=== PATIENT | female | born 1970 | race Caucasian/White ===

== ENCOUNTER → 2017-11-20 15:01 | Outpatient (CLI) | payer OTHER, MEDICAID, SELFPAY ==
--- NOTE | 2017-11-20 | DI.MRI.S_ITS ---
PROCEDURE: MRFOOT LT WO CON INDICATIONS: LEFT FOOT PAIN TECHNIQUE: Noncontrast sagittal T1 spin echo and T2 fast spin echo with fat saturation, long-axis T1 spin echo and T2 fast spin echo with fat saturation, short-axis T1 spin echo and T2 fast spin echo with fat saturation through the forefoot. COMPARISON: None. FINDINGS: Image quality: Excellent. Bones and joints: No bone marrow contusions or metatarsal stress fractures. The sesamoid bones appear in expected positions, without internal edema. Moderate first metatarsophalangeal joint degeneration. Mild diffuse midfoot degenerative spurring. No intraosseous lesions. Soft tissues: The visualized plantar foot muscles demonstrate normal signal and bulk. Visualized flexor and extensor tendons appear intact, without tenosynovitis. The distal insertions of the peroneus brevis and longus tendons appear intact. The principal Lisfranc ligament appears intact. No soft tissue ganglion cysts or bursal fluid collections. Sagittal images demonstrate no evidence for plantar plate tears. IMPRESSION: Moderate first MTP joint degeneration. Otherwise, grossly unremarkable examination as detailed above.. Dictated by: Sunil Naik M.D. on 11/20/2017 at 17:15 Approved by: Sunil Naik M.D. on 11/20/2017 at 17:22
== END ==
PROVIDERS: PCP Orthopaedic Surgery Foot and Ankle Surgery; Visit Provider Orthopaedic Surgery Foot and Ankle Surgery
DX: M19.072 Primary osteoarthritis, left ankle and foot (principal); M77.42 Metatarsalgia, left foot; M79.672 Pain in left foot
CPT/HCPCS: 73718

== ENCOUNTER 2017-12-06 21:11 | Emergency (ER) | payer OTHER, MEDICAID, SELFPAY ==
[2017-12-06 21:16] VITALS: BP 137/88; PULSE 86; RESP 18; TEMP 36.6; O2SAT 99; BMI 31.6
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
[2017-12-07 01:15] VITALS: BP 121/87; PULSE 83; O2SAT 96
== END 2017-12-07 01:49 | disposition home or self-care (01) ==
PROVIDERS: Emergency Provider Emergency Medicine; PCP Orthopaedic Surgery Foot and Ankle Surgery
DX: S00.93XA Contusion of unspecified part of head, initial encounter (principal); W20.8XXA Other cause of strike by thrown, projected or falling object, initial encounter
CPT/HCPCS: 70450; 99282; 99284

== ENCOUNTER 2018-07-02 14:22 | Emergency (ER) | payer OTHER, MEDICAID, SELFPAY ==
[2018-07-02 14:44] VITALS: BP 138/87; PULSE 78; RESP 20; TEMP 37.3; O2SAT 100
--- NOTE | 2018-07-02 14:49 | DI.US.S_ITS ---
PROCEDURE: US PERIPH VENOUS LOW EXTREM LT INDICATIONS: LEFT LEG PAIN/NUMBNESS TECHNIQUE: Real-time imaging, as well as color and pulse Doppler interrogation, were performed of the lower extremity deep veins from the inguinal ligament to the popliteal fossa. COMPARISON: None. FINDINGS: The deep veins are normally compressible, and free of intraluminal thrombus. Color and pulse Doppler demonstrate normal phasic intraluminal flow. There is normal augmentation response to distal compression maneuver. IMPRESSION: No deep vein thrombosis of the left lower extremity. Dictated by: Regina Schwartz M.D. on 07/02/2018 at 15:34 Approved by: Regina Schwartz M.D. on 07/02/2018 at 15:35
[2018-07-02 15:22] LABS: Add Manual Diff / Slide Review NO; Basophils Absolute Auto 0 /uL (0-100); Basophils Percent Auto 0.5 % (0-2); Eosinophils Absolute Auto 100 /uL (0-450); Eosinophils Percent Auto 1.4 % (2-4); Hematocrit 41.3 % (36-46); Hemoglobin 14.2 g/dL (12.0-16.0); Lymphocytes Absolute Auto 1600 /uL (1100-4500); Mean Corpuscular HGB Conc 34.4 % (30-36); Mean Corpuscular Hemoglobin 32.6 PG (26-34); Monocytes Absolute Auto 500 /uL (0-900); Monocytes Percent Auto 8.8 % (3-14); Neutrophils Absolute Auto 3600 /uL (1500-7000); Neutrophils Percent Auto 61.3 % (50-75); Platelet Count 236 X10^3/uL (150-400); Red Blood Cell Count 4.35 X10^6/uL (4.0-5.2); Red Cell Distribution Width 11.8 % (11.6-14.8); White Blood Cell Count 5.8 X10^3/uL (4.5-11.0)
[2018-07-02 15:23] LABS: Alanine Aminotransferase 29 IU/L (9-52); Albumin 4.4 g/dL (3.5-5.0); Albumin Globulin Ratio 1.3 (1.0-2.8); Alkaline Phosphatase 72 U/L (38-126); Aspartate Aminotransferase 24 IU/L (14-36); Bilirubin Total 0.6 mg/dL (0.2-1.3); Blood Urea Nitrogen 12 mg/dL (7-17); Calcium 9.3 mg/dL (8.4-10.2); Carbon Dioxide 29 mmol/L (22-32); Chloride 103 mmol/L (98-107); Estimated Glomerular Filt Rate > 60.0 mL/min (>60); Globulin 3.5 g/dL (1.7-4.1); Glucose 88 mg/dL (70-100); HEMOLYSIS < 15 (0-50); Potassium 3.9 mmol/L (3.4-5.1); Sodium 140 mmol/L (137-145); Total Protein 7.9 g/dL (6.3-8.2)
[2018-07-02 15:59] LABS: D Dimer < 200 ng/mL (<230)
--- NOTE | 2018-07-02 16:44 | PC.NURSE ---
pt requested note in chart stating she has had Vanco in the past with and did not have a reaction, also that she can take levofloxacin and flagyl IV only and after benadryl
--- NOTE | 2018-07-02 17:20 | ED_ITS ---
HPI - Extremity Problem <Jillian Mcdaniel PA-C - Last Filed: 07/02/18 21:59> General Chief complaint: Extremity Problem,Nontraumatic Stated complaint: left leg pain, thinks she has a blood clot,numb Time Seen by Provider: 07/02/18 17:10 Source: patient Mode of arrival: ambulatory Limitations: no limitations History of Present Illness HPI Narrative: this 47-year-old female comes to ED due to left leg symptoms that started 06/30. She states that she noted a pricking and burning sensation with the light touch of fabric, and noted redness on the kneecap and around the proximal border. She was concerned about possible infection though she has not had any bites or wounds. She washed it with Betadine and peroxide then applied mupirocin and rash was gone the next day. On the , she felt like her left foot was cold, numb, and heavy . She talked to a nurse that she knows and was able to move the foot and ankle normally and could feel her pulses so decided to monitor. She noticed after standing for a bit that the foot felt warm and noticed a warm sensation in her davis, and then began to have some pain in the calf especially with flexing her foot, so decided to come in due to that, concerned about possible blood clot She does have a history of the low back pain with a history of L5 herniated disc and pain across her back, but states this does not feel typical for that. She states that she does have pain down her leg but feels like it travels up the leg rather down the back of it. She does not have history of blood clots She denies any rash, fever, bites or wounds, or known exposures. She notes that she has also had the 2 week history of right-sided pain in the liver area and states she can have pain while breathing in at times. She notes that she has been drinking more alcohol during that time, up to 5 or 6 drinks nightly verses usual 3 or maximum 4 due to stressors. she states that she stopped that a few days ago. She has not had any nausea or vomiting. She has not had any urinary symptoms or bowel changes, again denies fever. She states that she has had intermittent gallbladder pain for 15 or more years and modified her diet and treats this on her own as she would never consider surgery for this. She has also been told that she has fatty liver. She denies any dyspnea or wheeze. She denies any upper respiratory symptoms or illness. Denies any recent travel or exposures. Denies any new medications or herbal preparation. She has not had any other chest pain. States she had 1-2 minutes of abdominal pain last night that resolved Related Data Home Medications Medication Instructions Recorded Confirmed cholecalciferol (vitamin D3) 2,000 iu PO DAILY #0 04/11/11 07/02/18 [Vitamin D3] omega 1-hxp-qjv-fish oil [Fish Oil] 1 cap PO DAILY #0 04/11/11 07/02/18 vitamin E 400 unit PO DAILY #0 04/11/11 07/02/18 Previous Rx's Medication Instructions Recorded mupirocin calcium 2 % TOPICAL TID #1 tube 12/29/11 mupirocin calcium 1 applictn TOP BID #60 gram 07/02/18 Allergies Allergy/AdvReac Type Severity Reaction Status Date / Time amoxicillin [AMOXICILLIN] Allergy Intermediate Unverified 08/16/17 12:16 aspirin [ASPIRIN] Allergy Intermediate Unverified 08/16/17 12:16 clindamycin [CLINDAMYCIN] Allergy Intermediate Unverified 08/16/17 12:16 doxycycline [DOXYCYCLINE] Allergy Intermediate Unverified 08/16/17 12:16 erythromycin base Allergy Intermediate Unverified 08/16/17 12:16 [From ERYTHROCIN] Penicillins [PENICILLINS] Allergy Intermediate Unverified 08/16/17 12:16 Review of Systems <Jillian Mcdaniel PA-C - Last Filed: 07/02/18 21:59> Review of Systems ROS Unobtainable: All systems reviewed & are unremarkable except as noted in HPI and below PFSH <Jillian Mcdaniel PA-C - Last Filed: 07/02/18 21:59> Medical History H/O chronic cholecystitis (Chronic) Healthy adult (Chronic) Herniated nucleus pulposus, L5-S1 (Chronic) No pertinent family history (Chronic) Surgical History No pertinent past surgical history (Chronic) Social History Smoking Status: Never smoker Social History Smoking Status: Never smoker Exam <Jillian Mcdaniel PA-C - Last Filed: 07/02/18 21:59> Narrative Exam Narrative: GENERAL APPEARANCE: Patient sitting comfortably, in no distress. HEENT: PERRL, EOMI, no scleral icterus NECK: Supple LUNGS: Clear to auscultation bilaterally. HEART: Rate and rhythm regular, normal S1 and S2, no S3 or S4. ABDOMEN: Soft, nondistended, bowel sounds present x 4 quadrants, no masses palpable. moderate localized tenderness at the right costal margin without guarding or rebound. No CVAT EXTREMITIES: No edema, no cyanosis. Pedal pulses intact. No point tenderness over the calf DERMATOLOGIC: No jaundice or exanthem NEUROLOGIC: Alert and oriented with normal speech and coordination. +left straight leg raise, negative on the right MUSCULOSKELETAL: no point tenderness over the lumbosacral spine. Strength 5/5 throughout bilateral hip flexors, knee extensors, foot plantar flexion Initial Vital Signs Initial Vital Signs: Vital Signs Temperature 99.2 F 07/02/18 14:44 Pulse Rate 78 07/02/18 14:44 Respiratory Rate 20 07/02/18 14:44 Blood Pressure 138/87 07/02/18 14:44 Pulse Oximetry 100 07/02/18 14:44 <Tiff Piña DO - Last Filed: 07/03/18 12:29> Initial Vital Signs Initial Vital Signs: Vital Signs Temperature 99.2 F 07/02/18 14:44 Pulse Rate 78 07/02/18 14:44 Respiratory Rate 20 07/02/18 14:44 Blood Pressure 138/87 07/02/18 14:44 Pulse Oximetry 100 07/02/18 14:44 Course <Jillian Mcdaniel PA-C - Last Filed: 07/02/18 21:59> Additional Information: patient came in today mainly due to developing symptoms with her left leg over the last few days and concern for possible blood clot. Testing was negative today. She has had other ongoing symptoms for a couple of weeks, no acute change. She has a long history apparently of gallbladder symptoms which wax and wane that she treats on her own. She would not consider surgery or intervention for this. She is afebrile, not having any vomiting or worsening pain. Offered further workup option versus follow up as an outpatient and she elects the ladder and agrees to follow up with her primary care clinic for this as well as her leg symptoms, which could be related to herniated disc though are atypical. Return precautions reviewed and she is agreeable Orders Ordered: ED Orders 07/02/18 14:49 US periph venous low extrem lt Stat 07/02/18 15:00 Complete Blood Count AUTO DIFF Stat Comprehensive Metabolic Panel Stat DD [D Dimer] Stat Vital Signs - 8 hr 07/02/18 14:44 07/02/18 17:30 Temperature 99.2 F 98.6 F Pulse Rate 78 81 Respiratory Rate 20 19 Blood Pressure 138/87 Blood Pressure [Left Arm] 124/70 Pulse Oximetry 100 99 <Tiff Piña DO - Last Filed: 07/03/18 12:29> Orders Ordered: ED Orders 07/02/18 14:49 US periph venous low extrem lt Stat 07/02/18 15:00 Complete Blood Count AUTO DIFF Stat Comprehensive Metabolic Panel Stat DD [D Dimer] Stat Vital Signs - 8 hr 07/02/18 14:44 07/02/18 17:30 Temperature 99.2 F 98.6 F Pulse Rate 78 81 Respiratory Rate 20 19 Blood Pressure 138/87 Blood Pressure [Left Arm] 124/70 Pulse Oximetry 100 99 MDM - Extremity (Nontraumatic) <Jillian Mcdaniel PA-C - Last Filed: 07/02/18 21:59> Lab Data Result diagrams: 07/02/18 15:00 07/02/18 15:00 Lab Results 07/02/18 07/02/18 07/02/18 Range/Units 15:00 15:00 15:00 WBC 5.8 (4.5-11.0) X10^3/uL RBC 4.35 (4.0-5.2) X10^6/uL Hgb 14.2 (12.0-16.0) g/dL Hct 41.3 (36-46) % MCV 95.0 (80-100) fL MCH 32.6 (26-34) PG MCHC 34.4 (30-36) % RDW 11.8 (11.6-14.8) % Plt Count 236 (150-400) X10^3/uL Neut % (Auto) 61.3 (50-75) % Lymph % (Auto) 28.0 (25-40) % Patrick % (Auto) 8.8 (3-14) % Eos % (Auto) 1.4 L (2-4) % Baso % (Auto) 0.5 (0-2) % Neut # (Auto) 3600 (7558-7629) /uL Lymph # (Auto) 1600 (5087-3926) /uL Patrick # (Auto) 500 (0-900) /uL Eos # (Auto) 100 (0-450) /uL Baso # (Auto) 0 (0-100) /uL D-Dimer < 200 (<230) ng/mL Sodium 140 (137-145) mmol/L Potassium 3.9 (3.4-5.1) mmol/L Chloride 103 (98-107) mmol/L Carbon Dioxide 29 (22-32) mmol/L BUN 12 (7-17) mg/dL Creatinine 0.60 (0.52-1.04) mg/dL Estimated GFR > 60.0 (>60) mL/min BUN/Creatinine Ratio 20.0 (6-22) Glucose 88 (70-100) mg/dL Calcium 9.3 (8.4-10.2) mg/dL Total Bilirubin 0.6 (0.2-1.3) mg/dL AST 24 (14-36) IU/L ALT 29 (9-52) IU/L Alkaline Phosphatase 72 (38-126) U/L Total Protein 7.9 (6.3-8.2) g/dL Albumin 4.4 (3.5-5.0) g/dL Globulin 3.5 (1.7-4.1) g/dL Albumin/Globulin Ratio 1.3 (1.0-2.8) <Tiff Piña, DO - Last Filed: 07/03/18 12:29> Lab Data Lab Results 07/02/18 07/02/18 07/02/18 Range/Units 15:00 15:00 15:00 WBC 5.8 (4.5-11.0) X10^3/uL RBC 4.35 (4.0-5.2) X10^6/uL Hgb 14.2 (12.0-16.0) g/dL Hct 41.3 (36-46) % MCV 95.0 (80-100) fL MCH 32.6 (26-34) PG MCHC 34.4 (30-36) % RDW 11.8 (11.6-14.8) % Plt Count 236 (150-400) X10^3/uL Neut % (Auto) 61.3 (50-75) % Lymph % (Auto) 28.0 (25-40) % Patrick % (Auto) 8.8 (3-14) % Eos % (Auto) 1.4 L (2-4) % Baso % (Auto) 0.5 (0-2) % Neut # (Auto) 3600 (8344-0638) /uL Lymph # (Auto) 1600 (2389-6726) /uL Patrick # (Auto) 500 (0-900) /uL Eos # (Auto) 100 (0-450) /uL Baso # (Auto) 0 (0-100) /uL D-Dimer < 200 (<230) ng/mL Sodium 140 (137-145) mmol/L Potassium 3.9 (3.4-5.1) mmol/L Chloride 103 (98-107) mmol/L Carbon Dioxide 29 (22-32) mmol/L BUN 12 (7-17) mg/dL Creatinine 0.60 (0.52-1.04) mg/dL Estimated GFR > 60.0 (>60) mL/min BUN/Creatinine Ratio 20.0 (6-22) Glucose 88 (70-100) mg/dL Calcium 9.3 (8.4-10.2) mg/dL Total Bilirubin 0.6 (0.2-1.3) mg/dL AST 24 (14-36) IU/L ALT 29 (9-52) IU/L Alkaline Phosphatase 72 (38-126) U/L Total Protein 7.9 (6.3-8.2) g/dL Albumin 4.4 (3.5-5.0) g/dL Globulin 3.5 (1.7-4.1) g/dL Albumin/Globulin Ratio 1.3 (1.0-2.8) Discharge Plan Departure Patient Disposition: Home Clinical Impression: Acute pain of left lower extremity, Right upper quadrant abdominal pain Discharge Date/Time: 07/02/18 18:24 Interventions: ED Discharge Assessment Last Done: 07/02/18 18:24 Instructions: DI for Leg Pain Activity Restrictions/Additional Instructions: Please return as we talked about if you have any acutely worsening symptoms, i.e. worsening right side pain, severe respiratory difficulties, new vomiting etc. Otherwise, please call your PCP office 1st thing tomorrow and let them know you were seen in the emergency room so that you can arrange follow-up. The source of your left leg pain is not clear today. You are correct in that it is not typical pain, however on exam this is most consistent with pain that could be generated from your low back. You should follow-up with your PCP on this to determine whether to do further testing or treatment. I did send more mupirocin in since the redness you had initially seems to have resolved with that. Your blood test for clotting today was negative/normal, and your ultrasound did not show any blood clots in the leg including the lower leg on the radiologist's reading Since you have had problems with your gallbladder for so long and this pain has been going on for a couple of weeks, it is okay to monitor and treat as you are usually do, but you should follow up to make sure it is getting better. Pain from the gallbladder can be referred to the back and rib area although of course it is not clear whether this is the cause today. Avoid drinking excess alcohol. Your liver function tests, white and red cells, clotting cells, electrolytes and kidney function tests are normal today. Prescriptions: New mupirocin calcium 2 % cream 1 applictn TOP BID Qty: 60 RF: 0 No Action vitamin E 400 unit Capsule 400 unit PO DAILY Qty: 0 RF: 0 cholecalciferol (vitamin D3) [Vitamin D3] 2,000 UNIT capsule 2,000 iu PO DAILY Qty: 0 RF: 0 omega 7-nfe-hhx-fish oil [Fish Oil] 1,000 mg (120 mg-180 mg) Capsule 1 cap PO DAILY Qty: 0 RF: 0 mupirocin calcium 2 % cream 2 % Topical TID Qty: 1 RF: 0 Referrals: [facility] [Other] <Tiff Piña DO - Last Filed: 07/03/18 12:29> Cosign ED Attending Toniature Attestation: I was immediately available in the department for consultation. Documentation has been reviewed. I agree with assessment and plan.
[2018-07-02 17:30] VITALS: BP 124/70; PULSE 81; RESP 19; TEMP 37; O2SAT 99
== END 2018-07-02 18:24 | disposition home or self-care (01) ==
PROVIDERS: Emergency Provider Internal Medicine; PCP Orthopaedic Surgery Foot and Ankle Surgery
DX: M79.605 Pain in left leg (principal); R10.11 Right upper quadrant pain
CPT/HCPCS: 36415; 80053; 85025; 85379; 93971; 99282; 99284

== ENCOUNTER 2018-09-04 15:24 | Emergency (ER) | payer OTHER, MEDICAID, SELFPAY ==
[2018-09-04 15:51] VITALS: BP 122/79; PULSE 87; RESP 20; TEMP 37.1; O2SAT 99
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
--- NOTE | 2018-09-04 20:16 | ED.UPPEXIN ---
HPI - Extremity Injury (Upper) General Chief Complaint: Extremity Injury, Upper Stated Complaint: pain in chest Time Seen by Provider: 09/04/18 20:16 Source: patient Mode of arrival: ambulatory Limitations: no limitations History of Present Illness HPI narrative: Patient is a 48-year-old female who approximately 1 week ago sustained an injury where she had the handle of a lawn aerater hit her in the epigastrium and then run down along her ribs on the right-hand side. She states that this happened several days ago. She thought that things were improving better now worsening. She has seen a chiropractor told her to come to get an x-ray to make sure she did not have a broken rib or ?punctured lung ? Related Data Home Medications Medication Instructions Recorded Confirmed cholecalciferol (vitamin D3) 2,000 iu PO DAILY #0 04/11/11 07/02/18 [Vitamin D3] omega 8-rph-tki-fish oil [Fish Oil] 1 cap PO DAILY #0 04/11/11 09/04/18 vitamin E 400 unit PO DAILY #0 04/11/11 07/02/18 mupirocin 1 applic TOPICAL BID 09/04/18 09/04/18 Allergies Allergy/AdvReac Type Severity Reaction Status Date / Time amoxicillin [AMOXICILLIN] Allergy Intermediate Unverified 08/16/17 12:16 aspirin [ASPIRIN] Allergy Intermediate Unverified 08/16/17 12:16 clindamycin [CLINDAMYCIN] Allergy Intermediate Unverified 08/16/17 12:16 doxycycline [DOXYCYCLINE] Allergy Intermediate Unverified 08/16/17 12:16 erythromycin base Allergy Intermediate Unverified 08/16/17 12:16 [From ERYTHROCIN] Penicillins [PENICILLINS] Allergy Intermediate Unverified 08/16/17 12:16 Review of Systems Constitutional Denies fever(s) and Denies headache(s) ENT Ears, Nose, Mouth, and Throat: Denies headache(s) Cardiovascular Denies chest pain and Reports dyspnea (With cough) Respiratory Reports pain on inspiration, Reports pain with cough and Reports dyspnea (With cough) Gastrointestinal Gastrointestinal: Reports abdominal pain (Right upper quadrant/right flank) and Denies diarrhea Genitourinary Denies dysuria Musculoskeletal Denies back pain, Denies myalgias and Denies arthralgias Integumentary/Breasts Denies lesions and Denies rash Neurologic Denies headache(s) Hematologic/Lymphatic Denies easy bleeding and Denies easy bruising [facility] Medical History H/O chronic cholecystitis (Chronic) Healthy adult (Chronic) Herniated nucleus pulposus, L5-S1 (Chronic) No pertinent family history (Chronic) Surgical History (Updated 07/02/18 @ 18:18 by Jillian Mcdaniel PA-C) No pertinent past surgical history (Chronic) Social History Smoking Status: Never smoker Social History Smoking Status: Never smoker Exam Initial Vital Signs Initial Vital Signs: Vital Signs Temperature 98.8 F 09/04/18 15:51 Pulse Rate 87 09/04/18 15:51 Respiratory Rate 20 09/04/18 15:51 Blood Pressure 122/79 09/04/18 15:51 Pulse Oximetry 99 09/04/18 15:51 Const General: cooperative, healthy appearing, comfortable, well developed, well groomed and No acute distress Orientation: alert, awake and oriented x3 HENMT Head: normal to inspection and normocephalic Chest Other: Tenderness to palpation right lower ribs Resp Effort & Inspection: normal respiratory effort Auscultation: clear to auscultation bilaterally Cardio Rate: regular rate Rhythm: regular rhythm Pulses: radial pulses present GI Inspection: non-distended Palpation: soft, No firm and tender (Right upper quadrant over the lower ribs) Back/Spine/Pelvis Back: No CVA tenderness Skin Lesions: no lesions Rashes: no rashes Neuro General: alert, awake and oriented x3 Extrem General: normal to inspection and capillary refill normal Course Orders Ordered: Discontinued Medications Sodium Chloride (Normal Saline 0.9%) 1,000 mls @ 1,000 mls/hr IV BOLUS ONE Stop: 09/04/18 21:42 Vital Signs - 8 hr 09/04/18 20:41 Pulse Rate 76 Respiratory Rate 17 Blood Pressure [Left Arm] 121/80 Pulse Oximetry 99 MDM - Extremity Injury (Upper) Imaging Data Rib x-ray: Radiologist's impression: [address] [address] XRay Report Signed Patient: Kaur Farr [facility]#: [id number] : 1970Acct:[id number] Age/Sex: 48 / FDate of Service: 09/04/18 Loc: ED Accession Number: [id number] Procedure: XR ribs RT min 3V w CXR1V Ordering Provider: Raquel Vazquez PROCEDURE: XR RIBS RT MIN 3V W CXR 1V INDICATIONS: right side lower rib pain, struck in chest by warp knitter handle TECHNIQUE: 3 views of the right ribs were acquired, along with a single view chest. COMPARISON: None. FINDINGS: Surgical changes and devices: None. Bones and chest wall: There is a questionable nondisplaced of the right lateral eighth rib. No suspicious bony lesions. Overlying soft tissues appear unremarkable. Lungs and pleura: No pleural effusions or pneumothorax. Lungs appear clear. Mediastinum: Mediastinal contours appear normal. Heart size is normal. IMPRESSION: Questionable nondisplaced right lateral eighth rib fracture, not well-seen on all views. Dictated by: Martha Cavanaugh M.D. on 09/04/2018 at 16:14 Approved by: Martha Cavanaugh M.D. on 09/04/2018 at 16:2 ECG Data Attestation: I personally reviewed and interpreted this ECG as follows: Prior ECG tracings: not available for review Interpretation: Sinus rhythm Ventricular rate 84 Normal axis Normal QRS Normal QTC No ST T wave changes MDM Narrative Medical decision making narrative: Patient has no respiratory distress. Does have tenderness to palpation over was called as a questionable lateral right 8th rib fracture. She has no underlying lung issues noted on the x-ray. She does have epigastric and right upper quadrant pain however her symptoms have been going on for the past week. I do have a low suspicion for intra-abdominal issue however I did offer a CT scan to the patient. She stated that she did not want an IV. I informed her that if we were concerned about a potential liver or other internal bleeding that we did need IV contrast. Patient stated that she was concerned about having an allergy to this medication even though she has never had a reaction to a CT scan in the past. Patient was concerned about ?puncturing along ?I did try to provide reassurance with regard to this. Patient did not want any pain medication because she was afraid she was going to have an allergic reaction to it. Will hold on further workup for now. Patient was given return precautions and follow-up instructions. She expressed understanding and agreement with plan Discharge Plan Departure Patient Disposition: Home Clinical Impression: Fracture, rib Qualifiers: Encounter type: initial encounter Rib fracture type: single rib Fracture type: closed Laterality: right Qualified Code(s): S22.31XA - Fracture of one rib, right side, initial encounter for closed fracture Discharge Date/Time: 09/04/18 20:53 Interventions: ED Discharge Assessment Last Done: 09/04/18 20:52 Instructions: DI for Rib Fracture Activity Restrictions/Additional Instructions: Contact your primary care doctor for a follow-up. Return to the emergency department for any new or worsening symptoms Prescriptions: No Action vitamin E 400 unit Capsule 400 unit PO DAILY Qty: 0 RF: 0 cholecalciferol (vitamin D3) [Vitamin D3] 2,000 UNIT capsule 2,000 iu PO DAILY Qty: 0 RF: 0 omega 1-vwe-ojp-fish oil [Fish Oil] 1,000 mg (120 mg-180 mg) Capsule 1 cap PO DAILY Qty: 0 RF: 0 mupirocin 2 % ointment 1 applic topical BID RF: 0 Referrals: Citlali Earl MD [Primary Care Provider] -
[2018-09-04 20:41] VITALS: BP 121/80; PULSE 76; RESP 17; O2SAT 99
== END 2018-09-04 20:53 | disposition home or self-care (01) ==
PROVIDERS: Emergency Provider Emergency Medicine; PCP Orthopaedic Surgery Foot and Ankle Surgery
DX: S22.31XA Fracture of one rib, right side, initial encounter for closed fracture (principal)
CPT/HCPCS: 71101; 93005; 99282; 99284

== ENCOUNTER 2019-01-28 17:04 | Emergency (ER) | payer OTHER, MEDICAID, SELFPAY ==
[2019-01-28 17:16] VITALS: BP 137/88; PULSE 88; RESP 20; TEMP 37.1; O2SAT 100
--- NOTE | 2019-01-28 20:01 | ED_ITS ---
HPI - Skin/Abscess/Foreign Bdy General Chief complaint: Skin/Abscess/Foreign Body Stated complaint: Bug bite, red ring and stiff neck, numbness Time Seen by Provider: 01/28/19 18:22 Source: patient Mode of arrival: Ambulatory Limitations: no limitations History of Present Illness HPI narrative: Patient is here with multiple complaints. Patient states that yesterday morning she woke up with pain in the right side of her neck. She also has tingling on the right side of her face. She states that she was drooling down the right side of her face at the time. She states that she became concerned about the symptoms. She had a friend come over and they cleaned her room. She states that she found what she thought was a tick in her room when she put in a plastic bag and brought her in. She also states she found a spider in her room. She had her friend look at the right side of her neck and her friend stated that there was a bruise to/red vernell on the right side of her neck. Patient is concerned about Lyme disease. No fevers. No other neurologic symptoms. Related Data Home Medications Medication Instructions Recorded Confirmed cholecalciferol (vitamin D3) 2,000 iu PO DAILY #0 04/11/11 07/02/18 [Vitamin D3] omega 4-rrk-oqh-fish oil [Fish Oil] 1 cap PO DAILY #0 04/11/11 09/04/18 vitamin E 400 unit PO DAILY #0 04/11/11 07/02/18 mupirocin 1 applic TOPICAL BID 09/04/18 09/04/18 Allergies Allergy/AdvReac Type Severity Reaction Status Date / Time amoxicillin [AMOXICILLIN] Allergy Intermediate Unverified 08/16/17 12:16 aspirin [ASPIRIN] Allergy Intermediate Unverified 08/16/17 12:16 clindamycin [CLINDAMYCIN] Allergy Intermediate Unverified 08/16/17 12:16 doxycycline [DOXYCYCLINE] Allergy Intermediate Unverified 08/16/17 12:16 erythromycin base Allergy Intermediate Unverified 08/16/17 12:16 [From ERYTHROCIN] Penicillins [PENICILLINS] Allergy Intermediate Unverified 08/16/17 12:16 Review of Systems Constitutional Constitutional: Denies chills, Denies fever(s) and Denies lethargy Eyes Eyes: Denies change in vision ENT Comments: Fullness in her right ear pain on the right side of her neck, redness on the right side of her neck, tingling on the right side of her face Cardiovascular Cardiovascular: Denies chest pain and Denies dyspnea Respiratory Respiratory: Denies dyspnea Gastrointestinal Gastrointestinal: Denies abdominal pain, Denies nausea and Denies vomiting Genitourinary Genitourinary: Denies dysuria Musculoskeletal Musculoskeletal: Denies myalgias and Denies arthralgias Integumentary/Breasts Comments: Rash on the right side of her neck Neurologic Comments: Tingling right side of the face Hematologic/Lymphatic Hematologic/Lymphatic: Denies easy bleeding and Denies easy bruising Allergic/Immunologic Allergic/Immunologic: Denies urticaria [facility] Medical History H/O chronic cholecystitis (Chronic) Healthy adult (Chronic) Herniated nucleus pulposus, L5-S1 (Chronic) No pertinent family history (Chronic) Surgical History No pertinent past surgical history (Chronic) Social History Smoking Status: Never smoker Social History Smoking Status: Never smoker Exam Initial Vital Signs Initial Vital Signs: Vital Signs Temperature 98.8 F 01/28/19 17:16 Pulse Rate 88 01/28/19 17:16 Respiratory Rate 20 01/28/19 17:16 Blood Pressure 137/88 01/28/19 17:16 Pulse Oximetry 100 01/28/19 17:16 Const General: cooperative, healthy appearing, comfortable, well developed, well groomed and No acute distress Orientation: alert, awake and oriented x3 [facility]: normal to inspection and normocephalic Ears: TM normal on the right Nose: external nose normal Face and sinus: normal facial exam Mouth: oral mucosae normal Throat: posterior oropharynx normal Eyes Pupils: PERRL Neck Neck: normal visual inspection, trachea midline, No anterior neck swelling and No lymphadenopathy Thyroid: thyroid normal Lymphatic: No lymphadenopathy Chest Chest: normal inspection of the chest Resp Effort & Inspection: normal respiratory effort Auscultation: clear to auscultation bilaterally Cardio Rate: regular rate Rhythm: regular rhythm Skin Lesions: no lesions Rashes: no rashes Wounds: no wounds Neuro General: alert, awake and oriented x3 Cognition: normal cognition Speech: speech normal Gait: normal gait Motor: muscle tone normal throughout Sensory Exam: no sensory deficits noted Extrem General: normal to inspection and capillary refill normal Psych Appearance: grossly normal and well kempt Course Orders Ordered: ED Orders 01/28/19 20:15 Basic Metabolic Panel Stat C-Reactive Protein Quant Stat Complete Blood Count AUTO DIFF Stat Erythrocyte Sedimentation Rate Stat Thyroid Stimulating Hormone Stat Vital Signs Vital signs: Vital Signs - 8 hr 01/28/19 20:43 01/28/19 22:13 Pulse Rate 70 75 Respiratory Rate 17 18 Blood Pressure [Right Arm] 130/77 134/79 Pulse Oximetry 100 97 MDM - Skin/Abscess/Foreign Bdy Lab Data Attestation: I reviewed the patient's lab results. Result diagrams: 01/28/19 20:15 01/28/19 20:15 Labs: Lab Results 01/28/19 01/28/19 01/28/19 Range/Units 20:15 20:15 20:15 WBC 7.5 (4.5-11.0) X10^3/uL RBC 4.49 (4.0-5.2) X10^6/uL Hgb 14.6 (12.0-16.0) g/dL Hct 42.6 (36-46) % MCV 95.0 (80-100) fL MCH 32.5 (26-34) PG MCHC 34.2 (30-36) % RDW 12.1 (11.6-14.8) % Plt Count 219 (150-400) X10^3/uL Neut % (Auto) 56.1 (50-75) % Lymph % (Auto) 30.8 (25-40) % [place] % (Auto) 10.8 (3-14) % Eos % (Auto) 2.0 (2-4) % Baso % (Auto) 0.3 (0-2) % Neut # (Auto) 4200 (3505-8062) /uL Lymph # (Auto) 2300 (9137-5991) /uL [place] # (Auto) 800 (0-900) /uL Eos # (Auto) 200 (0-450) /uL Baso # (Auto) 0 (0-100) /uL ESR 7 (0-20) MM/HR Sodium 140 (137-145) mmol/L Potassium 3.8 (3.4-5.1) mmol/L Chloride 102 (98-107) mmol/L Carbon Dioxide 30 (22-32) mmol/L BUN 13 (7-17) mg/dL Creatinine 0.50 L (0.52-1.04) mg/dL Estimated GFR > 60.0 (>60) mL/min BUN/Creatinine Ratio 26.0 H (6-22) Glucose 86 (70-100) mg/dL Calcium 9.4 (8.4-10.2) mg/dL C-Reactive Protein 0.6 (<1.0) mg/dL TSH 1.76 (0.47-4.68) uIU/mL MDM Narrative Medical decision making narrative: Patient is extremely worried about her symptoms. I see no redness or rashes on the right side of her neck. The pain on the right side of her neck is along the path of the sternocleidomastoid. Did inform her that I think that her neck pain was most likely from the way she was sleeping that night it was most likely a spasm of this muscle. Is not currently spasm. She does have tenderness along the right temporal artery. Her workup for temporal arteritis is unremarkable. I did evaluate which she thought was the tick that she found in her room. This was a black speck in a plastic bag. I cannot say for certain that this is a tick. She has no rashes throughout her body. Her physical exam is not consistent with stroke. Not consistent with a TIA. Not consistent with ACS. Her thyroid is unremarkable. Tried to provide reassurance to the patient that I did not think that she had Lyme disease. Informed her that she does need to follow up with her primary doctor. She was given return precautions. She expressed understanding and agreement with plan. Discharge Plan Departure Patient Disposition: Home Clinical Impression: Muscle spasm Discharge Date/Time: 01/28/19 22:14 Instructions: DI for Cervical Muscle Strain Activity Restrictions/Additional Instructions: You have no rashes today that are concerning for Lyme disease. I do believe that your right neck pain is a muscle spasm. You can use heat and/or ice for this along with NSAID's like motrin. Contact your primary care privider for a follow up. Return to the ER for any new symptoms. Prescriptions: No Action vitamin E 400 unit Capsule 400 unit PO DAILY Qty: 0 RF: 0 cholecalciferol (vitamin D3) [Vitamin D3] 2,000 UNIT capsule 2,000 iu PO DAILY Qty: 0 RF: 0 omega 3-clq-xjr-fish oil [Fish Oil] 1,000 mg (120 mg-180 mg) Capsule 1 cap PO DAILY Qty: 0 RF: 0 mupirocin 2 % ointment 1 applic topical BID RF: 0 Referrals: Citlali Earl MD [Primary Care Provider] -
[2019-01-28 20:24] LABS: Add Manual Diff / Slide Review NO; Basophils Absolute Auto 0 /uL (0-100); Basophils Percent Auto 0.3 % (0-2); Eosinophils Absolute Auto 200 /uL (0-450); Hematocrit 42.6 % (36-46); Hemoglobin 14.6 g/dL (12.0-16.0); Lymphocytes Absolute Auto 2300 /uL (1100-4500); Lymphocytes Percent Auto 30.8 % (25-40); Mean Corpuscular HGB Conc 34.2 % (30-36); Mean Corpuscular Hemoglobin 32.5 PG (26-34); Monocytes Absolute Auto 800 /uL (0-900); Monocytes Percent Auto 10.8 % (3-14); Neutrophils Absolute Auto 4200 /uL (1500-7000); Neutrophils Percent Auto 56.1 % (50-75); Platelet Count 219 X10^3/uL (150-400); Red Blood Cell Count 4.49 X10^6/uL (4.0-5.2); Red Cell Distribution Width 12.1 % (11.6-14.8); White Blood Cell Count 7.5 X10^3/uL (4.5-11.0)
[2019-01-28 20:38] LABS: Blood Urea Nitrogen 13 mg/dL (7-17); C-Reactive Protein Quant 0.6 mg/dL (<1.0); Calcium 9.4 mg/dL (8.4-10.2); Carbon Dioxide 30 mmol/L (22-32); Chloride 102 mmol/L (98-107); Estimated Glomerular Filt Rate > 60.0 mL/min (>60); Glucose 86 mg/dL (70-100); HEMOLYSIS < 15 (0-50); Potassium 3.8 mmol/L (3.4-5.1); Sodium 140 mmol/L (137-145)
--- NOTE | 2019-01-28 20:38 | PC.NURSE ---
no wound noted
[2019-01-28 20:41] LABS: Erythrocyte Sedimentation Rate 7 MM/HR (0-20)
[2019-01-28 20:43] VITALS: BP 130/77; PULSE 70; RESP 17; O2SAT 100
[2019-01-28 21:33] LABS: Thyroid Stimulating Hormone 1.76 uIU/mL (0.47-4.68)
[2019-01-28 22:13] VITALS: BP 134/79; PULSE 75; RESP 18; O2SAT 97
== END 2019-01-28 22:14 | disposition home or self-care (01) ==
PROVIDERS: Emergency Provider Emergency Medicine; PCP Orthopaedic Surgery Foot and Ankle Surgery
DX: M62.838 Other muscle spasm (principal)
CPT/HCPCS: 36415; 80048; 84443; 85025; 85651; 86140; 99282; 99283

== ENCOUNTER 2019-02-04 16:09 | Emergency (ER) | payer OTHER, MEDICAID, SELFPAY ==
[2019-02-04 16:18] VITALS: BP 134/86; PULSE 91; RESP 20; TEMP 37.1; O2SAT 100; BMI 30.7
[2019-02-04 16:23] VITALS: PULSE 99; RESP 14; O2SAT 100
[2019-02-04] MEDS: ALBUTEROL 2.5 MG/3 ML NEB (ADULT) INH (16:23)
--- NOTE | 2019-02-04 17:15 | DI.RAD.S_ITS ---
PROCEDURE: XR CHEST 1V INDICATIONS: SHORT OF BREATH AFTER CHEMICAL EXPOSURE TECHNIQUE: One view of the chest was acquired. COMPARISON: None. FINDINGS: Surgical changes and devices: None. Lungs and pleura: Mild diffuse interstitial prominence. Lungs are otherwise clear. No pleural effusions or pneumothorax. Mediastinum: Mediastinal contours appear normal. Heart size is normal. Bones and chest wall: No suspicious bony lesions. Overlying soft tissues appear unremarkable. IMPRESSION: No acute cardiopulmonary disease. Mild diffuse interstitial prominence. Dictated by: Perla Flaherty M.D. on 02/04/2019 at 18:33 Approved by: Perla Flaherty M.D. on 02/04/2019 at 18:34
[2019-02-04 17:57] LABS: Bacteria Urine None Seen; RBC Urine None Seen (0-5/HPF); WBC Urine None Seen (0-5/HPF)
[2019-02-04 17:58] LABS: Appearance Urine UA CLEAR; Bilirubin Urine UA NEGATIVE (NEGATIVE); Color Urine UA YELLOW; Glucose Urine UA NEGATIVE (Negative); Ketones Urine UA NEGATIVE (NEGATIVE); Leukocyte Esterase Urine UA NEGATIVE (NEGATIVE); Nitrite Urine UA NEGATIVE (Negative); Occult Blood Urine UA TRACE-LYSED (Negative); Protein Urine UA NEGATIVE (Negative); Specific Gravity Urine UA <=1.005 (1.000-1.035); Urobilinogen Urine UA 0.2 E.U./dL (0.2)
--- NOTE | 2019-02-04 18:01 | ED_ITS ---
HPI - Allergic Reaction <TONY Courtney - Last Filed: 02/04/19 20:44> General Chief complaint: Allergic Reaction Stated complaint: SOB Time Seen by Provider: 02/04/19 16:57 Source: patient Mode of arrival: Ambulatory Limitations: no limitations History of Present Illness HPI narrative: The patient is a 48-year-old female nonsmoker who presents with a chief complaint of shortness of breath after being exposed to several chemicals a few days ago. She states she was exposed to pain, cleaning solutions and other chemicals. She states that she has not been able to breathe well since. She denies any fevers nausea vomiting or diarrhea. She is concerned about pneumonia, especially given that she has allergies to ?every antibiotic other than. Some in IV form she has not taken anything at home to feel better. Related Data Home Medications Medication Instructions Recorded Confirmed cholecalciferol (vitamin D3) 2,000 iu PO DAILY #0 04/11/11 07/02/18 [Vitamin D3] omega 8-[id number]-fish oil [Fish Oil] 1 cap PO DAILY #0 04/11/11 09/04/18 vitamin E 400 unit PO DAILY #0 04/11/11 07/02/18 mupirocin 1 applic TOPICAL BID 09/04/18 09/04/18 Allergies Allergy/AdvReac Type Severity Reaction Status Date / Time amoxicillin [AMOXICILLIN] Allergy Intermediate Verified 02/04/19 16:18 aspirin [ASPIRIN] Allergy Intermediate Verified 02/04/19 16:18 clindamycin [CLINDAMYCIN] Allergy Intermediate Verified 02/04/19 16:18 doxycycline [DOXYCYCLINE] Allergy Intermediate Verified 02/04/19 16:18 erythromycin base Allergy Intermediate Verified 02/04/19 16:18 [From ERYTHROCIN] Penicillins [PENICILLINS] Allergy Intermediate Verified 02/04/19 16:18 Review of Systems <TONY Courtney - Last Filed: 02/04/19 20:44> Review of Systems Narrative: GENERAL: Denies chills, fatigue, malaise, fever, sweats. HEENT: Denies sinus pain, ear pain, sore throat, difficulty swallowing, dizziness. RESPIRATORY: See HPI CARDIOVASCULAR: Denies chest pain, palpitations, orthopnea, edema, GASTROINTESTINAL: Denies nausea, vomiting, abdominal pain, diarrhea, constipation, melena. : Denies dysuria, frequency, incontinence, hematuria, urinary retention. MUSCULOSKELETAL: denies weakness, joint pain, or bony pain SKIN: Denies rash, skin lesions, or other NEUROLOGIC: Denies weakness, headache, numbness, change in speech, confusion, seizures, incoordination. PSYCHIATRIC: No concerning psychosocial issues. 12 point review of systems is negative except for those stated above PFSH <TONY Courtney - Last Filed: 02/04/19 20:44> Medical History H/O chronic cholecystitis (Chronic) Healthy adult (Chronic) Herniated nucleus pulposus, L5-S1 (Chronic) No pertinent family history (Chronic) Surgical History No pertinent past surgical history (Chronic) Social History Smoking Status: Never smoker Social History Smoking Status: Never smoker Exam <TONY Courtney - Last Filed: 02/04/19 20:44> Narrative Exam Narrative: GENERAL: This is a well-nourished, well-developed patient, appears very anxious HEAD: Atraumatic. Normocephalic. No temporal or scalp tenderness. EYES: Pupils equal round and reactive. Extraocular motions intact. No scleral icterus. No injection or drainage. ENT: Nose without bleeding, purulent drainage or septal hematoma. Throat without erythema, tonsillar hypertrophy or exudate. Uvula midline. Airway patent. NECK: Trachea midline. No JVD or lymphadenopathy. Supple, nontender, no meningeal signs. CARDIOVASCULAR: Regular rate and rhythm RESPIRATORY: Clear to auscultation. Breath sounds equal bilaterally. No wheezes, rales, or rhonchi. No cough. No increased respiratory effort. No accessory muscle use. No stridor. GASTROINTESTINAL: Abdomen soft, non-tender, nondistended. No hepato-splenomegaly, or palpable masses. No guarding. EXTREMITIES: No clubbing, cyanosis, or edema. No joint tenderness, effusion, or edema noted. BACK: Nontender without deformity or crepitance. No flank tenderness. NEURO: AOx3. SKIN: No rash or erythema. Initial Vital Signs Initial Vital Signs: Vital Signs Temperature 98.8 F 02/04/19 16:18 Pulse Rate 91 H 02/04/19 16:18 Respiratory Rate 20 02/04/19 16:18 Blood Pressure 134/86 02/04/19 16:18 Pulse Oximetry 100 02/04/19 16:18 <Tiff Piña DO - Last Filed: 02/07/19 07:16> Initial Vital Signs Initial Vital Signs: Vital Signs Temperature 98.8 F 02/04/19 16:18 Pulse Rate 91 H 02/04/19 16:18 Respiratory Rate 20 02/04/19 16:18 Blood Pressure 134/86 02/04/19 16:18 Pulse Oximetry 100 02/04/19 16:18 Course <TONY Courtney - Last Filed: 02/04/19 20:44> Orders Ordered: Discontinued Medications Albuterol (Ventolin) 2.5 mg INH NOW ONE Stop: 02/04/19 16:22 Last Admin: 02/04/19 16:23 Dose: 2.5 mg Documented by: YESSI Diphenhydramine HCl (Benadryl) 50 mg PO NOW ONE Stop: 02/04/19 17:54 Last Admin: 02/04/19 18:20 Dose: 50 mg Documented by: REECE Potassium Chloride (Potassium Chloride) 20 meq PO NOW ONE Stop: 02/04/19 19:40 Last Admin: 02/04/19 20:43 Dose: Not Given Documented by: TERA Vital Signs Vital signs: Vital Signs - 8 hr 02/04/19 16:18 02/04/19 16:23 Temperature 98.8 F Pulse Rate 91 H 99 H Respiratory Rate 20 14 Blood Pressure 134/86 Pulse Oximetry 100 100 <Tiff Piña DO - Last Filed: 02/07/19 07:16> Orders Ordered: Discontinued Medications Albuterol (Ventolin) 2.5 mg INH NOW ONE Stop: 02/04/19 16:22 Last Admin: 02/04/19 16:23 Dose: 2.5 mg Documented by: YESSI Diphenhydramine HCl (Benadryl) 50 mg PO NOW ONE Stop: 02/04/19 17:54 Last Admin: 02/04/19 18:20 Dose: 50 mg Documented by: REECE Potassium Chloride (Potassium Chloride) 20 meq PO NOW ONE Stop: 02/04/19 19:40 Last Admin: 02/04/19 20:43 Dose: Not Given Documented by: TERA Vital Signs Vital signs: Vital Signs - 8 hr 02/04/19 16:18 02/04/19 16:23 Temperature 98.8 F Pulse Rate 91 H 99 H Respiratory Rate 20 14 Blood Pressure 134/86 Pulse Oximetry 100 100 MDM - Allergic Reaction <TONY Courtney - Last Filed: 02/04/19 20:44> Lab Data Result diagrams: 02/04/19 18:53 02/04/19 18:53 Labs: Lab Results 02/04/19 02/04/19 02/04/19 Range/Units 17:35 17:35 18:53 WBC 7.5 (4.5-11.0) X10^3/uL RBC 4.37 (4.0-5.2) X10^6/uL Hgb 14.2 (12.0-16.0) g/dL Hct 41.2 (36-46) % MCV 94.2 (80-100) fL MCH 32.5 (26-34) PG MCHC 34.5 (30-36) % RDW 12.2 (11.6-14.8) % Plt Count 227 (150-400) X10^3/uL Neut % (Auto) 65.3 (50-75) % Lymph % (Auto) 22.8 L (25-40) % [place] % (Auto) 9.5 (3-14) % Eos % (Auto) 2.1 (2-4) % Baso % (Auto) 0.3 (0-2) % Neut # (Auto) 4900 (0508-1567) /uL Lymph # (Auto) 1700 (6300-9876) /uL [place] # (Auto) 700 (0-900) /uL Eos # (Auto) 200 (0-450) /uL Baso # (Auto) 0 (0-100) /uL Sodium (137-145) mmol/L Potassium (3.4-5.1) mmol/L Chloride (98-107) mmol/L Carbon Dioxide (22-32) mmol/L BUN (7-17) mg/dL Creatinine (0.52-1.04) mg/dL Estimated GFR (>60) mL/min BUN/Creatinine Ratio (6-22) Glucose (70-100) mg/dL Calcium (8.4-10.2) mg/dL Magnesium (1.6-2.3) mg/dL Total Bilirubin (0.2-1.3) mg/dL AST (14-36) IU/L ALT (9-52) IU/L Alkaline Phosphatase (38-126) U/L Total Protein (6.3-8.2) g/dL Albumin (3.5-5.0) g/dL Globulin (1.7-4.1) g/dL Albumin/Globulin Ratio (1.0-2.8) Urine Color Yellow Urine Appearance Clear Urine pH 7.0 (4.5-8.0) Ur Specific [employer] <=1.005 (1.000-1.035) Urine Protein Negative (Negative) Urine Glucose (UA) Negative (Negative) g/dL Urine Ketones Negative (NEGATIVE) Urine Occult Blood Trace-lysed (Negative) Urine Nitrate Negative (Negative) Urine Bilirubin Negative (NEGATIVE) Urine Urobilinogen 0.2 (0.2) E.U./dL Ur Leukocyte Esterase Negative (NEGATIVE) Urine RBC None seen (0-5/HPF) Urine WBC None seen (0-5/HPF) Urine Bacteria None seen (None) Ur Culture Indicated? Cult not indicated Urine Opiates Screen Not Reportable POC Urine Buprenorphine Not Reportable U Morph 300 ng/mL cutoff Negative (Negative) Ur Oxycodone Screen Negative (Negative) Urine Methadone Screen Negative (Negative) Ur Barbiturates Screen Negative (Negative) U Tricyclic Antidepress Negative (Negative) Ur Phencyclidine Scrn Negative (Negative) Ur Amphetamines Screen Negative (Negative) U Methamphetamines Scrn Negative (Negative) Ur MDMA Scrn (Ecstasy) Negative (Negative) U Benzodiazepines Scrn Negative (Negative) Urine Cocaine Screen Negative (Negative) U Marijuana (THC) Screen Negative (Negative) 02/04/19 Range/Units 18:53 WBC (4.5-11.0) X10^3/uL RBC (4.0-5.2) X10^6/uL Hgb (12.0-16.0) g/dL Hct (36-46) % MCV (80-100) fL MCH (26-34) PG MCHC (30-36) % RDW (11.6-14.8) % Plt Count (150-400) X10^3/uL Neut % (Auto) (50-75) % Lymph % (Auto) (25-40) % [place] % (Auto) (3-14) % Eos % (Auto) (2-4) % Baso % (Auto) (0-2) % Neut # (Auto) (7782-8329) /uL Lymph # (Auto) (5099-7589) /uL [place] # (Auto) (0-900) /uL Eos # (Auto) (0-450) /uL Baso # (Auto) (0-100) /uL Sodium 141 (137-145) mmol/L Potassium 3.3 L (3.4-5.1) mmol/L Chloride 104 (98-107) mmol/L Carbon Dioxide 30 (22-32) mmol/L BUN 10 (7-17) mg/dL Creatinine 0.50 L (0.52-1.04) mg/dL Estimated GFR > 60.0 (>60) mL/min BUN/Creatinine Ratio 20.0 (6-22) Glucose 104 H (70-100) mg/dL Calcium 9.6 (8.4-10.2) mg/dL Magnesium 2.1 (1.6-2.3) mg/dL Total Bilirubin 0.7 (0.2-1.3) mg/dL AST 20 (14-36) IU/L ALT 21 (9-52) IU/L Alkaline Phosphatase 93 (38-126) U/L Total Protein 7.5 (6.3-8.2) g/dL Albumin 4.3 (3.5-5.0) g/dL Globulin 3.2 (1.7-4.1) g/dL Albumin/Globulin Ratio 1.3 (1.0-2.8) Urine Color Urine Appearance Urine pH (4.5-8.0) Ur Specific [employer] (1.000-1.035) Urine Protein (Negative) Urine Glucose (UA) (Negative) g/dL Urine Ketones (NEGATIVE) Urine Occult Blood (Negative) Urine Nitrate (Negative) Urine Bilirubin (NEGATIVE) Urine Urobilinogen (0.2) E.U./dL Ur Leukocyte Esterase (NEGATIVE) Urine RBC (0-5/HPF) Urine WBC (0-5/HPF) Urine Bacteria (None) Ur Culture Indicated? Urine Opiates Screen POC Urine Buprenorphine U Morph 300 ng/mL cutoff (Negative) Ur Oxycodone Screen (Negative) Urine Methadone Screen (Negative) Ur Barbiturates Screen (Negative) U Tricyclic Antidepress (Negative) Ur Phencyclidine Scrn (Negative) Ur Amphetamines Screen (Negative) U Methamphetamines Scrn (Negative) Ur MDMA Scrn (Ecstasy) (Negative) U Benzodiazepines Scrn (Negative) Urine Cocaine Screen (Negative) U Marijuana (THC) Screen (Negative) MDM Narrative Medical decision making narrative: The patient is a 48 year female who presents with a chief complaint of shortness of breath after exposure to chemicals several days ago. She was evaluated by respiratory therapist on arrival, and given an albuterol treatment. She states that she responded negatively to the albuterol, states that she had all of her muscle spasm and felt like her eyes were vibrating. Albuterol was ceased. On my exam, she complained to continue muscle spasms in her hands, which later alleviated. She is in no acute distress on my exam, and has a normal respiratory assessment. X-ray was taken to evaluate for any possible pneumonia, which came back with no acute findings. She is hemodynamically stable, oxygenating well. She was given Benadryl as she was concerned about an allergic reaction. She stated that she cannot use her fingers due to muscle spasms, was watched washing her hands in no acute distress using all of her fingers. However she had no hives, swelling of her lips face or tongue or any indications of acute anaphylaxis. The patient had several quest including testing her blood for an albuterol allergy. I discussed that this could not be done in the emergency department referred her out to primary care. I did note that her potassium was slightly on the low end of normal, but she was very concerned about taking potassium here due to her history of allergies. The patient appeared irritated that I cannot elaborate how many potatoes would be the equivalent of 10-20 mEq of potassium. The patient declined potassium in the emergency department. I did encourage her to follow up with primary care provider in the next few days. Discussed coming back to the emergency department for any acute concerns such as swelling of her lips face or tongue and/or acute shortness of breath. The patient was able to speak in full sentences throughout her stay in the emergency department. She was histrionic at times, not answering questions appropriately but rather elaborating on paint types that she was exposed to. I discussed throughout her stated I could not do anything to help with the specific kind of paint that she was exposed to, but rather encouraged her to wear a mask if she was going to be exposed to any chemicals in the future. She states she will not do this as it makes her eyeglasses fog up. I encouraged her to prioritize her respiratory status. Patient was discharged from the emergency department in no acute distress, hemodynamically stable oxygenating well. She was given instructions a nd return precautions as well as follow-up care. <Tiff Piña, - Last Filed: 02/07/19 07:16> Lab Data Labs: Lab Results 02/04/19 02/04/19 02/04/19 Range/Units 17:35 17:35 18:53 WBC 7.5 (4.5-11.0) X10^3/uL RBC 4.37 (4.0-5.2) X10^6/uL Hgb 14.2 (12.0-16.0) g/dL Hct 41.2 (36-46) % MCV 94.2 (80-100) fL MCH 32.5 (26-34) PG MCHC 34.5 (30-36) % RDW 12.2 (11.6-14.8) % Plt Count 227 (150-400) X10^3/uL Neut % (Auto) 65.3 (50-75) % Lymph % (Auto) 22.8 L (25-40) % [place] % (Auto) 9.5 (3-14) % Eos % (Auto) 2.1 (2-4) % Baso % (Auto) 0.3 (0-2) % Neut # (Auto) 4900 (2179-0048) /uL Lymph # (Auto) 1700 (1000-4974) /uL [place] # (Auto) 700 (0-900) /uL Eos # (Auto) 200 (0-450) /uL Baso # (Auto) 0 (0-100) /uL Sodium (137-145) mmol/L Potassium (3.4-5.1) mmol/L Chloride (98-107) mmol/L Carbon Dioxide (22-32) mmol/L BUN (7-17) mg/dL Creatinine (0.52-1.04) mg/dL Estimated GFR (>60) mL/min BUN/Creatinine Ratio (6-22) Glucose (70-100) mg/dL Calcium (8.4-10.2) mg/dL Magnesium (1.6-2.3) mg/dL Total Bilirubin (0.2-1.3) mg/dL AST (14-36) IU/L ALT (9-52) IU/L Alkaline Phosphatase (38-126) U/L Total Protein (6.3-8.2) g/dL Albumin (3.5-5.0) g/dL Globulin (1.7-4.1) g/dL Albumin/Globulin Ratio (1.0-2.8) Urine Color Yellow Urine Appearance Clear Urine pH 7.0 (4.5-8.0) Ur Specific [employer] <=1.005 (1.000-1.035) Urine Protein Negative (Negative) Urine Glucose (UA) Negative (Negative) g/dL Urine Ketones Negative (NEGATIVE) Urine Occult Blood Trace-lysed (Negative) Urine Nitrate Negative (Negative) Urine Bilirubin Negative (NEGATIVE) Urine Urobilinogen 0.2 (0.2) E.U./dL Ur Leukocyte Esterase Negative (NEGATIVE) Urine RBC None seen (0-5/HPF) Urine WBC None seen (0-5/HPF) Urine Bacteria None seen (None) Ur Culture Indicated? Cult not indicated Urine Opiates Screen Not Reportable POC Urine Buprenorphine Not Reportable U Morph 300 ng/mL cutoff Negative (Negative) Ur Oxycodone Screen Negative (Negative) Urine Methadone Screen Negative (Negative) Ur Barbiturates Screen Negative (Negative) U Tricyclic Antidepress Negative (Negative) Ur Phencyclidine Scrn Negative (Negative) Ur Amphetamines Screen Negative (Negative) U Methamphetamines Scrn Negative (Negative) Ur MDMA Scrn (Ecstasy) Negative (Negative) U Benzodiazepines Scrn Negative (Negative) Urine Cocaine Screen Negative (Negative) U Marijuana (THC) Screen Negative (Negative) 02/04/19 Range/Units 18:53 WBC (4.5-11.0) X10^3/uL RBC (4.0-5.2) X10^6/uL Hgb (12.0-16.0) g/dL Hct (36-46) % MCV (80-100) fL MCH (26-34) PG MCHC (30-36) % RDW (11.6-14.8) % Plt Count (150-400) X10^3/uL Neut % (Auto) (50-75) % Lymph % (Auto) (25-40) % [place] % (Auto) (3-14) % Eos % (Auto) (2-4) % Baso % (Auto) (0-2) % Neut # (Auto) (1231-5627) /uL Lymph # (Auto) (5482-5449) /uL [place] # (Auto) (0-900) /uL Eos # (Auto) (0-450) /uL Baso # (Auto) (0-100) /uL Sodium 141 (137-145) mmol/L Potassium 3.3 L (3.4-5.1) mmol/L Chloride 104 (98-107) mmol/L Carbon Dioxide 30 (22-32) mmol/L BUN 10 (7-17) mg/dL Creatinine 0.50 L (0.52-1.04) mg/dL Estimated GFR > 60.0 (>60) mL/min BUN/Creatinine Ratio 20.0 (6-22) Glucose 104 H (70-100) mg/dL Calcium 9.6 (8.4-10.2) mg/dL Magnesium 2.1 (1.6-2.3) mg/dL Total Bilirubin 0.7 (0.2-1.3) mg/dL AST 20 (14-36) IU/L ALT 21 (9-52) IU/L Alkaline Phosphatase 93 (38-126) U/L Total Protein 7.5 (6.3-8.2) g/dL Albumin 4.3 (3.5-5.0) g/dL Globulin 3.2 (1.7-4.1) g/dL Albumin/Globulin Ratio 1.3 (1.0-2.8) Urine Color Urine Appearance Urine pH (4.5-8.0) Ur Specific [employer] (1.000-1.035) Urine Protein (Negative) Urine Glucose (UA) (Negative) g/dL Urine Ketones (NEGATIVE) Urine Occult Blood (Negative) Urine Nitrate (Negative) Urine Bilirubin (NEGATIVE) Urine Urobilinogen (0.2) E.U./dL Ur Leukocyte Esterase (NEGATIVE) Urine RBC (0-5/HPF) Urine WBC (0-5/HPF) Urine Bacteria (None) Ur Culture Indicated? Urine Opiates Screen POC Urine Buprenorphine U Morph 300 ng/mL cutoff (Negative) Ur Oxycodone Screen (Negative) Urine Methadone Screen (Negative) Ur Barbiturates Screen (Negative) U Tricyclic Antidepress (Negative) Ur Phencyclidine Scrn (Negative) Ur Amphetamines Screen (Negative) U Methamphetamines Scrn (Negative) Ur MDMA Scrn (Ecstasy) (Negative) U Benzodiazepines Scrn (Negative) Urine Cocaine Screen (Negative) U Marijuana (THC) Screen (Negative) ECG Data Attestation: I personally reviewed and interpreted this ECG as follows: Prior ECG tracings: available for review Interpretation: Normal sinus rhythm rate 80 p.r. interval 152 QRS [address] changes no T-wave inversions Q-wave noted in lead 3 similar to previous EKG Discharge Plan Departure Patient Disposition: Home Clinical Impression: Breath shortness Discharge Date/Time: 02/04/19 20:42 Instructions: DI for Shortness of Breath, DI for Adverse Drug Reaction -- Allergic, DI for Reactive Airway Disease-Adult, How to Manage Shortness of Breath Activity Restrictions/Additional Instructions: Your labs came back mostly normal today. As discussed her potassium is on the low end of normal. Your x-ray has no signs of a pneumonia. Please follow up with her primary care provider as soon as possible. They can refer you out for allergy testing. You likely came in today because of shortness of breath related to chemical exposure. In the future, please wear mask if you're going to be exposed to chemicals. You had a negative reaction to albuterol, and thus I will not give you a prescription of that today. Regarding being tested for an albuterol allergy, I recommend you follow up with primary care provider. An medical device assembler might be able to assist with this. We did give you Benadryl to help alleviate any potential allergic reaction you might be having. Please monitor for any swelling of the lips tongue or throat. Please come back to the emergency department if you have any of the symptoms or any acute shortness of breath. Prescriptions: No Action vitamin E 400 unit Capsule 400 unit PO DAILY Qty: 0 RF: 0 cholecalciferol (vitamin D3) [Vitamin D3] 2,000 UNIT capsule 2,000 iu PO DAILY Qty: 0 RF: 0 omega 4-iku-bwl-fish oil [Fish Oil] 1,000 mg (120 mg-180 mg) Capsule 1 cap PO DAILY Qty: 0 RF: 0 mupirocin 2 % ointment 1 applic topical BID RF: 0 Referrals: Citlali Earl MD [Primary Care Provider] -
[2019-02-04 18:04] LABS: Ur Creatinine Normal (Normal); Ur Specific Gravity Normal (Normal); Urine pH Normal (Normal)
[2019-02-04 18:05] LABS: UR Morphine/Opiate cutoff 300 Negative (Negative); Urine Amphetamines Negative (Negative); Urine Barbiturates Negative (Negative); Urine Benzodiazepines Negative (Negative); Urine Cocaine Negative (Negative); Urine MDMA Negative (Negative); Urine Methamphetamines Negative (Negative); Urine Phencyclidine Negative (Negative); Urine Tetrahydrocannabinol Negative (Negative)
[2019-02-04 18:06] LABS: Urine Methadone Negative (Negative); Urine Oxycodone Negative (Negative); Urine Tricyclic Antidepressant Negative (Negative)
[2019-02-04 18:08] LABS: Culture Indicated Urine Cult Not Indicated
[2019-02-04] MEDS: diphenhydrAMINE 25 MG TABLET 50 MG PO (18:20)
--- NOTE | 2019-02-04 18:39 | PC.NURSE ---
pt requesting to have her pulse monitored stating that benadryl makes her HR slow. Pt seems anxious about dose of benadryl given. RN aware
[2019-02-04 19:01] LABS: Add Manual Diff / Slide Review NO; Basophils Absolute Auto 0 /uL (0-100); Basophils Percent Auto 0.3 % (0-2); Eosinophils Absolute Auto 200 /uL (0-450); Eosinophils Percent Auto 2.1 % (2-4); Hematocrit 41.2 % (36-46); Hemoglobin 14.2 g/dL (12.0-16.0); Lymphocytes Absolute Auto 1700 /uL (1100-4500); Lymphocytes Percent Auto 22.8 % (25-40); Mean Corpuscular HGB Conc 34.5 % (30-36); Mean Corpuscular Hemoglobin 32.5 PG (26-34); Mean Corpuscular Volume 94.2 fL (80-100); Monocytes Absolute Auto 700 /uL (0-900); Monocytes Percent Auto 9.5 % (3-14); Neutrophils Absolute Auto 4900 /uL (1500-7000); Neutrophils Percent Auto 65.3 % (50-75); Platelet Count 227 X10^3/uL (150-400); Red Blood Cell Count 4.37 X10^6/uL (4.0-5.2); Red Cell Distribution Width 12.2 % (11.6-14.8); White Blood Cell Count 7.5 X10^3/uL (4.5-11.0)
[2019-02-04 19:13] LABS: Alanine Aminotransferase 21 IU/L (9-52); Albumin 4.3 g/dL (3.5-5.0); Albumin Globulin Ratio 1.3 (1.0-2.8); Alkaline Phosphatase 93 U/L (38-126); Aspartate Aminotransferase 20 IU/L (14-36); Bilirubin Total 0.7 mg/dL (0.2-1.3); Blood Urea Nitrogen 10 mg/dL (7-17); Calcium 9.6 mg/dL (8.4-10.2); Carbon Dioxide 30 mmol/L (22-32); Chloride 104 mmol/L (98-107); Estimated Glomerular Filt Rate > 60.0 mL/min (>60); Globulin 3.2 g/dL (1.7-4.1); Glucose 104 mg/dL (70-100); HEMOLYSIS < 15 (0-50); Magnesium 2.1 mg/dL (1.6-2.3); Potassium 3.3 mmol/L (3.4-5.1); Sodium 141 mmol/L (137-145); Total Protein 7.5 g/dL (6.3-8.2)
--- NOTE | 2019-02-04 19:28 | PC.NURSE ---
pt requesting to get a blood test done to see if she had a reaction to the albuterol. Pt was informed that there is no blood test to tell whether or not she had an allergic reaction to the albuterol.
[2019-02-04 20:42] VITALS: BP 135/79; PULSE 83; RESP 16; O2SAT 100
== END 2019-02-04 20:42 | disposition home or self-care (01) ==
PROVIDERS: Emergency Provider Nurse Practitioner Family; PCP Orthopaedic Surgery Foot and Ankle Surgery
DX: R06.02 Shortness of breath (principal)
CPT/HCPCS: 36415; 71045; 80053; 80305; 81001; 83735; 85025; 93005; 94640; 99282; 99285; J7613

== ENCOUNTER 2019-06-26 01:03 | Inpatient (IN) | payer OTHER, MEDICAID, SELFPAY ==
[2019-06-26] VITALS (8 sets, daily range): BP systolic 125–150; BP diastolic 63–84; PULSE 68–98; RESP 16–19; TEMP 36.6–37.6; O2SAT 96–100; BMI 33.1
--- NOTE | 2019-06-26 01:04 | ED.FALL ---
HPI - Fall <Raquel Brice, DO - Last Filed: 07/01/19 07:14> General Chief Complaint: Extremity Injury, Lower Stated Complaint: Rt knee pain/ GLF Time Seen by Provider: 06/26/19 01:03 Source: patient, EMS and old records reviewed Mode of arrival: EMS Limitations: no limitations History of Present Illness HPI Narrative: 48-year-old female comes in with complaint of right knee pain. Patient states she had gone out to her deck this morning and to get some wood for her fire slipped on her deck falling onto her knee. Patient states that ?her kneecap was gone and ?. She has a lot of swelling and pain in the knee she denies any pain elsewhere in her lower extremity. She denies hitting her head, she denies any new neck or back pain. She has some chronic back issues and herniated disc but states not worse than normal. She has had prior orthopedic surgery on her wrist. She denies any numbness or tingling in her lower extremity. Patient denies any medical problems states she does not take any medications daily. She has multiple allergies to antibiotics and states she is also allergic to albuterol and very sensitive to pain medications. She had 2 mg of morphine EN route which was somewhat helpful but made her nauseated and she refuses any antinausea medicine and defers additional pain medication. Related Data Home Medications Medication Instructions Recorded Confirmed cholecalciferol (vitamin D3) 2,000 iu PO DAILY #0 04/11/11 06/26/19 [Vitamin D3] omega 3-zwa-qja-fish oil [Fish Oil] 1 cap PO DAILY #0 04/11/11 06/26/19 vitamin E 400 unit PO DAILY #0 04/11/11 06/26/19 mupirocin 1 applic TOPICAL BID 09/04/18 06/26/19 ascorbic acid (vitamin C) [Vitamin 1,000 mg PO DAILY 06/26/19 06/26/19 C] Previous Rx's Medication Instructions Recorded acetaminophen-codeine 1 tab PO Q6H PRN #20 tab 06/26/19 [Tylenol-Codeine #3] Allergies Allergy/AdvReac Type Severity Reaction Status Date / Time amoxicillin [AMOXICILLIN] Allergy Intermediate Verified 06/26/19 10:39 aspirin [ASPIRIN] Allergy Intermediate Verified 06/26/19 10:39 clindamycin [CLINDAMYCIN] Allergy Intermediate Verified 06/26/19 10:39 doxycycline [DOXYCYCLINE] Allergy Intermediate Verified 06/26/19 10:39 erythromycin base Allergy Intermediate Verified 06/26/19 10:39 [From ERYTHROCIN] Penicillins [PENICILLINS] Allergy Intermediate Verified 06/26/19 10:39 albuterol Allergy Unknown Verified 06/26/19 10:39 hydrocodone AdvReac Intermediate Verified 06/26/19 12:38 ibuprofen AdvReac Intermediate Verified 06/26/19 12:36 prednisone AdvReac Mild Verified 06/26/19 12:36 Review of Systems <Raquel Brice DO - Last Filed: 07/01/19 07:14> Review of Systems ROS Unobtainable: All systems reviewed & are unremarkable except as noted in HPI and below Patient History <Raquel Brice DO - Last Filed: 07/01/19 07:14> Medical History Cataract of left eye (Acute) Cataract of right eye (Acute) Cyst of bone of left hand (Acute) Fracture dislocation of right wrist (Acute) Fracture of left ankle (Acute) Fracture of left upper extremity (Acute) Fracture of right wrist with delayed healing (Acute) H/O chronic cholecystitis (Chronic) Healthy adult (Chronic) Herniated nucleus pulposus, L5-S1 (Chronic) No pertinent family history (Chronic) Scoliosis (Acute) Surgical History History of hysterectomy (Acute) No pertinent past surgical history (Chronic) Social History household members: none Smoking Status: Never smoker alcohol intake: current Smoking Status: Never smoker alcohol intake frequency: 3 or more drinks per day Substance Use Type: does not use Exam <Raquel Brice DO - Last Filed: 07/01/19 07:14> Narrative Exam Narrative: GEN: Patient appears in mother distress. HEAD: No evidence of trauma, no raccoon/Haynes sign. NECK: Nontender, painless range of motion, trachea midline Negative Nexus criteria, there is no mid line tenderness, distracting injury, altered mental status, neuro deficit, recent EtOH. EYES: PERRLA, EOMI ENT: External inspection normal, trachea is midline, TM's are normal no hemotypanum, Nares are clear, no septal hematoma, no dental or oral injury, airway is normal and with normal occlusion, No bony tenderness RESP: Chest is nontender and has symmetric movement, no ecchymosis, breath sounds are normal no crackles, wheezes or rales CVS: Heart sounds are normal, no murmur noted, No JVD. ABG/GI: Nontender, soft, normal bowel sounds, no distention, no organomegaly, pelvic rock is negative NEURO: Oriented AOx3, neuro is grossly intact, sensation and motor is normal all 4 extremities moving, cranial nerves II through XII are intact, GCS is 15 PSYCH: Normal mood and affect SKIN: Intact, warm and dry, no crepitus and without decubitus BACK: No CVA tenderness, no vertebral tenderness, no step-off's, no crepitus EXT: Right knee is significantly swollen in comparison to the left with ecchymosis there is some small abrasions but no laceration, patient has knee held straight she does not wish to flex the knee, patient has no bony tenderness of the lower leg otherwise ankle or foot, hips are nontender, no pedal edema, normal color and temperature, normal range of motion of extremities with normal tendon exam with exception of right knee, 2+ pulses in all four extremities. Patient has normal sensation throughout the right lower extremity. She is able to wiggle her toes, dorsiflex and plantar flex without issue. Initial Vital Signs Initial Vital Signs: Vital Signs Temperature 98.3 F 06/26/19 01:13 Pulse Rate 98 H 06/26/19 01:13 Respiratory Rate 18 06/26/19 01:13 Blood Pressure 150/84 H 06/26/19 01:13 Pulse Oximetry 99 06/26/19 01:13 <Da Smith, DO - Last Filed: 06/26/19 09:25> Initial Vital Signs Initial Vital Signs: Vital Signs Temperature 98.3 F 06/26/19 01:13 Pulse Rate 98 H 06/26/19 01:13 Respiratory Rate 18 06/26/19 01:13 Blood Pressure 150/84 H 06/26/19 01:13 Pulse Oximetry 99 06/26/19 01:13 Course <Raquel Brice DO - Last Filed: 07/01/19 07:14> Orders Ordered: Acetaminophen (Tylenol) 975 mg PO TID [facility] Last Admin: 06/30/19 20:45 Dose: Not Given Documented by: Admin: 06/30/19 14:06 Dose: Not Given Documented by: Admin: 06/30/19 10:37 Dose: Not Given Documented by: Admin: 06/29/19 22:25 Dose: Not Given Documented by: Admin: 06/29/19 13:49 Dose: Not Given Documented by: Admin: 06/29/19 10:12 Dose: Not Given Documented by: Admin: 06/28/19 21:39 Dose: 325 mg Documented by: JOSE RAMON Acetaminophen/Codeine Phosphate (Tylenol #3) 1 tab PO Q4HR PRN PRN Reason: Pain, Moderate (4-6) Last Admin: 06/30/19 14:06 Dose: 1 tab Documented by: Admin: 06/29/19 14:30 Dose: 1 tab Documented by: Admin: 06/29/19 10:12 Dose: 1 tab Documented by: Admin: 06/29/19 05:52 Dose: 1 tab Documented by: Admin: 06/29/19 01:12 Dose: 1 tab Documented by: Admin: 06/28/19 21:42 Dose: 1 tab Documented by: JOSE RAMON Docusate Sodium (Colace) 200 mg PO DAILY [facility] Last Admin: 06/30/19 10:40 Dose: 200 mg Documented by: SURINDER Enoxaparin Sodium (Lovenox) 40 mg SUBCUT DAILY [facility] Last Admin: 06/30/19 10:37 Dose: Not Given Documented by: Admin: 06/29/19 10:12 Dose: Not Given Documented by: MOISES Lactated Ringer's (Lactated Ringers) 1,000 mls @ 125 mls/hr IV CONT [facility] Last Infusion: 06/29/19 06:27 Dose: 0 mls/hr Documented by: Admin: 06/29/19 01:12 Dose: 125 mls/hr Documented by: Infusion: 06/29/19 01:12 Dose: 125 mls/hr Documented by: Admin: 06/28/19 19:48 Dose: 125 mls/hr Documented by: JOSE RAMON Metoclopramide HCl (Reglan) 10 mg IV Q6HR PRN PRN Reason: Nausea And Vomiting Morphine Sulfate (Morphine) 1 mg IV Q4HR PRN PRN Reason: Pain, Moderate (4-6) Last Admin: 06/29/19 17:16 Dose: 0.5 mg Documented by: Admin: 06/29/19 10:47 Dose: 0.75 mg Documented by: Admin: 06/29/19 03:30 Dose: 0.5 mg Documented by: JENNIFER Mupirocin (Bactroban Cream) 1 applic TOP BID [facility] Last Admin: 06/30/19 20:46 Dose: Not Given Documented by: Admin: 06/30/19 10:38 Dose: Not Given Documented by: Admin: 06/29/19 22:25 Dose: Not Given Documented by: Admin: 06/29/19 08:40 Dose: Not Given Documented by: Admin: 06/28/19 21:34 Dose: Not Given Documented by: JOSE RAMON Admin: 06/28/19 18:33 Dose: Not Given Documented by: JOSE RAMON Admin: 06/27/19 21:10 Dose: Not Given Documented by: Admin: 06/27/19 11:58 Dose: Not Given Documented by: Admin: 06/26/19 21:19 Dose: 1 dose Documented by: EDUARD Naloxone HCl (Narcan) 0.2 mg IV Q2MIN PRN PRN Reason: Opiate Reversal Stored In Pharmacy 1 each PO PRN PRN PRN Reason: PROTOCOL Ondansetron HCl (Zofran Odt) 4 mg PO Q4HR PRN PRN Reason: Nausea And Vomiting Sennosides (Senna) 17.2 mg PO BID [facility] Last Admin: 06/30/19 20:46 Dose: Not Given Documented by: TRINO Discontinued Medications Acetaminophen/Codeine Phosphate (Tylenol #3) 1 tab PO PACUNOW PRN PRN Reason: Mild or moderate pain Acetaminophen/Codeine Phosphate (Tylenol #3) 1 tab PO PACUNOW PRN PRN Reason: Mild or moderate pain Bupivacaine HCl/Epinephrine Bitart (Sensorcaine 0.5% W/ Epi (Pf)) 30 ml INJ NOW ONE Stop: 06/28/19 15:27 Last Admin: 06/28/19 15:26 Dose: 30 ml Documented by: AZUCENA Bupivacaine HCl/Epinephrine Bitart (Sensorcaine 0.5% W/ Epi (Pf)) 30 ml INJ NOW ONE Stop: 06/28/19 15:46 Last Admin: 06/28/19 18:34 Dose: Not Given Documented by: JOSE RAMON Fentanyl (Sublimaze) 0 mcg IV Q5M PRN PRN Reason: Pain, Moderate (4-6) Fentanyl (Sublimaze) 0 mcg IV Q5M PRN PRN Reason: Pain, Moderate (4-6) Vancomycin HCl (Vancomycin) 1,000 mg in 200 mls @ 200 mls/hr IV NOW ONE Stop: 06/28/19 15:05 Last Infusion: 06/28/19 15:33 Dose: 0 mls/hr Documented by: Admin: 06/28/19 14:18 Dose: 200 mls/hr Documented by: DANAE Lactated Ringer's (Lactated Ringers) 1,000 mls @ 42 mls/hr IV NOW ONE Stop: 06/29/19 14:05 Last Admin: 06/28/19 15:42 Dose: 42 mls/hr Documented by: Infusion: 06/28/19 15:42 Dose: 42 mls/hr Documented by: Admin: 06/28/19 14:18 Dose: 42 mls/hr Documented by: DANAE Vancomycin HCl (Vancomycin) 1,000 mg in 200 mls @ 200 mls/hr IV Q12H [facility] Stop: 06/29/19 02:59 Last Infusion: 06/29/19 03:00 Dose: 0 mls/hr Documented by: Admin: 06/29/19 01:12 Dose: 200 mls/hr Documented by: JENNIFER Morphine Sulfate (Morphine) 0 mg IV Q5M PRN PRN Reason: Pain, Mild (1-3) Morphine Sulfate (Morphine) 0 mg IV Q5M PRN PRN Reason: Pain, Moderate (4-6) Last Admin: 06/28/19 17:35 Dose: 2 mg Documented by: LISA Mupirocin (Bactroban Oint) 1 applic TOP BID [facility] Last Admin: 06/26/19 21:20 Dose: Not Given Documented by: KKNOTT Ondansetron HCl (Zofran) 4 mg IV NOW PRN PRN Reason: Nausea And Vomiting Ondansetron HCl (Zofran) 4 mg IV NOW PRN PRN Reason: Nausea And Vomiting Vital Signs Vital signs: Vital Signs - 8 hr 06/26/19 02:42 06/26/19 07:57 Pulse Rate 98 H 68 Respiratory Rate 18 19 Blood Pressure [Left Arm] 135/63 136/70 Pulse Oximetry 97 98 <Da Smith, DO - Last Filed: 06/26/19 09:25> Course Course Narrative: Patient received in sign-out from Dr. Giles. Of performed an independent history and physical and have no significant additions. In the interim orthopedics have called and asked that we keep patient NPO and she potentially be an add on surgical patient later today. She has been admitted to the orthopedic team Orders Ordered: Acetaminophen (Tylenol) 975 mg PO TID [facility] Last Admin: 06/30/19 20:45 Dose: Not Given Documented by: Admin: 06/30/19 14:06 Dose: Not Given Documented by: Admin: 06/30/19 10:37 Dose: Not Given Documented by: Admin: 06/29/19 22:25 Dose: Not Given Documented by: Admin: 06/29/19 13:49 Dose: Not Given Documented by: Admin: 06/29/19 10:12 Dose: Not Given Documented by: Admin: 06/28/19 21:39 Dose: 325 mg Documented by: JOSE RAMON Acetaminophen/Codeine Phosphate (Tylenol #3) 1 tab PO Q4HR PRN PRN Reason: Pain, Moderate (4-6) Last Admin: 06/30/19 14:06 Dose: 1 tab Documented by: Admin: 06/29/19 14:30 Dose: 1 tab Documented by: Admin: 06/29/19 10:12 Dose: 1 tab Documented by: Admin: 06/29/19 05:52 Dose: 1 tab Documented by: Admin: 06/29/19 01:12 Dose: 1 tab Documented by: Admin: 06/28/19 21:42 Dose: 1 tab Documented by: JOSE RAMON Docusate Sodium (Colace) 200 mg PO DAILY [facility] Last Admin: 06/30/19 10:40 Dose: 200 mg Documented by: SURINDER Enoxaparin Sodium (Lovenox) 40 mg SUBCUT DAILY [facility] Last Admin: 06/30/19 10:37 Dose: Not Given Documented by: Admin: 06/29/19 10:12 Dose: Not Given Documented by: MOISES Lactated Ringer's (Lactated Ringers) 1,000 mls @ 125 mls/hr IV CONT [facility] Last Infusion: 06/29/19 06:27 Dose: 0 mls/hr Documented by: Admin: 06/29/19 01:12 Dose: 125 mls/hr Documented by: Infusion: 06/29/19 01:12 Dose: 125 mls/hr Documented by: Admin: 06/28/19 19:48 Dose: 125 mls/hr Documented by: JOSE RAMON Metoclopramide HCl (Reglan) 10 mg IV Q6HR PRN PRN Reason: Nausea And Vomiting Morphine Sulfate (Morphine) 1 mg IV Q4HR PRN PRN Reason: Pain, Moderate (4-6) Last Admin: 06/29/19 17:16 Dose: 0.5 mg Documented by: Admin: 06/29/19 10:47 Dose: 0.75 mg Documented by: Admin: 06/29/19 03:30 Dose: 0.5 mg Documented by: JENNIFER Mupirocin (Bactroban Cream) 1 applic TOP BID [facility] Last Admin: 06/30/19 20:46 Dose: Not Given Documented by: Admin: 06/30/19 10:38 Dose: Not Given Documented by: Admin: 06/29/19 22:25 Dose: Not Given Documented by: Admin: 06/29/19 08:40 Dose: Not Given Documented by: Admin: 06/28/19 21:34 Dose: Not Given Documented by: JOSE RAMON Admin: 06/28/19 18:33 Dose: Not Given Documented by: JOSE RAMON Admin: 06/27/19 21:10 Dose: Not Given Documented by: Admin: 06/27/19 11:58 Dose: Not Given Documented by: Admin: 06/26/19 21:19 Dose: 1 dose Documented by: EDUARD Naloxone HCl (Narcan) 0.2 mg IV Q2MIN PRN PRN Reason: Opiate Reversal Stored In Pharmacy 1 each PO PRN PRN PRN Reason: PROTOCOL Ondansetron HCl (Zofran Odt) 4 mg PO Q4HR PRN PRN Reason: Nausea And Vomiting Sennosides (Senna) 17.2 mg PO BID [facility] Last Admin: 06/30/19 20:46 Dose: Not Given Documented by: TRINO Discontinued Medications Acetaminophen/Codeine Phosphate (Tylenol #3) 1 tab PO PACUNOW PRN PRN Reason: Mild or moderate pain Acetaminophen/Codeine Phosphate (Tylenol #3) 1 tab PO PACUNOW PRN PRN Reason: Mild or moderate pain Bupivacaine HCl/Epinephrine Bitart (Sensorcaine 0.5% W/ Epi (Pf)) 30 ml INJ NOW ONE Stop: 06/28/19 15:27 Last Admin: 06/28/19 15:26 Dose: 30 ml Documented by: AZUCENA Bupivacaine HCl/Epinephrine Bitart (Sensorcaine 0.5% W/ Epi (Pf)) 30 ml INJ NOW ONE Stop: 06/28/19 15:46 Last Admin: 06/28/19 18:34 Dose: Not Given Documented by: JOSE RAMON Fentanyl (Sublimaze) 0 mcg IV Q5M PRN PRN Reason: Pain, Moderate (4-6) Fentanyl (Sublimaze) 0 mcg IV Q5M PRN PRN Reason: Pain, Moderate (4-6) Vancomycin HCl (Vancomycin) 1,000 mg in 200 mls @ 200 mls/hr IV NOW ONE Stop: 06/28/19 15:05 Last Infusion: 06/28/19 15:33 Dose: 0 mls/hr Documented by: Admin: 06/28/19 14:18 Dose: 200 mls/hr Documented by: DANAE Lactated Ringer's (Lactated Ringers) 1,000 mls @ 42 mls/hr IV NOW ONE Stop: 06/29/19 14:05 Last Admin: 06/28/19 15:42 Dose: 42 mls/hr Documented by: Infusion: 06/28/19 15:42 Dose: 42 mls/hr Documented by: Admin: 06/28/19 14:18 Dose: 42 mls/hr Documented by: DANAE Vancomycin HCl (Vancomycin) 1,000 mg in 200 mls @ 200 mls/hr IV Q12H [facility] Stop: 06/29/19 02:59 Last Infusion: 06/29/19 03:00 Dose: 0 mls/hr Documented by: Admin: 06/29/19 01:12 Dose: 200 mls/hr Documented by: JENNIFER Morphine Sulfate (Morphine) 0 mg IV Q5M PRN PRN Reason: Pain, Mild (1-3) Morphine Sulfate (Morphine) 0 mg IV Q5M PRN PRN Reason: Pain, Moderate (4-6) Last Admin: 06/28/19 17:35 Dose: 2 mg Documented by: LISA Mupirocin (Bactroban Oint) 1 applic TOP BID [facility] Last Admin: 06/26/19 21:20 Dose: Not Given Documented by: EDUARD Ondansetron HCl (Zofran) 4 mg IV NOW PRN PRN Reason: Nausea And Vomiting Ondansetron HCl (Zofran) 4 mg IV NOW PRN PRN Reason: Nausea And Vomiting Vital Signs Vital signs: Vital Signs - 8 hr 06/26/19 02:42 06/26/19 07:57 Pulse Rate 98 H 68 Respiratory Rate 18 19 Blood Pressure [Left Arm] 135/63 136/70 Pulse Oximetry 97 98 MDM - Fall <Raquel Brice, DO - Last Filed: 07/01/19 07:14> Lab Data Result diagrams: 06/29/19 07:05 06/26/19 12:27 Imaging Data right knee xray: Attestation: I personally reviewed and interpreted this imaging study as follows: My Impression: patellar fracture, comminuted with superior displacement of most superior portion. No fracture of tib/fib or femur noted. [facility] Narrative Medical decision making narrative: X-ray of the knee shows a comminuted fracture of the right patella images were reviewed with Dr. Purdy. He reviewed images and recommends immobilizer and follow up with clinic preferably this week. Jorge has some restrictions regarding extensive allergic reactions for pain control. Patient able to get up to bedside commode at her requests with some assistance. Plan for PT eval in am to assist with final disposition. Patient signed out to Dr. Smith while this is pending. Patient has been using icepack and placed in immobilizer but defers any additional pain medications. Discharge Plan Departure Patient Disposition: Admitted As Inpatient Clinical Impression: Fall from ground level Fracture of patella, right, closed Qualifiers: Encounter type: initial encounter Fracture morphology: comminuted Fracture alignment: displaced Qualified Code(s): S82.041A - Displaced comminuted fracture of right patella, initial encounter for closed fracture Discharge Date/Time: 06/26/19 10:44 Instructions: DI for Patella Fracture Additional Instructions: Follow-up with Orthopedic surgery this week, call first thing in the morning for an appointment. I spoke with Dr. Purdy who has reviewed your images today. Take pain medication as prescribed, this medication can make you sleepy, do not drive, perform hazardous activities, make any major decisions while taking this medication. Splint Care: Keep splint clean and dry. Elevated affected body part to decrease swelling. OK to use ice pack on the affected body part. Use for 15-20 minutes each time, for 5-6x per day. If you develop worsening pain, numbness, tingling, discoloration of the affected body part, loosen the immobilizer, and either see your doctor for an urgent re-assessment, or return to the Emergency Department. Return to the Emergency Department for any new or worsening symptoms. Referrals: Citlali Earl MD [Primary Care Provider] - Jose Purdy MD [Physician] - Admit Date/Time: 06/26/19 09:18 Admit Provider: Jose Purdy
--- NOTE | 2019-06-26 01:09 | DI.RAD.S_ITS ---
PROCEDURE: XR KNEE RT 3V INDICATIONS: right knee pain, swelling, post fall TECHNIQUE: 3 views of the knee were acquired. COMPARISON: [facility], , KNEE 3V RIGHT, 03/03/2011, 19:13. FINDINGS: Bones: Comminuted, markedly distracted patellar fracture. No other fractures or dislocations seen. No suspicious bony lesions. Soft tissues: Extensive anterior soft tissue swelling. No suspicious soft tissue calcifications. IMPRESSION: Comminuted, markedly distracted patellar fracture. Dictated by: Jasper Pompa M.D. on 06/26/2019 at 8:28 Approved by: Jasper Pompa M.D. on 06/26/2019 at 8:29
--- NOTE | 2019-06-26 03:52 | PC.NURSE ---
900 ml ns wasted from field.
--- NOTE | 2019-06-26 04:37 | PC.NURSE ---
Will be allowed to sleep,awaiting physical therapy evaluation later today.Has not slept tonight.Ice to right knee with elevation,will remove in 15 minutes.
--- NOTE | 2019-06-26 09:13 | PT-IP ANOTE ---
This PT went to ER for PT assessment. RN spoke to ortho surgeon that pt is going to have surgery today d/t her extent of the injury. Will attempt to eval after surgery.
--- NOTE | 2019-06-26 10:04 | PC.NURSE ---
pt was informed earlier to not complete her breakfast or drink anymore liquid in preparation for OR this afternoon.
[2019-06-26 12:49] LABS: Add Manual Diff / Slide Review NO; Basophils Absolute Auto 0 /uL (0-100); Basophils Percent Auto 0.3 % (0-2); Eosinophils Absolute Auto 0 /uL (0-450); Eosinophils Percent Auto 0.5 % (2-4); Hemoglobin 13.3 g/dL (12.0-16.0); Lymphocytes Absolute Auto 1700 /uL (1100-4500); Lymphocytes Percent Auto 20.9 % (25-40); Mean Corpuscular HGB Conc 34.9 % (30-36); Mean Corpuscular Hemoglobin 33.1 PG (26-34); Mean Corpuscular Volume 94.9 fL (80-100); Monocytes Absolute Auto 800 /uL (0-900); Neutrophils Absolute Auto 5500 /uL (1500-7000); Neutrophils Percent Auto 68.3 % (50-75); Platelet Count 215 X10^3/uL (150-400); Red Blood Cell Count 4.01 X10^6/uL (4.0-5.2); Red Cell Distribution Width 12.2 % (11.6-14.8); White Blood Cell Count 8.1 X10^3/uL (4.5-11.0)
[2019-06-26 13:01] LABS: Blood Urea Nitrogen 10 mg/dL (7-17); Calcium 9.3 mg/dL (8.4-10.2); Carbon Dioxide 29 mmol/L (22-32); Chloride 105 mmol/L (98-107); Estimated Glomerular Filt Rate > 60.0 mL/min (>60); Glucose 101 mg/dL (70-100); HEMOLYSIS 19 (0-50); Potassium 4.4 mmol/L (3.4-5.1); Sodium 140 mmol/L (137-145)
[2019-06-26] MEDS: MUPIROCIN CREAM 15 GM 1 APPLIC TOP (21:19)
--- NOTE | 2019-06-26 21:42 | PC.NURSE ---
PATIENTS HL HAD SMALL AMOUNT OF BLOOD AROUND SITE,PATIENT REQUESTS IV TO BE REMOVED AND NOT RESTARTED,STATES MAY NOT BE HERE TOMORROW FOR SURGERY. UPDATED ON PATIENTS REQUEST TO HAVE SECOND OPINION ABOUT SURGERY. PATIENT STATES SHE WILL CALL OTHER IN AM.
[2019-06-27 04:00] VITALS: BP 125/77; PULSE 93; RESP 18; TEMP 37.3; O2SAT 97
[2019-06-27 10:07] VITALS: BP 137/85; PULSE 83; RESP 16; TEMP 36.6; O2SAT 97
--- NOTE | 2019-06-27 14:27 | CM.IDA ---
Initial DCP Assessment Note: Pt is a 48 yo female, resident of [place]. Pt presents w/right knee pain and found to have a right patella fracture PCP: Citlali Earl Payer: [employer] Reviewed chart, surgery recommended by Ortho team today and discussion being held w/pt this afternoon as she is worried about possible allergic reaction to titanium devices used for surgical repair. Pt suffers from many allergies per pt report This LAB ASSOCIATE met w/pt and Ortho PA Adama, later joined by Dr Diallo. Dr Diallo and Adama explain they cannot accommodate pt's request for allergy testing ( tests allergy to metals) because this test could take weeks. They strongly encouraged pt to consider surgery today d/t the nature of her fracture and increased risk of permanent and irreparable damage if she waits to get surgery for weeks. Pt was presented w/two options: -Have surgery on the knee today as recommended by the Ortho team or -DC home w/outpt f/u for allergy testing and to seek a facility that provides ceramic parts as pt requesting Initially, pt very resistant to surgery, she is fearful about allergic reaction based on prior titanium plate in her right wrist, she requests a muscle test wherein IH/Orthopedic hardware is placed on her belly and levels of resistance/weakness tested. Pt also states she cannot DC home because she lives alone and cannot get to any outpt appts on her own at this time. This LAB ASSOCIATE had to leave the room while Ortho team continued to urge pt to consider surgery; later updated by JANET Jeffery that pt decided to get surgery This LAB ASSOCIATE following closely for assessment of DC needs and coordination of the safest plan available to pt s/p surgery. If pt requires SNF, auth will need to go through [employer]. Philly Santos, LIANA
--- NOTE | 2019-06-27 14:42 | PC.NURSE ---
Ortho: Pt expressing many concerns about her surgery, issues involve allergies with any part of a prosthesis which might be placed, wondering if she should get a second opinion. Not wanting to get any pain medications but she is hurting more and wanting an order for T3. MARIUM Romero has been in several times to see pt as well as Dr. Diallo. Issues have been explored and options given. Pt decided to have surgery vs doing allergy testing and getting a second opinion. She is npo at this time. T3 were asked for but not ordered due to npo status and pt's refusal to have another IV started at this time. (IV came out last anne) Discussed pt being out of her brace today with PT, he will clarify weight bear status w/DR. Ruiz w/poc.
[2019-06-27 15:20] VITALS: BP 140/74; PULSE 71; RESP 16; TEMP 37.1; O2SAT 100
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
[2019-06-27 19:41] VITALS: BP 128/68; PULSE 87; RESP 16; TEMP 37.4; O2SAT 100
[2019-06-28] VITALS (21 sets, daily range): BP systolic 124–164; BP diastolic 74–111; PULSE 66–100; RESP 11–20; TEMP 36.3–37.6; O2SAT 12–100; BMI 33.1
--- NOTE | 2019-06-28 00:41 | PC.NURSE ---
METHODS ANALYST note: at start of shift patient asked for a refill of her water and other snacks before she goes NPO at midnight. I got her water, yogurt, and crackers. Patient asked me to check on her in fifteen minutes or so to get her more water I'm so dehydrated. This is the only water I've had all day. I said I would try. I came back 15 minutes later, with another glass of water- water glass was half full still. Patient requested more water. I left room and before I was down the villa patient's call light was on. Patient wanted to get up to go to the bathroom. I suggested the [facility] [place]. Patient refused stating she was going to have a BM. I asked if she could wait a few minutes while I found extra staff to help us get her to the BR. She said she could. As I was leaving, asking Zay Rawls for help, patient called. I walked in and saw patient was trying to move to the the side of the bed. I just can't hold it. Patient took 2 person, the wheelchair, the gait belt, and multiple pillows in the bathroom to get to the toilet. Patient used staff to hold onto while trying to get to the toilet despite staff saying let's not do that, let's use the equipment. Patient responded with well jeepers it's just instinct. While on the toilet patient talked to staff about wanting to get a shower before surgery. When I explained how that might not be safe, how with her injury and history of fall, the shower wouldn't be the safest option. Patient pushed the issue saying I wouldn't ask if I didn't think it was safe. I only slipped on ice. I said I would talk to her nurse. To get back in bed, patient had to brush her teeth, standing at sink, resting her arm on staff, despite staff saying let's use the equipment. Patient got back into bed, using staff to hold her- despite staff reminding her to use the equipment. After I got her covered up with all the pillows in place patient pulled off the covers and said something's not right and needed her bed reorganized. Bed alarm on, call light at . Spent 40 minutes in room getting patient ready for the night. Patient has called twice since then to get comfortable in bed. Nurse aware.
--- NOTE | 2019-06-28 06:09 | PC.NURSE ---
Pt up to BSC x4 overnight. Pt is 2 person assist. Uses knee immobilizer, and gait belt on foot for foot. 2x2 gauze to top of right knee, no drainage noted. Pt has order for bedrest, declines use of bedpan and requests to use BSC only. Education provided regarding risk of fall with fractured patella and activity restrictions. Pt NPO overnight for planned surgery today at 1400. Pt has no IV access, provider aware. Pt grimace when up to BSC. Education regarding pain scale, pt stated it just hurts. No pain meds currently ordered and pt stated pain overnight tolerable. CIWA q8hr with score of 0. Pt requests SW consult as she would like an air bed for her disc and needs an ambulance ride home and be stretched into my house. Requested NISHA call her friend Kayleigh Vieyra at [phone] to arrange plans. Will report to next shift to please contact NISHA.
--- NOTE | 2019-06-28 13:59 | CM.DPNOTE ---
Spoke w/JANET Jeffery this morning; is pt still scheduled for surgery? JANET Jeffery explains pt is on the schedule for 1400, no changes at this time. According to RN, pt would like to see a professor of social work to discuss arranging a BLS for transport home/assist into home and getting an air bed (?) This [facility]LL[facility] P[employer]ER explained to RN that pt may not meet criteria to have BLS ride covered by Medicaid, and Medicaid transport does not cover BLS home... but [facility]ER team will plan to assess for DC needs after pt's surgery. RULA
[2019-06-28] MEDS: VANCOMYCIN 1,000 MG/200 ML PIGGYBACK 200 MG IV (14:18)
[2019-06-28] MEDS: LACTATED RINGERS 1,000 ML 42 ML IV ×2 (14:18→15:42)
--- NOTE | 2019-06-28 14:30 | PM.PREOP ---
Pre-operative Note Interval Note History & Physical reviewed/Exam performed by Physician: Yes Changes to H&P: No H&P completed within 30 days and has changed as indicated here:: Plan for Right patella ORIF vs. partial patellectomy
--- NOTE | 2019-06-28 15:14 | SUR.OPER ---
Supine on padded OR bed, head on pillow, arms secured on padded arm boards at <90 degrees abduction, legs uncrossed, safety belt at waist, tape over blanket over lower left leg, right leg draped free.
[2019-06-28] MEDS: BUPIVACAINE 0.5% W/ EPI (PF) 10 ML VIAL 30 ML INJ (15:26)
--- NOTE | 2019-06-28 16:51 | PM.OP.1 ---
Operative Date/Time/Diagnoses Date of procedure: 06/28/19 Time of procedure: 16:51 Pre-op diagnosis: Comminuted right patella fracture with disruption of the extensor mechanism Post-op diagnosis: same Procedure & Clinicians Procedure: ORIF R patella Same procedure as scheduled: Yes Indications: Comminuted right patella fracture with extensor mechanism disruption Surgeon: Jose Purdy Infantry Indirect Fire Crewmember: Adama Marx Anesthesia Type: General Operative Notes Findings: Displaced comminuted patella fracture with extensor mechanism disruption Closure Type: primary Specimen(s): none sent Prosthetic devices, grafts, tissues, transplants, or devices: 4.0 cannulated screws (26 and 36mm) 18 gauge wire Estimated Blood Loss (mL): 100 Blood products transfused: none Procedure in detail: Patient was met in the preop hold area with signs of surgery were marked and the Gerald questions were answered. Patient was then brought back to operating room where she was induced under general anesthesia. She was then transferred on the operating room table. The right lower extremity was then prepped and draped in normal sterile fashion. A surgical time-out was performed verifying side and site of surgery as well as the name of the patient. A 10 cm long incision over the anterior aspect of the right knee in line with the long axis of the extremity was made using a 10. Blade. Sharp dissection was carried down to the extensor retinaculum which was found to be disrupted. Large amount hematoma was then evacuated. Some small bony and cartilaginous fragments were removed from the knee joint itself. The fracture site and joint was thoroughly irrigated with normal saline. The retinaculum at the fracture site was carefully peeled superiorly and inferiorly away from the fracture edge 2 bone reduction forceps were used 1 on the medial 1 lateral side to concurrently reduce the fracture. Fluoroscopic views were then taken to verify reduction of the patella particularly at the articular surface. A threaded tip K-wire was then passed from the inferior pole to superior pole on the lateral side and then on the medial side. Again fluoroscopic views were taken to verify that the wires were parallel as well as away from the articular surface. These were then overdrilled with a 2.7 mm cannulated drill and measured for depth with great care taken to leave the screw short so that a tension band construct through the screws could be utilized. A 26 mm 4.0 partially-threaded cannulated screw was then placed through the lateral drill hole over the guidewire. This was the same procedure was then repeated for the medial screw which was measured to be 36 mm. Fluoroscopic guidance was used to verify that the threads past the fracture site but did not pass through the superior pole of the patella. An 18 gauge wire was then passed through the cannulated screws in a tension band construct and tightened. Interrupted FiberWire sutures were then used to repair the extensor retinaculum. This was then oversewn with a running Ethibond suture. Two 0 Vicryl was then used in subcutaneous layer followed by strata Fix, Dermabond, and Aquacel. Hinged knee brace locked in full extension was then placed. Complications: none Post-operative Condition: stable Disposition: PACU Plan for aftercare: Patient is weight-bearing as tolerated in a hinged knee brace locked in full extension. She should wear the knee brace at all times except for hygiene. She can come out of the knee brace and work with physical therapy on passive range of motion from 0-30 degrees of flexion. She also work on isometric quadriceps hamstring exercises.
[2019-06-28] MEDS: MORPHINE 10 MG/ML INJ IV (17:35)
[2019-06-28] MEDS: LACTATED RINGERS 1,000 ML 125 ML IV (19:48)
[2019-06-28] MEDS: ACETAMINOPHEN 325 MG TABLET 975 MG PO (21:39)
[2019-06-28] MEDS: CODEINE/ACETAMINOPHEN 30/300 TABLET 1 TAB PO (21:42)
[2019-06-28 21:59] LABS: Hematocrit 39.8 % (36-46); Hemoglobin 13.6 g/dL (12.0-16.0)
[2019-06-29] VITALS (7 sets, daily range): BP systolic 122–140; BP diastolic 68–77; PULSE 61–93; RESP 16–20; TEMP 35.9–37.7; O2SAT 100
[2019-06-29] MEDS: LACTATED RINGERS 1,000 ML 125 ML IV (01:12)
[2019-06-29] MEDS: CODEINE/ACETAMINOPHEN 30/300 TABLET 1 TAB PO ×4 (01:12→14:30)
[2019-06-29] MEDS: VANCOMYCIN 1,000 MG/200 ML PIGGYBACK 200 MG IV (01:12)
[2019-06-29] MEDS: MORPHINE 2 MG/ML INJ 1 MG IV ×3 (03:30→17:16)
--- NOTE | 2019-06-29 06:29 | PC.NURSE ---
Pt VSS stable overnight. Pt rates pain at right knee 7-9/10. Pt hesitant to take pain meds as I don't know what they will do to me. Encouraged pt to take PRN pains meds as ordered as she has tolerated T3 and morphine in the past. Pt agreed to 0.5 mg of IV morphine once, pt found relief with this as she appeared to sleep for 1hr. Upon wakening pt rates pain 8/10. Offered more morphine per order, pt declined. Pt requested T3 be given. Upon reassessment pt pain decreased from 8/10 to 7/10. Pt did not want further pain medication. Ice packs provided and frequent repositioning done. Pt unable to find position that works best. Reinforced that controlled pain is more effective than pain that needs to be caught up and taking pain medication (when needed) on doctor ordered time parameters is most effective. CMS intact to RLE. Aquacell dressing with 1inch x 0.25inch shadow drainage to middle. Knee with pink/purple/blue bruising. Mild edema to site. Pt finds knee immobilizer cumbersome and placement of brace challenging as the metal parts come into contact with the top of her knee. Using towels to prop knee in additon to brace worked best overnight. Pt expected to dc to home today. CM working to address pt needs ie would like hospital bed placed in home before DC. Allowed time to ask questions, express frustration with fracture, discuss safe transfers, use of pain med at home.
[2019-06-29 07:22] LABS: Hematocrit 36.7 % (36-46); Hemoglobin 12.9 g/dL (12.0-16.0); Mean Corpuscular HGB Conc 35.2 % (30-36); Mean Corpuscular Hemoglobin 33.5 PG (26-34); Mean Corpuscular Volume 95.2 fL (80-100); Platelet Count 234 X10^3/uL (150-400); Red Blood Cell Count 3.85 X10^6/uL (4.0-5.2); White Blood Cell Count 13.5 X10^3/uL (4.5-11.0)
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
--- NOTE | 2019-06-29 13:57 | PC.NURSE ---
Patient alert and oriented this shift. Right leg in locked knee brace whenever moving, sometimes off in bed for patient comfort. Dressing CDI, CMS largely intact, though patient does state she has a big of altered sensation to right foot. Able to feel touch, but states that it feels somewhat different than normal, findings discussed with ortho PA who saw patient at bedside. Care is ongoing.
--- NOTE | 2019-06-29 15:05 | DI.RAD.S_ITS ---
PROCEDURE: XR HIP W PEL IF DONE RT 2V INDICATIONS: FALL TECHNIQUE: 2 views of the hip were acquired. COMPARISON: None. FINDINGS: Bones: No displaced fractures or dislocations of the right proximal femur/hip are appreciated. No suspicious osseous lesions are evident. There may be early degenerative changes of the right hip. Soft tissues: No suspicious soft tissue calcifications or masses. IMPRESSION: No displaced hip fractures. If there is high clinical concern for an acute fracture, please consider MRI for further evaluation. Dictated by: Aleksander Acosta M.D. on 06/29/2019 at 15:22 Approved by: Aleksander Acosta M.D. on 06/29/2019 at 15:23
--- NOTE | 2019-06-29 16:49 | PM.PN.1 ---
Subjective Subjective Date Patient Seen: 06/29/19 Interval history: 48 year old female who is POD# 1 s/p ORIF of right patella with Dr. Purdy. Pain is moderate to severe. Poor control due to patient having allergy to many medications and being unwilling to medications that are new to her due to significant allergies in the past. Also complaining of right sided groin pain which she started to notice today. Immediately post op she was placed in a knee hinge brace which was unable to tolerate, then transitioned to a knee immobilizer which she is not tolerating. Denies any chest pain or shortness of breath, nausea, vomiting. Exam Vital Signs (past 8 hours): - 06/29/19 10:00 06/29/19 10:41 06/29/19 14:11 Temperature 99.8 F H 99.6 F Pulse Rate 78 61 Respiratory Rate 16 16 Blood Pressure 137/76 140/75 Pulse Oximetry 100 100 100 06/29/19 16:41 Temperature 97.9 F Pulse Rate 89 Respiratory Rate 18 Blood Pressure 122/76 Pulse Oximetry 100 Oxygen Delivery Method Room Air Oxygen Flow Rate 0 Narrative Exam Narrative: 48 year old female resting in bed. Alert and oriented in moderate discomfort. Patient not wearing knee immobilizer. Aquacel dressing in place, minor bubbling along the side which concerns patient so this removed to reveal an intact incision without drainage. New Aquacel applied. Patient able to flex and extend the ankle. Calves soft and compressible. Unable to perform hip exam due to patient discomfort. Objective Labs Result Diagrams: 06/29/19 07:05 06/26/19 12:27 Labs: Laboratory Results - last 24 hr 06/28/19 06/29/19 21:10 07:05 WBC 13.5 H RBC 3.85 L Hgb 13.6 12.9 Hct 39.8 36.7 MCV 95.2 MCH 33.5 MCHC 35.2 RDW 12.0 Plt Count 234 Assessment & Plan Assessment & Plan narrative: Patient progressing as expected post operatively. No changes to present pain management as she is unwilling to try new medications due to history of allergy. She was placed back into knee hinge brace and this was adjusted by PT as well. Hip xray due to complaints of groin pain was negative for obvious fracture. Will continue to monitor this and consider further imaging if this worsens. SCDs and Lovenox for DVT prophylaxis as patient has allergy to ASA. Per Dr. Purdy: Patient is weight-bearing as tolerated in a hinged knee brace locked in full extension. She should wear the knee brace at all times except for hygiene. She can come out of the knee brace and work with physical therapy on passive range of motion from 0-30 degrees of flexion. She also work on isometric quadriceps hamstring exercises. Will likely discharge to SNF due to poor mobility postoperatively.
--- NOTE | 2019-06-29 16:52 | PT.IPTN ---
Current Diagnoses Displaced comminuted fracture of right patella, initial encounter for closed fracture (06/26/19) Surgery Performed Operation Date: 06/28/19 13:15 Actual Procedures p ORIF Patella Fracture(Right) - Jose Purdy MD Physical Therapy Treatment Note M2 PT-IP Current Condition Start: 06/29/19 14:07 Freq: NEEDED Status: Active Protocol: Document 06/29/19 12:09 AB (Rec: 06/29/19 14:44 AB [id number]) Physical Therapy Current Condition Current Condition Evaluation Date 06/29/19 Treatment Diagnosis R displaced comminuted patellar fx s/p ORIF; difficulty in walking Onset Date 06/26/2019 Precautions Brace R knee hinged immobilizer locked in 0 deg flexion/ext. Other Precautions per Dr. Purdy's plan for aftercare note: Patient is weight-bearing as tolerated in a hinged knee brace locked in full extension. She should wear the knee brace at all times except for hygiene. She can come out of the knee brace and work with physical therapy on passive range of motion from 0-30 degrees of flexion. She also work on isometric quadriceps hamstring exercises. Weight Bearing Status Weight Bearing Status Weight Bear as Tolerated Allowed Weight Bearing Amount (enter % WBAT RLE with hinged braced or #) (%) locked in 0 deg extension M3 PT-IP Subjective Start: 06/29/19 14:07 Freq: NEEDED Status: Active Protocol: Document 06/29/19 15:40 LILIANA (Rec: 06/29/19 16:52 LJ [email or web address]) Subjective Physical Therapy Visit Type Type Treatment Note Visit Start Time 15:40 Visit Stop Time 16:06 Total Visit Minutes 26 Notes Therapy began at 1540 and was interrupted twice for an xray and a friend visiting Physical Therapy Visit Comments Patient Comments Pt refusing to get out of bed and frequently wincing and crying out in pain with c/o hip pain and back pain. She was able to carry on a conversation with the materials technician and friend as well as the CUSTODIAN during treatment when distracted. Therapy Pain Assessment Pain When Pain Assessed At Rest Pain Present Pain Present Pain Reported M4 PT-IP Mobility and Gait Start: 06/29/19 14:07 Freq: NEEDED Status: Active Protocol: Document 06/29/19 15:40 LJ (Rec: 06/29/19 16:52 LJ [email or web address]) PT-Bed Mobility Assessment Rolling Type of Rolling Bilateral Supine to Sit Supine to Sit Minimal Assistance,Bedrails PT-Transfer Assessment Comments Mobility Comments Pt refused attempt to sit on edge of bed. States she needs morphine before she can do anything like that. She is able to roll using bedrails and UEs and able to lift LLE to reposition slightly but does not follow directions. She raised and lowered head of bed several times during treatment while CUSTODIAN was attempting to don brace. Required direct instruction to stop moving and allow the brace to be placed on her leg. Gait Assessment Comments Gait Comments refused M5 PT-IP Objective Assessments Start: 06/29/19 14:07 Freq: NEEDED Status: Active Protocol: Document 06/29/19 12:09 AB (Rec: 06/29/19 14:44 AB [id number]) Orientation Orientation/Cognition Level of Alertness Alert Orientation Name,Place,Situation Safety Awareness Decreased Safety Awareness Gross Range of Motion Lower Extremity ROM Assessment Right Impaired Impairments R knee on immobilizer and ROM not tested Strength Lower Extremity Strength Assessment Right Impaired Hip 2-/5 Knee 2-/5 Coordination Assessment Gross Coordination Gross Coordination WNL Muscle Tone Muscle Tone WNL Yes M6 PT-IP Treatment Start: 06/29/19 14:07 Freq: NEEDED Status: Active Protocol: Document 06/29/19 15:40 LILIANA (Rec: 06/29/19 16:52 [email or web address]) Physical Therapy Treatment Education Education Provided Precautions,Weight Bearing Status,Safety Other Treatments Other Treatment Performed PROM flexion of RLE with brace locked at 30 degrees x 8 M7 PT-IP Assessment and Plan Start: 06/29/19 14:07 Freq: NEEDED Status: Active Protocol: Document 06/29/19 15:40 LILIANA (Rec: 06/29/19 16:52 [email or web address]) PT Summary Assessment and Plan Potential Rehabilitation Potential Fair Status of Condition at Evaluation Evolving Summary Impairments Pain,ROM,Strength,Balance, Coordination,Sensation,Tone, Cognition,Bed Mobility, Transfers,Gait,Activity Tolerance Assessment Summary pt requiring SBA to max A with mobility in bed. Pt asking for morphine many times. Grimmacing and crying out in pain then joking around a few seconds later. She was unwilling to do anything other than PROM and reposition in the bed. She was left with nursing and her friend in the room. Goals Bed Mobility Goal Minimal Assistance Transfer Goal Minimal Assistance,Front Wheeled Walker Gait Goal Minimal Assistance,Front Wheel Walker Gait Distance 50 Other Goals up/down 3 steps 1 rail min A and cues Days to Meet Goals 5 Frequency of Treatment Frequency Of Treatment Twice a Day Treatment Plan Physical Therapy Treatment Plan Bed Mobility Training,Transfer Training,Gait Training, Therapeutic Exercise,Balance Retraining,Post Op Education, Discharge Planning,Hot or Cold Pack,Neuromuscular Re-ed, Coordination Retraining,Manual Therapy Other Recommendations and Next Treatment bed mobility, transfers, Focus ambulation Recommendations To Nursing Amount of Assist Needed 2 Person Assist Discharge Recommendations Transportation Needs at Discharge Wheelchair/Cabulance
--- NOTE | 2019-06-29 23:42 | PC.NURSE ---
VSS throughout shift. Pt. very hesitant to bear weight, very nervous about mobilizing. Was able to stand, pivot, transfer, with use of 1-2 person assist, FWW, gait belt around right ankle, and particular positioning of pillows. Becomes anxious but is more or less able to be redirected. Encouraged to use IS. Declined several ordered meds. No post-op BM; relayed to NOC nurse for orders in am.
--- NOTE | 2019-06-30 02:48 | PC.NURSE ---
NOC shift. pt AO and receptive to care. pt displaying high anxiety. Brace to right knee with Aquacel, scattered bruising, and non-pitting edema. Reporting 6/10 pain being managed with ice packs and repositioning. SCE to LLE. IS being utilized when reminded. pt refused evening lovenox. pt concerned about possible constipation and asking for provider to add bowel regimen to her medication list. Also asking about hip xray impression.
[2019-06-30 05:00] VITALS: BP 140/80; PULSE 71; RESP 19; TEMP 37.4; O2SAT 99
[2019-06-30 09:20] VITALS: BP 131/68; PULSE 69; RESP 16; TEMP 36.7; O2SAT 98
--- NOTE | 2019-06-30 10:08 | PM.PN.1 ---
Subjective Subjective Date Patient Seen: 06/30/19 Time Patient Seen: 10:09 Interval history: Julia is somewhat more mobile today but she requires a 1-2 person assist in order to get out of the bed to a chair. She notes that she has chronic severe immobility problems associated with the chronic herniated disc in her low back. She also has a history of a right wrist fracture with chronic right wrist stiffness which impairs her mobility. She has a history of a left ankle fracture with a delayed union which was felt to be partially related to a low vitamin D. her right knee continues to be painful to the extent that she is unable to do a straight leg raise and is unable to assist with lifting her right leg. She also notes some right groin pain and an x-ray was taken yesterday. She has not had a bowel movement yet. Exam Vital Signs (past 8 hours): - 06/30/19 05:00 Temperature 99.3 F Pulse Rate 71 Respiratory Rate 19 Blood Pressure 140/80 Pulse Oximetry 99 Oxygen Delivery Method Room Air Oxygen Flow Rate 0 Narrative Exam Narrative: She is alert she is oriented times she is able to discuss and assist some in her mobilization. She has pain with range of motion in the right hip, there is no pain with range of motion in the left hip. She has reasonable range of motion in her right wrist. Her right knee range of motion brace is in place and her dressings intact. There is anticipated swelling along the knee in a small amount of ecchymosis. Objective Labs Result Diagrams: 06/29/19 07:05 06/26/19 12:27 Assessment & Plan Assessment & Plan narrative: Impression is improving status post right patella ORIF but very poor mobility. I think that she will require rehab as she has multiple pre-existing medical problems and extremely poor mobility and now with her new right knee fracture and she is unlikely to be able to be discharged to home independent situation. I have recommended that we get an MRI scan of her right hip to rule out a subtle fracture and I will check on her vitamin-D level. She will continue with physical therapy I anticipate she may be acceptable for discharge to rehab tomorrow depending upon her clinical course.
--- NOTE | 2019-06-30 10:16 | DI.MRI.S_ITS ---
PROCEDURE: MR HIP RT WO CON INDICATIONS: right hip pain after fall TECHNIQUE: Noncontrast coronal T1 spin echo and STIR through the bony pelvis. Coronal and axial T2 fast spin echo with fat saturation, sagittal T1 spin echo, and oblique axial T2 fast spin echo with fat saturation through the hip. COMPARISON: [facility], CR, XR HIP W PEL IF DONE RT 2V, 06/29/2019, 15:45. FINDINGS: Image quality: Diagnostic. Bones and joints: No acute fracture, dislocation, or suspicious osseous lesion is identified involving the osseous structures of the right hip. No evidence of avascular necrosis is identified. There are moderate degenerative changes of the right hip with heterogeneity of the hyaline articular cartilage and marginal osteophytes produce small right hip effusion is identified. The remainder of the imaged osseous structures of the include portions of the pelvis demonstrate no fractures or suspicious osseous lesions. Mild marrow edema is noted involving ischial tuberosity. Labrum: Evaluation of the labrum is suboptimal without intra-articular contrast. However, there is increased signal evident along the posterosuperior margin of the labrum that probably represents a chronic labral degeneration. No detached or displaced labral tears are appreciated. No large para labral cysts are identified. Tendons and ligaments: The ligamentum teres appears grossly intact where visualized. There is moderate grade partial-thickness tearing identified involving the distal aspect of the gluteus medius and gluteus minimus tendons with corresponding tendinopathy. Edema adjacent to the anterolateral margin of the proximal femoral shaft is identified that extends into the vastus intermedius muscle. There is slight increased signal identified involving the proximal right hamstrings tendons. The distal iliopsoas tendons are intact. Soft tissues: Visualized muscles demonstrate normal bulk and internal signal. Quadratus femoris muscle demonstrates no internal edema to suggest ischiofemoral impingement. The proximal sciatic neurovascular bundle appears normal adjacent to the hamstring tendons. No free pelvic fluid. Bladder wall thickness is normal. Genitourinary structures and bowel loops appear normal where visualized. IMPRESSION: 1. No acute fracture of the right hip. 2. Moderate degenerative changes of the right hip. 3. Mild marrow edema involving the ischial tuberosity probably is reactive from proximal right hamstrings tendinopathy. Please correlate clinically to exclude a bone contusion. There is no fracture. 4. Moderate grade partial-thickness tearing and tendinopathy involving the distal right gluteus medius and gluteus minimus tendons. 5. Edema involving the proximal aspect of the vastus intermedius muscle is suggestive of a muscle strain, likely acute. Dictated by: Aleksander Acosta M.D. on 06/30/2019 at 13:02 Approved by: Aleksander Acosta M.D. on 06/30/2019 at 13:07
[2019-06-30] MEDS: DOCUSATE 100 MG CAPSULE 200 MG PO (10:40)
--- NOTE | 2019-06-30 10:49 | PC.NURSE ---
Day shift: Pt refused lovenox injection. She said her fish oil pills will help keep her blood thin. Sent to pharmacy. Call light in reach.
--- NOTE | 2019-06-30 11:35 | PT.IPTN ---
Current Diagnoses Displaced comminuted fracture of right patella, initial encounter for closed fracture (06/26/19) Surgery Performed Operation Date: 06/28/19 13:15 Actual Procedures p ORIF Patella Fracture(Right) - Jose Purdy MD Physical Therapy Treatment Note M2 PT-IP Current Condition Start: 06/29/19 14:07 Freq: NEEDED Status: Active Protocol: Document 06/29/19 12:09 AB (Rec: 06/29/19 14:44 AB [id number]) Physical Therapy Current Condition Current Condition Evaluation Date 06/29/19 Treatment Diagnosis R displaced comminuted patellar fx s/p ORIF; difficulty in walking Onset Date 06/26/2019 Precautions Brace R knee hinged immobilizer locked in 0 deg flexion/ext. Other Precautions per Dr. Purdy's plan for aftercare note: Patient is weight-bearing as tolerated in a hinged knee brace locked in full extension. She should wear the knee brace at all times except for hygiene. She can come out of the knee brace and work with physical therapy on passive range of motion from 0-30 degrees of flexion. She also work on isometric quadriceps hamstring exercises. Weight Bearing Status Weight Bearing Status Weight Bear as Tolerated Allowed Weight Bearing Amount (enter % WBAT RLE with hinged braced or #) (%) locked in 0 deg extension M3 PT-IP Subjective Start: 06/29/19 14:07 Freq: NEEDED Status: Active Protocol: Document 06/30/19 11:35 CLB (Rec: 06/30/19 13:24 CLB [id number]) Subjective Physical Therapy Visit Type Type Treatment Note Visit Start Time 11:35 Visit Stop Time 11:45 Total Visit Minutes 10 Number of FINISHER HAND Visits 2 Physical Therapy Visit Comments Patient Comments Pt refusing to get OOB but agreeable to do ther ex in bed . Therapy Pain Assessment Pain When Pain Assessed At Rest Pain Present Pain Present Pain Reported M4 PT-IP Mobility and Gait Start: 06/29/19 14:07 Freq: NEEDED Status: Active Protocol: Document 06/30/19 11:35 CLB (Rec: 06/30/19 13:24 CLB [id number]) PT-Transfer Assessment Comments Mobility Comments Pt required assist with lifting leg and repositioning brace. Pt performed isometric exercises. Gait Assessment Comments Gait Comments refused M5 PT-IP Objective Assessments Start: 06/29/19 14:07 Freq: NEEDED Status: Active Protocol: Document 06/29/19 12:09 AB (Rec: 06/29/19 14:44 AB [id number]) Orientation Orientation/Cognition Level of Alertness Alert Orientation Name,Place,Situation Safety Awareness Decreased Safety Awareness Gross Range of Motion Lower Extremity ROM Assessment Right Impaired Impairments R knee on immobilizer and ROM not tested Strength Lower Extremity Strength Assessment Right Impaired Hip 2-/5 Knee 2-/5 Coordination Assessment Gross Coordination Gross Coordination WNL Muscle Tone Muscle Tone WNL Yes M6 PT-IP Treatment Start: 06/29/19 14:07 Freq: NEEDED Status: Active Protocol: Document 06/29/19 15:40 LJ (Rec: 06/29/19 16:52 LJ [email or web address]) Physical Therapy Treatment Education Education Provided Precautions,Weight Bearing Status,Safety Other Treatments Other Treatment Performed PROM flexion of RLE with brace locked at 30 degrees x 8 M7 PT-IP Assessment and Plan Start: 06/29/19 14:07 Freq: NEEDED Status: Active Protocol: Document 06/30/19 11:35 CLB (Rec: 06/30/19 13:24 CLB [id number]) PT Summary Assessment and Plan Potential Rehabilitation Potential Fair Status of Condition at Evaluation Evolving Summary Impairments Pain,ROM,Strength,Balance, Coordination,Sensation,Tone, Cognition,Bed Mobility, Transfers,Gait,Activity Tolerance Assessment Summary Pt required assist with readjusting brace as brace had slipped down leg and pt stated it was uncomfortable. Pt agreeable to only perform bed ther ex but stated she would attempt to get up with FINISHER HAND this afternoon. Goals Bed Mobility Goal Minimal Assistance Transfer Goal Minimal Assistance,Front Wheeled Walker Gait Goal Minimal Assistance,Front Wheel Walker Gait Distance 50 Other Goals up/down 3 steps 1 rail min A and cues Days to Meet Goals 5 Frequency of Treatment Frequency Of Treatment Twice a Day Treatment Plan Physical Therapy Treatment Plan Bed Mobility Training,Transfer Training,Gait Training, Therapeutic Exercise,Balance Retraining,Post Op Education, Discharge Planning,Hot or Cold Pack,Neuromuscular Re-ed, Coordination Retraining,Manual Therapy Recommendations To Nursing Amount of Assist Needed 2 Person Assist Discharge Recommendations PT Discharge Recommendations SNF Rehab Transportation Needs at Discharge Wheelchair/Cabulance
--- NOTE | 2019-06-30 13:11 | PC.NURSE ---
Day shift: Pt off unit for MRI at 1310.
[2019-06-30] MEDS: CODEINE/ACETAMINOPHEN 30/300 TABLET 1 TAB PO (14:06)
--- NOTE | 2019-06-30 15:10 | CM.DPNOTE ---
DCP/continued: Received verbal referral from provider/Dr. Diallo re: d/c planning. She reports that patient most likely will be medically stable for discharge by tomorrow 2-24-20. Provider and therapy both recommend SNF for therapy when stable. Met with patient explained CM/SW role. Patient in agreement that she will need to go to SNF. Patient reports that she lives alone and has no family or friends that can assist her at home. Patient's first SNF choice is [facility] second is [facility]. REFINERY PIPELINE OPERATOR called both facilities leaving messages re: admit. Unclear if both take [facility] (will not know till tomorrow in AM). Faxed demographic sheet to [facility] and clinicals to [facility]. Patient prefers to stay either in [place] or [place]. P: Pending. Faxed to [facility] for review and left vm faxed demographic sheet to [facility]. Patient most likely will be medically stable for d/c within the next 24-48hrs. Following closely. LIANA Perry
--- NOTE | 2019-06-30 15:40 | PT.IPTN ---
Current Diagnoses Displaced comminuted fracture of right patella, initial encounter for closed fracture (06/26/19) Surgery Performed Operation Date: 06/28/19 13:15 Actual Procedures p ORIF Patella Fracture(Right) - Jose Purdy MD Physical Therapy Treatment Note M2 PT-IP Current Condition Start: 06/29/19 14:07 Freq: NEEDED Status: Active Protocol: Document 06/29/19 12:09 AB (Rec: 06/29/19 14:44 AB [id number]) Physical Therapy Current Condition Current Condition Evaluation Date 06/29/19 Treatment Diagnosis R displaced comminuted patellar fx s/p ORIF; difficulty in walking Onset Date 06/26/2019 Precautions Brace R knee hinged immobilizer locked in 0 deg flexion/ext. Other Precautions per Dr. Purdy's plan for aftercare note: Patient is weight-bearing as tolerated in a hinged knee brace locked in full extension. She should wear the knee brace at all times except for hygiene. She can come out of the knee brace and work with physical therapy on passive range of motion from 0-30 degrees of flexion. She also work on isometric quadriceps hamstring exercises. Weight Bearing Status Weight Bearing Status Weight Bear as Tolerated Allowed Weight Bearing Amount (enter % WBAT RLE with hinged braced or #) (%) locked in 0 deg extension M3 PT-IP Subjective Start: 06/29/19 14:07 Freq: NEEDED Status: Active Protocol: Document 06/30/19 15:40 CLB (Rec: 06/30/19 17:07 CLB [id number]) Subjective Physical Therapy Visit Type Type Treatment Note Visit Start Time 15:40 Visit Stop Time 16:25 Total Visit Minutes 45 Number of NEPHROLOGIST Visits 3 Physical Therapy Visit Comments Patient Comments Pt on BSC with BAKE ROOM WORKER and agreeable to ambulate with PT then do bed ther ex. Therapy Pain Assessment Pain When Pain Assessed During Mobility Pain Present Pain Present Pain Reported M4 PT-IP Mobility and Gait Start: 06/29/19 14:07 Freq: NEEDED Status: Active Protocol: Document 06/30/19 15:40 CLB (Rec: 06/30/19 17:07 CLB [id number]) PT-Bed Mobility Assessment Sit to Supine Sit to Supine Minimal Assistance,1 Person Assistance,Head of Bed Elevated,Bedrails Scooting Scooting Up and Down in Bed Minimal Assistance PT-Transfer Assessment Sit to and From Stand Sit to and from Stand Contact Guard Assistance,1 Person Assistance,Use of Upper Extremities Equipment Transfer Assistive Device Gait Belt,Front Wheeled Walker Orthotic/Prosthetic Devices or Brace: Yes Transfers Transfer Destination Bed Transfer Technique Stand Step Pivot Transfer Ability Level of Assist Contact Guard Assistance,1 Person Assistance,Use of Upper Extremities Comments Mobility Comments [place] [facility] [place] of [place] onto floor, pt then walked 2 ft with FWW/CGA and cues for wt shifting and advancing RLE. Pt able to advance RLE minimally to take small step to step. Pt then pivoted and was able to side step several steps to get to HOB. With side steps pt was able to advance leg w/o issue. Pt required Min A of RLE onto bed then Min A of RLE while pt scooted over and up in bed. NEPHROLOGIST performed PROM on RLE. Left pt in bed with alarm on, brace locked in ext, call light and all other needs within reach. Gait Assessment Gait Gait Assistance Required: Contact Guard Assist,1 Person Assist Distance (Feet) 2 Able to Maintain Weight Bearing Status Yes During Gait Assistive Devices Assistive Device Gait Belt,Front Wheeled Walker Orthotic/Prosthetic Devices or Brace: Yes Gait Deviations General Gait Pattern Antalgic,Decreased Stride Length,Decreased Feet Clearance,Step-to Gait Factors Limiting Gait Function Factors Limiting Gait Function Decreased Activity Tolerance, Decreased Strength,Limited Range of Motion,Pain,Poor Balance,Poor Safety Awareness Comments Gait Comments see mobility comments M5 PT-IP Objective Assessments Start: 06/29/19 14:07 Freq: NEEDED Status: Active Protocol: Document 06/29/19 12:09 AB (Rec: 06/29/19 14:44 AB [id number]) Orientation Orientation/Cognition Level of Alertness Alert Orientation Name,Place,Situation Safety Awareness Decreased Safety Awareness Gross Range of Motion Lower Extremity ROM Assessment Right Impaired Impairments R knee on immobilizer and ROM not tested Strength Lower Extremity Strength Assessment Right Impaired Hip 2-/5 Knee 2-/5 Coordination Assessment Gross Coordination Gross Coordination WNL Muscle Tone Muscle Tone WNL Yes M6 PT-IP Treatment Start: 06/29/19 14:07 Freq: NEEDED Status: Active Protocol: Document 06/30/19 15:40 CLB (Rec: 06/30/19 17:07 CLB [id number]) Physical Therapy Treatment Other Treatments Other Treatment Performed PROM flexion of RLE with brace locked at 30 degrees 2 sets of 10 M7 PT-IP Assessment and Plan Start: 06/29/19 14:07 Freq: NEEDED Status: Active Protocol: Document 06/30/19 15:40 CLB (Rec: 06/30/19 17:07 CLB [id number]) PT Summary Assessment and Plan Potential Rehabilitation Potential Fair Status of Condition at Evaluation Evolving Summary Impairments Pain,ROM,Strength,Balance, Coordination,Sensation,Tone, Cognition,Bed Mobility, Transfers,Gait,Activity Tolerance Assessment Summary Pt improving with mobility was able to ambulate ~2ft with cues for wt shifting to advance RLE. Pt continues to require Min A sit-sup and sit< >stand to assist with RLE. Pt with good tolerance of PROM. Goals Bed Mobility Goal Minimal Assistance Transfer Goal Minimal Assistance,Front Wheeled Walker Gait Goal Minimal Assistance,Front Wheel Walker Gait Distance 50 Other Goals up/down 3 steps 1 rail min A and cues Days to Meet Goals 5 Frequency of Treatment Frequency Of Treatment Twice a Day Treatment Plan Physical Therapy Treatment Plan Bed Mobility Training,Transfer Training,Gait Training, Therapeutic Exercise,Balance Retraining,Post Op Education, Discharge Planning,Hot or Cold Pack,Neuromuscular Re-ed, Coordination Retraining,Manual Therapy Recommendations To Nursing Amount of Assist Needed 1 Person Assist Discharge Recommendations PT Discharge Recommendations SNF Rehab Transportation Needs at Discharge Wheelchair/Cabulance
[2019-06-30 16:11] VITALS: BP 128/63; PULSE 89; RESP 18; TEMP 37.2; O2SAT 98
--- NOTE | 2019-06-30 17:05 | PC.NURSE ---
Addendum entered by Randi Mir R.N. 06/30/19 21:15: Pt assisted to BR w/2 assist. HL intact. Aquacell dsg intact. Right leg remains in brace. Left leg w/SCD in place. Call light w/in reach, bed alarm on for pt safety. Continue w/plan plan of care. Original Note: Pt assisted w/PT to stand and take a few steps in room. Pt did well. Lungs clear, SpO2 98% RA Right lower leg in brace set @ 15degrees. Aquacell dsg CDI Pulses ++ Call light w/in reach, bed alarm on for pt safety.
[2019-06-30 20:42] VITALS: BP 117/68; PULSE 92; RESP 16; TEMP 36.5; O2SAT 98
[2019-07-01 00:07] VITALS: BP 126/78; PULSE 92; RESP 17; TEMP 37.3; O2SAT 94
--- NOTE | 2019-07-01 04:58 | PC.NURSE ---
CIWA scale seems more attuned to her pain and anxiety about moving her leg for ADLs. Score is reflection of pain and tactile disturbances from her ortho brace to affected leg.
[2019-07-01 05:00] VITALS: BP 128/84; PULSE 87; RESP 16; TEMP 36.8; O2SAT 98
--- NOTE | 2019-07-01 08:01 | PM.DS.1 ---
History of Present Illness History of Present Illness Date Patient Seen: 07/01/19 Time Patient Seen: 08:01 Chief complaint: Rt knee pain/ GLF Discharge Providers Provider Date of admission: 06/26/19 09:18 Primary care physician: Citlali Earl MD Consults: 06/26/19 11:32 Consult to PLANT SCIENCES PROFESSOR - Hand Rug Braider Stat Comment: hospital bed etc on DC. Patient has difficulties PLANT SCIENCES PROFESSOR Consult: [facility] Need 06/28/19 16:47 Consult to Discharge Planning Routine Comment: Consult to Physical Therapy Evaluate & Treat Comment: Physician Instructions: Evaluate and Treat Consult to Respiratory Therapy Evaluate & Treat Comment: Physician Instructions: Evaluate and treat Discharge provider: Roxanna Bridges PA-C Exam Vital Signs (past 8 hours): - 07/01/19 00:07 07/01/19 05:00 Temperature 99.2 F 98.3 F Pulse Rate 92 H 87 Respiratory Rate 17 16 Blood Pressure 126/78 128/84 Pulse Oximetry 94 98 Oxygen Delivery Method Room Air Oxygen Flow Rate 0 Objective Labs Result Diagrams: 06/29/19 07:05 06/26/19 12:27 Discharge Plan Discharge Plan Patient Disposition: SNF Transfer to: [facility] Discharge orders & Medications Prescriptions: New sennosides [senna] 8.6 mg Tablet 17.2 mg PO BID Qty: 20 RF: 0 docusate sodium [DOK] 100 mg Capsule 200 mg PO DAILY Qty: 20 RF: 0 enoxaparin [Lovenox] 40 mg/0.4 mL Syringe 40 mg subcut DAILY 6 Days Qty: 2.4 RF: 0 acetaminophen-codeine [Tylenol-Codeine #3] 300-30 mg tablet 1 tab PO Q4-6H PRN (Reason: pain) Qty: 30 RF: 0 Continued vitamin E 400 unit Capsule 400 unit PO DAILY Qty: 0 RF: 0 cholecalciferol (vitamin D3) [Vitamin D3] 2,000 UNIT capsule 2,000 iu PO DAILY Qty: 0 RF: 0 omega 2-pji-jqa-fish oil [Fish Oil] 1,000 mg (120 mg-180 mg) Capsule 1 cap PO DAILY Qty: 0 RF: 0 mupirocin 2 % ointment 1 applic topical BID RF: 0 ascorbic acid (vitamin C) [Vitamin C] 250 mg Tablet,Chewable 1,000 mg PO DAILY RF: 0 Follow up/Referrals: Citlali Earl MD [Primary Care Provider] - Jose Purdy MD [Physician] - Visit Report/Discharge Packet Instructions: DI for Patella Fracture Discharge Data Primary Care Provider: Citlali Earl
--- NOTE | 2019-07-01 08:34 | PC.NURSE ---
Day shift: Pt refused SCD to left leg. Pt has also been refusing Lovenox injections. Pt made aware of their benefits and still does not want them. Pt has been doing foot waves when awake and this has been encouraged by this development writer often. Call light in reach.
--- NOTE | 2019-07-01 08:52 | PC.NURSE ---
Patient did not want vitals to be taken this morning, said she just wanted to sleep. Vitals were last took at 0500 and looked normal.
[2019-07-01] MEDS: DOCUSATE 100 MG CAPSULE 200 MG PO (10:08)
[2019-07-01 10:12] VITALS: BP 119/84; PULSE 84; RESP 16; TEMP 36.8; O2SAT 97
--- NOTE | 2019-07-01 10:46 | PT-IP ANOTE ---
Attempted to see pt, pt stated she was having an emergency situation at her house and she was on the phone to the boiler house mechanic and couldn't work with therapy right now. Will check back with pt later for tx.
[2019-07-01] MEDS: CODEINE/ACETAMINOPHEN 30/300 TABLET 1 TAB PO ×2 (11:51→22:10)
[2019-07-01 12:08] VITALS: BP 107/73; PULSE 89; RESP 16; TEMP 36.7; O2SAT 97
--- NOTE | 2019-07-01 13:50 | PT.IPTN ---
Current Diagnoses Displaced comminuted fracture of right patella, initial encounter for closed fracture (06/26/19) Surgery Performed Operation Date: 06/28/19 13:15 Actual Procedures p ORIF Patella Fracture(Right) - Jose Purdy MD Physical Therapy Treatment Note M2 PT-IP Current Condition Start: 06/29/19 14:07 Freq: NEEDED Status: Active Protocol: Document 06/29/19 12:09 AB (Rec: 06/29/19 14:44 AB [id number]) Physical Therapy Current Condition Current Condition Evaluation Date 06/29/19 Treatment Diagnosis R displaced comminuted patellar fx s/p ORIF; difficulty in walking Onset Date 06/26/2019 Precautions Brace R knee hinged immobilizer locked in 0 deg flexion/ext. Other Precautions per Dr. Purdy's plan for aftercare note: Patient is weight-bearing as tolerated in a hinged knee brace locked in full extension. She should wear the knee brace at all times except for hygiene. She can come out of the knee brace and work with physical therapy on passive range of motion from 0-30 degrees of flexion. She also work on isometric quadriceps hamstring exercises. Weight Bearing Status Weight Bearing Status Weight Bear as Tolerated Allowed Weight Bearing Amount (enter % WBAT RLE with hinged braced or #) (%) locked in 0 deg extension M3 PT-IP Subjective Start: 06/29/19 14:07 Freq: NEEDED Status: Active Protocol: Document 07/01/19 13:50 CLB (Rec: 07/01/19 15:10 CLB [id number]) Subjective Physical Therapy Visit Type Type Treatment Note Visit Start Time 13:51 Visit Stop Time 14:40 Total Visit Minutes 49 Number of MIXING TECHNICIAN Visits 4 Physical Therapy Visit Comments Patient Comments Pt agreeable to ambulate with therapy. Therapy Pain Assessment Pain When Pain Assessed During Mobility Pain Present Pain Present Pain Reported M4 PT-IP Mobility and Gait Start: 06/29/19 14:07 Freq: NEEDED Status: Active Protocol: Document 07/01/19 13:50 CLB (Rec: 07/01/19 15:10 CLB [id number]) PT-Bed Mobility Assessment Supine to Sit Supine to Sit Minimal Assistance,1 Person Assistance,Head of Bed Elevated Sit to Supine Sit to Supine Minimal Assistance,1 Person Assistance,Head of Bed Elevated,Bedrails Scooting Scooting to Edge of Bed Minimal Assistance Scooting Up and Down in Bed Minimal Assistance PT-Transfer Assessment Sit to and From Stand Sit to and from Stand Minimal Assistance,1 Person Assistance,Use of Upper Extremities Equipment Transfer Assistive Device Gait Belt,Front Wheeled Walker Orthotic/Prosthetic Devices or Brace: Yes Transfers Transfer Destination Bed Transfer Technique Stand Step Pivot Transfer Ability Level of Assist Minimal Assistance,1 Person Assistance,Use of Upper Extremities Comments Mobility Comments Pt requires Min A of RLE as pt scoots to EOB. Pt then requires Min A of RLE to keep RLE raised until pt is standing, then once standing pt can tolerate leg being lowered to floor. Pt was able to ambulate ~12ft w/FWW/SBA and was able to advance RLE to take steps. Pt requires increased time for ambulation with standing rest breaks. Pt then required Min A of RLE into bed. Pt is able to scoot to HOB while RLE is supported. Pt tolerated PROM well. Pt left in bed with all needs within reach and bed alarm on. Pt asked to wait on SCD's for now. Informed STRAIGHTENER of pt progress. Gait Assessment Gait Gait Assistance Required: Standby Assistance,1 Person Assist Distance (Feet) 12 Able to Maintain Weight Bearing Status Yes During Gait Assistive Devices Assistive Device Gait Belt,Front Wheeled Walker Orthotic/Prosthetic Devices or Brace: Yes Gait Deviations General Gait Pattern Antalgic,Decreased Stride Length,Decreased Feet Clearance,Step-to Gait Factors Limiting Gait Function Factors Limiting Gait Function Decreased Activity Tolerance, Decreased Strength,Limited Range of Motion,Pain,Poor Balance,Poor Safety Awareness Comments Gait Comments see mobility comments M5 PT-IP Objective Assessments Start: 06/29/19 14:07 Freq: NEEDED Status: Active Protocol: Document 06/29/19 12:09 AB (Rec: 06/29/19 14:44 AB [id number]) Orientation Orientation/Cognition Level of Alertness Alert Orientation Name,Place,Situation Safety Awareness Decreased Safety Awareness Gross Range of Motion Lower Extremity ROM Assessment Right Impaired Impairments R knee on immobilizer and ROM not tested Strength Lower Extremity Strength Assessment Right Impaired Hip 2-/5 Knee 2-/5 Coordination Assessment Gross Coordination Gross Coordination WNL Muscle Tone Muscle Tone WNL Yes M6 PT-IP Treatment Start: 06/29/19 14:07 Freq: NEEDED Status: Active Protocol: Document 07/01/19 13:50 CLB (Rec: 07/01/19 15:10 CLB [id number]) Physical Therapy Treatment Other Treatments Other Treatment Performed PROM flexion of RLE with brace locked at 30 degrees 4 sets of 10 M7 PT-IP Assessment and Plan Start: 06/29/19 14:07 Freq: NEEDED Status: Active Protocol: Document 07/01/19 13:50 CLB (Rec: 07/01/19 15:10 CLB [id number]) PT Summary Assessment and Plan Summary Impairments Pain,ROM,Strength,Balance, Coordination,Sensation,Tone, Cognition,Bed Mobility, Transfers,Gait,Activity Tolerance Assessment Summary Pt progressing with gait was able to tolerate ambulation of ~12ft w/FWW/SBA, pt was able to advance RLE independently and tolerated increased wt bearing. Pt is able to get in and out of bed with Min A of RLE only and is able to position herself in bed with UE's but requires assist of RLE during repositioning. Pt tolerated PROM well with decreased pain during movement . Pt will benefit from SNF rehab for improving strength and functional mobility. Goals Bed Mobility Goal Minimal Assistance Transfer Goal Minimal Assistance,Front Wheeled Walker Gait Goal Minimal Assistance,Front Wheel Walker Gait Distance 50 Other Goals up/down 3 steps 1 rail min A and cues Days to Meet Goals 5 Frequency of Treatment Frequency Of Treatment Twice a Day Treatment Plan Physical Therapy Treatment Plan Bed Mobility Training,Transfer Training,Gait Training, Therapeutic Exercise,Balance Retraining,Post Op Education, Discharge Planning,Hot or Cold Pack,Neuromuscular Re-ed, Coordination Retraining,Manual Therapy Recommendations To Nursing Amount of Assist Needed 1 Person Assist Discharge Recommendations PT Discharge Recommendations SNF Rehab Transportation Needs at Discharge Wheelchair/Cabulance
--- NOTE | 2019-07-01 14:23 | CM.DPC ---
DCP/continued: Received orders for patient to d/c to SNF today. Placed call to Dixie at [facility] and [facility] (swing bed) [employer] MANAGER requested that they review for admit and obtain authorization from [facility]. Met with patient and first SNF choice is [facility] ashlie Silva. Spoke with Dixie and she is attempting authorization. As of 2:30pm have not heard back. Patient reports that she has nobody at home and cannot safely get to/from bathroom. Therefore, she believes only option is short SNF stay. P: Pending. Patient with d/c order today. Awaiting acceptance/authorization from either [facility] or [facility]. LIANA Perry
--- NOTE | 2019-07-01 15:18 | P.PN_ITS ---
Subjective Subjective Date Patient Seen: 07/01/19 Time Patient Seen: 07:18 Interval history: POD #3 s/p patella ORIF with Dr. Purdy. Julia requires a 1-2 person assist in order to get out of the bed to a chair. She notes that she has chronic severe immobility problems associated with the chronic herniated disc in her low back. She also has a history of a right wrist fracture with chronic right wrist stiffness which impairs her mobility. She has a history of a left ankle fracture with a delayed union which was felt to be partially related to a low vitamin D. Her right knee continues to be painful to the extent that she is unable to do a straight leg raise and is unable to assist with lifting her right leg. She complains of the brace being tight and uncomfortable. Plan to discharge to SNF. Exam Vital Signs (past 8 hours): - 07/01/19 10:12 07/01/19 12:08 Temperature 98.2 F 98.0 F Pulse Rate 84 89 Respiratory Rate 16 16 Blood Pressure 119/84 107/73 Pulse Oximetry 97 97 Oxygen Delivery Method Room Air Oxygen Flow Rate 0 Narrative Exam Narrative: Patient lying in bed in NAD. She is oriented x3. Brace is well- fitting. Dressing is CDI. Calves are soft, compressible, nontender bilaterally. She is able to actively dorsiflex plantar flex. Dorsalis pedis pulses are symmetrical. Objective Labs Result Diagrams: 06/29/19 07:05 06/26/19 12:27 Assessment & Plan Post-op Postoperative Procedures: Procedures Operation Date: 06/28/19 13:15 Actual Procedures Side Surgeon p ORIF Patella Fracture Right Jose Purdy MD Patient will continue mobilize with physical therapy today. She will require rehab as she has multiple pre-existing medical problems and extremely poor mobility and now with her new right knee fracture and she is unlikely to be able to be discharged to home independent situation. Awaiting vitamin D results. SCDs and Lovenox for DVT prophylaxis as patient has allergy to ASA. Patient refusing Lovenox. Per Dr. Purdy: Patient is weight-bearing as tolerated in a hinged knee brace locked in full extension. She should wear the knee brace at all times except for hygiene. She can come out of the knee brace and work with physical therapy on passive range of motion from 0-30 degrees of flexion. She also work on isometric quadriceps hamstring exercises. Will likely discharge to SNF due to poor mobility postoperatively. Awaiting SNF authorization. Recommending airbed for her multiple medical problems. She has had frequent disc herniations.
[2019-07-01 16:30] VITALS: BP 116/66; PULSE 86; RESP 17; TEMP 36.4; O2SAT 96
--- NOTE | 2019-07-01 18:33 | PC.NURSE ---
Addendum entered by Randi Mir R.N. 07/01/19 23:33: Pt had a shower tjhis evening, tolerated well Stable post op course. Call light w/in reach, bed alarm on for pt safety. Continue as per plan of care. Original Note: Pt watching TV, denies discomfort at this time. Brace in place on right leg. Lungs clear, SpO2 98% RA Stable post op course. Call ligth w/in reach. Pt calls appropriate for needs.
[2019-07-01 21:15] VITALS: BP 112/78; PULSE 85; RESP 16; TEMP 36.8; O2SAT 100
[2019-07-02 00:25] VITALS: BP 116/67; PULSE 94; RESP 18; TEMP 36.7; O2SAT 95
--- NOTE | 2019-07-02 02:29 | PC.NURSE ---
Shift note: Patient AxOx3, can make her needs known. Patient with high anxiety about her dogs at home, the possibility of getting a blood clot, her extensive health problems/injuries and other various issues. Patient requires multiple minor adjustments to her position in bed and requires great assistance to get out of bed. Assessment of patient was notable only for Aquacell, immobilizing brace, and bruising to right knee, elevated HR, and reporting high levels of pain to her lower back, crotch, and knee. This RN was called into patient's room because patient was c/o that her right foot was cold and numb. Quickly assessed patient's pulses and found both posterior tibialis and dorsalis pedis pulses strong and regular, foot was warm to the touch, brisk cap refill to great toe, and patient could feel the sole of her foot. Patient had removed her brace as she felt it contributed to the feeling that her leg was numb, educated patient the importance of the brace and that she could manipulate the straps for comfort. Patient wanted this RN to be aware of her wishes should she have a stroke as they were written down in her chart. She also wanted this RN to be aware of her discharge plan and that she had not be able to speak with care management about her urgent need to discharge to [facility] to be able to see her dogs. Explained that the information would be passed on to day shift. Patient able to adequately express her needs and cares to staff and makes use of her call light. Patient is a high fall risk due to recent fall and maximum assistance needed to be out of bed. Bed alarm on and functioning, call light in reach.
[2019-07-02 05:00] VITALS: BP 122/74; PULSE 78; RESP 18; TEMP 36.9; O2SAT 99
[2019-07-02] MEDS: CODEINE/ACETAMINOPHEN 30/300 TABLET 1 TAB PO ×2 (09:27→16:31)
[2019-07-02 10:54] VITALS: BP 130/76; PULSE 82; RESP 18; TEMP 36.8; O2SAT 99
--- NOTE | 2019-07-02 11:31 | PT.IPTN ---
Current Diagnoses Displaced comminuted fracture of right patella, initial encounter for closed fracture (06/26/19) Surgery Performed Operation Date: 06/28/19 13:15 Actual Procedures p ORIF Patella Fracture(Right) - Jose Purdy MD Physical Therapy Treatment Note M2 PT-IP Current Condition Start: 06/29/19 14:07 Freq: NEEDED Status: Active Protocol: Document 06/29/19 12:09 AB (Rec: 06/29/19 14:44 AB [id number]) Physical Therapy Current Condition Current Condition Evaluation Date 06/29/19 Treatment Diagnosis R displaced comminuted patellar fx s/p ORIF; difficulty in walking Onset Date 06/26/2019 Precautions Brace R knee hinged immobilizer locked in 0 deg flexion/ext. Other Precautions per Dr. Purdy's plan for aftercare note: Patient is weight-bearing as tolerated in a hinged knee brace locked in full extension. She should wear the knee brace at all times except for hygiene. She can come out of the knee brace and work with physical therapy on passive range of motion from 0-30 degrees of flexion. She also work on isometric quadriceps hamstring exercises. Weight Bearing Status Weight Bearing Status Weight Bear as Tolerated Allowed Weight Bearing Amount (enter % WBAT RLE with hinged braced or #) (%) locked in 0 deg extension M3 PT-IP Subjective Start: 06/29/19 14:07 Freq: NEEDED Status: Active Protocol: Document 07/02/19 11:31 CLB (Rec: 07/02/19 14:16 CLB [id number]) Subjective Physical Therapy Visit Type Type Treatment Note Visit Start Time 11:31 Visit Stop Time 12:21 Total Visit Minutes 50 Number of HEALTH UNIT SUPERVISOR Visits 5 Physical Therapy Visit Comments Patient Comments Pt agreeable to ambulate with therapy. Therapy Pain Assessment Pain When Pain Assessed During Mobility Pain Present Pain Present Pain Reported M4 PT-IP Mobility and Gait Start: 06/29/19 14:07 Freq: NEEDED Status: Active Protocol: Document 07/02/19 11:31 CLB (Rec: 07/02/19 14:16 CLB [id number]) PT-Bed Mobility Assessment Supine to Sit Supine to Sit Minimal Assistance,1 Person Assistance,Head of Bed Elevated Sit to Supine Sit to Supine Minimal Assistance,1 Person Assistance,Head of Bed Elevated,Bedrails Scooting Scooting to Edge of Bed Minimal Assistance PT-Transfer Assessment Sit to and From Stand Sit to and from Stand Minimal Assistance,1 Person Assistance,Use of Upper Extremities Equipment Transfer Assistive Device Gait Belt,Front Wheeled Walker Orthotic/Prosthetic Devices or Brace: Yes Transfers Transfer Destination Bed,Toilet Transfer Technique Stand Step Pivot Transfer Ability Level of Assist Minimal Assistance,1 Person Assistance,Use of Upper Extremities Comments Mobility Comments Pt requires Min A with bed mobility and transfers to assist RLE in and out of bed and sit<>stand. Once pt is standing pt is SBA for gait and standing balance. Pt ambulated to window seat and back to bed then to BR. After using toilet pt ambulate to sink to wash hands and brush her teeth then ambulated to left side of bed. Pt requires increased time to complete gait distances. Pt was left in bed with alarm on and all needs within reach. Gait Assessment Gait Gait Assistance Required: Standby Assistance,1 Person Assist Distance (Feet) 50 Able to Maintain Weight Bearing Status Yes During Gait Assistive Devices Assistive Device Gait Belt,Front Wheeled Walker Orthotic/Prosthetic Devices or Brace: Yes Gait Deviations General Gait Pattern Antalgic,Decreased Stride Length,Decreased Feet Clearance,Step-to Gait Factors Limiting Gait Function Factors Limiting Gait Function Decreased Activity Tolerance, Decreased Strength,Limited Range of Motion,Pain,Poor Balance,Poor Safety Awareness Comments Gait Comments see mobility comments M5 PT-IP Objective Assessments Start: 06/29/19 14:07 Freq: NEEDED Status: Active Protocol: Document 06/29/19 12:09 AB (Rec: 06/29/19 14:44 AB [id number]) Orientation Orientation/Cognition Level of Alertness Alert Orientation Name,Place,Situation Safety Awareness Decreased Safety Awareness Gross Range of Motion Lower Extremity ROM Assessment Right Impaired Impairments R knee on immobilizer and ROM not tested Strength Lower Extremity Strength Assessment Right Impaired Hip 2-/5 Knee 2-/5 Coordination Assessment Gross Coordination Gross Coordination WNL Muscle Tone Muscle Tone WNL Yes M6 PT-IP Treatment Start: 06/29/19 14:07 Freq: NEEDED Status: Active Protocol: Document 07/02/19 11:31 CLB (Rec: 07/02/19 14:16 CLB [id number]) Physical Therapy Treatment Other Treatments Other Treatment Performed PROM flexion of RLE with brace locked at 30 degrees 2 sets of 10 M7 PT-IP Assessment and Plan Start: 06/29/19 14:07 Freq: NEEDED Status: Active Protocol: Document 07/02/19 11:31 CLB (Rec: 07/02/19 14:16 CLB [id number]) PT Summary Assessment and Plan Potential Rehabilitation Potential Fair Status of Condition at Evaluation Evolving Summary Impairments Pain,ROM,Strength,Balance, Coordination,Sensation,Tone, Cognition,Bed Mobility, Transfers,Gait,Activity Tolerance Assessment Summary Pt continues to require Min A with bed mobility and transfers to assist RLE in and out of bed and sit<>stand. Once pt is standing pt is SBA for gait and standing balance. Goals Bed Mobility Goal Minimal Assistance Transfer Goal Minimal Assistance,Front Wheeled Walker Gait Goal Minimal Assistance,Front Wheel Walker Gait Distance 50 Other Goals up/down 3 steps 1 rail min A and cues Days to Meet Goals 5 Frequency of Treatment Frequency Of Treatment Twice a Day Treatment Plan Physical Therapy Treatment Plan Bed Mobility Training,Transfer Training,Gait Training, Therapeutic Exercise,Balance Retraining,Post Op Education, Discharge Planning,Hot or Cold Pack,Neuromuscular Re-ed, Coordination Retraining,Manual Therapy Recommendations To Nursing Amount of Assist Needed 1 Person Assist Discharge Recommendations PT Discharge Recommendations SNF Rehab Transportation Needs at Discharge Wheelchair/Cabulance
--- NOTE | 2019-07-02 12:39 | CM.DPC ---
Addendum entered by Elaine Diallo R.N. 07/03/19 15:23: Bharatih/Rn Received a call from Dixie with [facility] who updated CM about patient status- Dixie stated that she can not accept patient due to [facility] not paying enough to cover the cost of their Rehab costs. BHARATHI/Rn updated and let Dixie know that patient was D/C home with HH. Dixie stated understanding. Elaine Diallo RN Addendum entered by Elaine Diallo R.N. 07/03/19 13:49: CM/RN spoke with [facility] and verified that patient's HH file has been started and they plan on reaching out to patient today to schedule the start of her services. Angela Dent CM manager user experience updated and she will contact patient to discuss concerns with patient. Face to Face that was faxed to [facility] given to BRENTON Nur to scan into patients chart along with Fax confirmation. Elaine Diallo RN Addendum entered by Elaine Diallo R.N. 07/03/19 12:00: CM/Rn received a Voice mail from patient today, Patient was very upset and stated that she was told she would not be able to get her hospital bed for 7 to 10 days. CM/Rn Called patients [facility] insurance and informed patient at that time that her insurance would take time to approve and delivered a bed. Patient was interested in cost of renting a hospital bed out of pocket. CM/ RN gave information to patient from [facility] with cost of renting a hospital bed and told patient it could take at least a few days to receive a bed. CM/RN called [facility] to set up HH through them and gave patient information about [facility] as well as faxed face to face signed by provider. CM/ RN will call today and check on [facility] status. Patient given information about private pay Caregivers from [facility] Resources guide for patient to call and get private pay caregivers set up. CM manager user experience Angela Dent updated and she will contact patient to discuss patients concerns. CM/RN received message from Yuriy from [facility] and give a call reference #[id number]...This call was about needing a Prior Auth for patients Air mattress. Patient was given a RX for an Air mattress at D/C. Patients surgeon or PCP should be following up with patient about needed air mattress. Patient was an inpatient for Rt Knee patella fracture. [facility] rose Yan also talked about HH and about how patient wanting a chiropractic care for the next five days for 5 to 7 hours a day and HH services with PT and OT. CM/Rn called [facility] back to check on HH authorization and to make sure it has been placed. Addendum entered by Elaine Diallo R.N. 07/02/19 14:43: BHARATHI/RN met with patient at the bedside and discussed d/c home with home health since patient was not getting accepted by [facility] and was unwilling to go to any other facility. BHARATHI/Rn talked with patients provider and PT and OT and all agreed patient can go home today with HH. Patient requested a air bed RX for her home since she has struggled with getting up. Patients surgeon wrote RX and patient given information about [facility] to get mattress through. Patient will be going home by BLS- patient requested BLS since she is unable to climb her stairs and has a steep driveway. BLS necessity form filled out and signed by provider. Patient notified she might have a bill if insurance disagrees with BLS necessity. Patient stated she will cover the extra cost if needed. patient updated about transport time for 4:15PM. Staff notified. elaine Diallo RN Original Note: DCP continued: EMR reviewed: Patient is a 48 yr old female who was admitted for surgery to her Rt knee. Patient would like to go to [facility] since it is close to her home. Patient aware of the [facility] challenges getting inusrance Authorization. Patient stated she would be willing to pay out of pocket to go to [facility] if she needs to. BHARATHI/RN called [facility] and left a message for Dixie to call back. Bharathi/RN will call again at 1pm if I have not heard back from them by then. Secondary plan is to D/C home with Home Health. if [facility] will not accept patient. Elaine Diallo RN
--- NOTE | 2019-07-02 14:36 | P.DS_ITS ---
History of Present Illness History of Present Illness Date Patient Seen: 07/02/19 Time Patient Seen: 14:37 Chief complaint: Rt knee pain/ GLF Narrative: Comminuted right patella fracture with extensor mechanism disruption Discharge Providers Provider Date of admission: 06/26/19 09:18 Discharge Date: 07/02/19 Consults: 06/26/19 11:32 Consult to SALES AND SERVICE ASSOCIATE - Embossing Machine Tender Stat Comment: hospital bed etc on DC. Patient has difficulties SALES AND SERVICE ASSOCIATE Consult: [facility] Res Need 06/28/19 16:47 Consult to Discharge Planning Routine Comment: Consult to Physical Therapy Evaluate & Treat Comment: Physician Instructions: Evaluate and Treat Consult to Respiratory Therapy Evaluate & Treat Comment: Physician Instructions: Evaluate and treat Discharge provider: Roxanna Bridges PA-C Summary Hospital Course Discharge Diagnosis: s/p ORIF patella fracture Hospital Course: Kaur was admitted for an ORIF right patella fracture with Dr. Purdy. Patient was very slow to mobilize after surgery. She required significant assistance with mobilizing. On POD #4 patient progressed enough to where she could be DCd home with home health services. She has multiple comorbidities and required BLS for transport home. She was provided a prescription for a hospital air bed that patient has required since surgery. At time of discharge she worked with PT and was cleared for home. She was eating and voiding without difficulty or assistance. She has refused lovenox throughout her stay. She was advised this medication is important to decrease risk of blood clots. She was provided a prescription for home in case she changes her mind. Knee brace well fitting at time of DC. Dressing changed prior to DC. Exam Vital Signs (past 8 hours): - 07/02/19 10:54 Temperature 98.3 F Pulse Rate 82 Respiratory Rate 18 Blood Pressure 130/76 Pulse Oximetry 99 Oxygen Delivery Method Room Air Oxygen Flow Rate 0 Narrative Exam Narrative: Patient lying in bed in NAD. She is alert and oriented X3. Dressing on right leg is CDI. Knee brace in place. Calves are soft, compressible, and nontender bilaterally. SILT throughout BLEs. DP symmetrical. Shes able to actively dorsiflex and plantarflex. Her pain is well controlled today. She has concerns for swelling but this is normal postoperative swelling. Objective Labs Result Diagrams: 06/29/19 07:05 06/26/19 12:27 Labs: Laboratory Results - last 24 hr 06/29/19 07:05 25-OH Vitamin D Total 18 L 25-Hydroxy Vitamin D2 < 4 25-Hydroxy Vitamin D3 18 Discharge Plan Discharge Plan Patient Disposition: Home Health Service Discharge orders & Medications Prescriptions: New docusate sodium [DOK] 100 mg Capsule 200 mg PO DAILY Qty: 20 RF: 0 enoxaparin [Lovenox] 40 mg/0.4 mL Syringe 40 mg subcut DAILY 6 Days Qty: 2.4 RF: 0 acetaminophen-codeine [Tylenol-Codeine #3] 300-30 mg tablet 1 tab PO Q4-6H PRN (Reason: pain) Qty: 30 RF: 0 (DME) Hospital Bed Qty: 1 RF: 0 Continued vitamin E 400 unit Capsule 400 unit PO DAILY Qty: 0 RF: 0 cholecalciferol (vitamin D3) [Vitamin D3] 2,000 UNIT capsule 2,000 iu PO DAILY Qty: 0 RF: 0 omega 2-ptv-uwg-fish oil [Fish Oil] 1,000 mg (120 mg-180 mg) Capsule 1 cap PO DAILY Qty: 0 RF: 0 mupirocin 2 % ointment 1 applic topical BID RF: 0 ascorbic acid (vitamin C) [Vitamin C] 250 mg Tablet,Chewable 1,000 mg PO DAILY RF: 0 Follow up/Referrals: Citlali Earl MD [Primary Care Provider] - Jose Purdy MD [Physician] - Visit Report/Discharge Packet Instructions: DI for Patella Fracture, How to Prevent Falls, DI for Prescription Opioid Use Discharge Data Primary Care Provider: Citlali Earl Discharges patient from system. Discharge Date/Time: 07/02/19 16:55
--- NOTE | 2019-07-02 15:10 | CM.DPNOTE ---
DCP: Called BLS and set up transport for patient. She will be picked up at approximately 1615. Completed form and face sheet, and placed with chart. Updated white board, and nurse, Fina. Selene Campbell RN/Behavioral Health Professional
--- NOTE | 2019-07-02 15:17 | PT-IP ANOTE ---
Pt to d/c home at 4:30 via BLS.
--- NOTE | 2019-07-02 16:14 | PC.NURSE ---
Patient discharged A/Ox4, stable, accompanied by two sons. IV was removed, patient's belongings were gathered and removed by son and patient left via wheelchair to private vehicle. Discharge instructions were discussed with family and patient. Family stated they were going directly from hospital to an appointment with primary care doctor.
--- NOTE | 2019-07-02 17:00 | PC.NURSE ---
Pt given home instructions & RX. Pt very slow in moving forward to go home. Very anxious at this time. BLS here at 1610 to transfer and pt not ready til 1650. [employer] dsg to right knee changed. Pt transferred home via BLS in stable condition.
--- NOTE | 2019-07-03 14:50 | CM.DPNOTE ---
Pt. called office today. Pt. upset about prescription, bed availability and [facility] not calling her yet. Spoke to Elaine GONZALES about HH and she called [facility]. They will call patient this afternoon to set up visits. Pt. informed Patient's friend didn't bring the hard copy of the Tylenol #3 prescription to [facility], so they could not fill it. I explained that he will need to do that to get the prescription filled. She had concerns about authorization from [facility] for her pain medication to be filled. I called [facility] and they said they wouldn't know if there is an issue until he ran the hardcopy script but even though all 30 days may n ot be covered he has never had a problem getting 7 days a week filled for a recent hospital discharge. I called Ms. Farr back and told her what [place] said, reminded her that [facility] would call this afternoon and provided the phone number to Dr. Purdy's office so that she can talk to them about their authorizing for the air mattress with [facility].Patient expressed her thanks and denied further needs.
== END 2019-07-02 16:55 | disposition home health service (06) | DRG 320 ==
LOC: ED 08:28 → AC 09:53
PROVIDERS: Admitting Provider Orthopaedic Surgery Adult Reconstructive Orthopaedic Surgery; Emergency Provider Emergency Medicine; PCP Orthopaedic Surgery Foot and Ankle Surgery; Referring Provider Emergency Medicine; Visit Provider Orthopaedic Surgery Adult Reconstructive Orthopaedic Surgery
PROC: 0QSD04Z Reposition Right Patella with Internal Fixation Device, Open Approach (ICD-10-PCS; CPT 27524; principal; 2019-06-28 14:00)
DX: S82.041A Displaced comminuted fracture of right patella, initial encounter for closed fracture (principal); W01.0XXA Fall on same level from slipping, tripping and stumbling without subsequent striking against object, initial encounter; Y92.008 Other place in unspecified non-institutional (private) residence as the place of occurrence of the external cause
CPT/HCPCS: 36415; 73502; 73562; 73721; 80048; 82306; 85014; 85018; 85025; 85027; 86850; 86900; 86901; 97110; 97116; 97162; 97530; 99284; J1100; J2270; J2405; J2704; J3010

== ENCOUNTER 2021-03-02 12:17 | Emergency (ER) | payer OTHER, MEDICAID, SELFPAY ==
[2019-06-26 11:51] VITALS: BMI 33.1
[2021-03-02 13:25] VITALS: BP 135/76; PULSE 86; RESP 18; TEMP 36.9; O2SAT 96
--- NOTE | 2021-03-02 13:29 | DI.RAD.S_ITS ---
PROCEDURE: XR ELBOW RT MIN 3V INDICATIONS: struck right elbow several months ago, worsening pain TECHNIQUE: 3 views of the elbow were acquired. COMPARISON: None. FINDINGS: Bones: No fractures or dislocations. No suspicious bony lesions. Soft tissues: No elbow joint effusion. No suspicious soft tissue calcifications. IMPRESSION: No acute osseous abnormality. Dictated by: Tesfaye Manuel M.D. on 03/02/2021 at 13:57 Approved by: Tesfaye Manuel M.D. on 03/02/2021 at 13:58
--- NOTE | 2021-03-02 14:31 | ED_ITS ---
HPI - Extremity Injury (Upper) General Chief Complaint: Extremity Injury, Upper Stated Complaint: right arm fracture Time Seen by Provider: 03/02/21 14:12 Source: patient Mode of arrival: Ambulatory History of Present Illness HPI narrative: 50-year-old female nonsmoker with history of previous orthopedic injuries presents with a chief complaint of ongoing right elbow pain since December. She was leaning heavily on her elbow and bumped it against a hard surface and has had significant pain overlying her lateral elbow since. She has had pain with range of motion and improvement with rest. She occasionally has some numbness and tingling of her fingers. She has been seen and evaluated a few times regarding this injury and has had negative x-rays. She is pursuing a referral to an orthopedic office incur cleaned. She is here today for an MRI of her elbow. Related Data Home Medications Medication Instructions Recorded Confirmed cholecalciferol (vitamin D3) 50 2,000 iu PO DAILY #0 04/11/11 06/26/19 mcg (2,000 unit) capsule (Vitamin D3) omega 0-uce-bqi-fish oil 1,000 mg 1 cap PO DAILY #0 04/11/11 06/26/19 (120 mg-180 mg) capsule (Fish Oil) vitamin E 400 unit capsule 400 unit PO DAILY #0 04/11/11 06/26/19 mupirocin 2 % topical ointment 1 applic TOPICAL BID 09/04/18 06/26/19 ascorbic acid (vitamin C) 250 mg 1,000 mg PO DAILY 06/26/19 06/26/19 chewable tablet (Vitamin C) Previous Rx's Medication Instructions Recorded acetaminophen 300 mg-codeine 30 mg 1 tab PO Q4-6H PRN #30 tab 07/01/19 tablet (Tylenol-Codeine #3) docusate sodium 100 mg capsule 200 mg PO DAILY #20 cap 07/01/19 (DOK) Hospital Bed #1 ea 07/02/19 Allergies Allergy/AdvReac Type Severity Reaction Status Date / Time amoxicillin [AMOXICILLIN] Allergy Intermediate Verified 06/26/19 10:39 aspirin [ASPIRIN] Allergy Intermediate Verified 06/26/19 10:39 clindamycin [CLINDAMYCIN] Allergy Intermediate Verified 06/26/19 10:39 doxycycline [DOXYCYCLINE] Allergy Intermediate Verified 06/26/19 10:39 erythromycin base Allergy Intermediate Verified 06/26/19 10:39 [From ERYTHROCIN] Penicillins [PENICILLINS] Allergy Intermediate Verified 06/26/19 10:39 albuterol Allergy Unknown Verified 06/26/19 10:39 hydrocodone AdvReac Intermediate Verified 06/26/19 12:38 ibuprofen AdvReac Intermediate Verified 06/26/19 12:36 prednisone AdvReac Mild Verified 06/26/19 12:36 Review of Systems Review of Systems Narrative: GENERAL: Denies chills, fatigue, malaise, fever, sweats. HEENT: Denies sinus pain, ear pain, sore throat, difficulty swallowing, dizziness. RESPIRATORY: Denies dyspnea, cough, wheezing, hemoptysis, sputum. CARDIOVASCULAR: Denies chest pain, palpitations, orthopnea, edema, GASTROINTESTINAL: Denies nausea, vomiting, abdominal pain, diarrhea, constipation, melena. : Denies dysuria, frequency, incontinence, hematuria, urinary retention. MUSCULOSKELETAL: See HPI SKIN: Denies rash, skin lesions, or other NEUROLOGIC: See HPI PSYCHIATRIC: No concerning psychosocial issues. 12 point review of systems is negative except for those stated above Patient History Medical History Cataract of left eye Cataract of right eye Cyst of bone of left hand Fracture dislocation of right wrist Fracture of left ankle Fracture of left upper extremity Fracture of right wrist with delayed healing H/O chronic cholecystitis Healthy adult Herniated nucleus pulposus, L5-S1 No pertinent family history Scoliosis Surgical History History of hysterectomy No pertinent past surgical history Social History household members: none Smoking Status: Never smoker alcohol intake: current Smoking Status: Never smoker alcohol intake frequency: 3 or more drinks per day Substance Use Type: does not use Exam Narrative Exam Narrative: GEN: AOx3 and in mild distress EYES: Pupils are equal, round, and reactive to light and accommodation. Extraoccular muscles are intact bilaterally. There is no subconjunctival hemorrhage or exudate. CHEST: Lungs are clear to auscultation bilaterally and free of wheezes, rales, or rhonchi. Heart rate is regular rhythm, there are no murmurs, clicks, rubs, or gallops. There is no chest wall tenderness. ABD: Abdomen is soft and nontender. There is no guarding or rebound. Bowel sounds are normal in all 4 quadrants. There is no mass or organomegaly. EXT: Full but painful range of motion right elbow with tenderness over the extensor what at the lateral elbow. Very minimal edema, no erythema or warmth. No fluctuance or induration. SKIN: Warm, pink, and dry. No erythema or rash Initial Vital Signs Initial Vital Signs: Vital Signs Temperature 98.5 F 03/02/21 13:25 Pulse Rate 86 03/02/21 13:25 Respiratory Rate 18 03/02/21 13:25 Blood Pressure 135/76 03/02/21 13:25 Pulse Oximetry 96 03/02/21 13:25 Course Orders Ordered: ED Orders 03/02/21 13:29 XR elbow RT min 3V Stat Vital Signs Vital signs: Vital Signs - 8 hr 03/02/21 13:25 Temperature 98.5 F Pulse Rate 86 Respiratory Rate 18 Blood Pressure 135/76 Pulse Oximetry 96 MDM - Extremity Injury (Upper) Imaging Data Extremity x-ray #1: Radiologist's Impression: ChikaKaur??50??F??1970 ? Allergy/Adv: amoxicillin, aspirin, clindamycin, doxycycline, erythromycin base, Penicillins, albuterol, hydrocodone, ibuprofen, prednisone (More??) Close Elbow X-Ray (Signed) Tesfaye Manuel - 03/02/21 Hip MRI (Signed) Aleksander Acosta - 06/30/19 Hip X-Ray (Signed) Aleksander Acosta - 06/29/19 Knee X-Ray (Signed) Jasper Pompa - 06/26/19 Chest X-Ray (Signed) Beth Flaherty - 02/04/19 Ribs X-Ray (Signed) Martha Cavanaugh - 09/04/18 Vascular Ultrasound (Signed) Regina Schwartz - 07/02/[address] (Signed) Pretty Jerry - 12/07/17 Foot MRI (Signed) Sunil Naik - 11/20/17 Launch?[address] [address] XRay Report Signed Patient: ChikaKaur Feng MR#: [id number] : 1970 Acct:[id number] Age/Sex: 50 / F Date of Service: 03/02/21 Loc: ED Accession Number: [id number] ?? Procedure: XR elbow RT min 3V Ordering Provider: Tiff Piña D.O. PROCEDURE:? XR ELBOW RT MIN 3V ? INDICATIONS:? struck right elbow several months ago, worsening pain ? TECHNIQUE:? 3 views of the elbow were acquired.? ? COMPARISON:? None. ? FINDINGS:? ? Bones:? No fractures or dislocations.? No suspicious bony lesions.? ? Soft tissues:? No elbow joint effusion.? No suspicious soft tissue calcifications.? ? ? IMPRESSION:? No acute osseous abnormality. ? ? Dictated by: Tesfaye Manuel M.D. on 03/02/2021 at 13:57 ? ? Approved by: Tesfaye Manuel M.D. on 03/02/2021 at 13:58 ? MDM Narrative Medical decision making narrative: Patient has had ongoing pain in her right elbow for quite some time. She has had multiple negative x-rays. She has had trouble establishing with an orthopedist and is here requesting an MRI. I did have a discussion with her about our inability to obtain an MRI given this complaint and the chronicity of her symptoms. Multiple diagnoses considered including occult fracture, contusion, much less likely osteomyelitis and other. Patient has been given return precautions and questions answered to her apparent satisfaction Discharge Plan Departure Patient Disposition: Home Clinical Impression: Chronic pain of right elbow Instructions: DI for Elbow Pain Activity Restrictions/Additional Instructions: *You have been diagnosed with [chronic elbow pain from injury. No evidence of fracture based on today's x-ray *What to do: *Please continue to take your regular medications as directed. [ ] New medication prescriptions sent to your pharmacy: [ ] [ ] New medication written as a paper prescription [x ] No new medications given * please follow-up with Dr. Mancilla of [facility]. Please call their office at the number listed below and let them know you were seen in the emergency department and we want you to be seen in follow-up. I have electronically transmitted a copy of today's record to this office on your behalf *If you do not have a primary care provider please contact the [facility] Resource line at [phone]. They will ask some questions about your medical history and help get you set up with a doctor in the community. *Return to Emergency Department if you should have any new, worsening or concerning symptoms, such as [fever greater than 101 F, shaking chills, worsening pain, persistent vomiting or other bothersome symptoms] Prescriptions: No Action vitamin E 400 unit Capsule 400 unit PO DAILY Qty: 0 RF: 0 cholecalciferol (vitamin D3) [Vitamin D3] 2,000 UNIT capsule 2,000 iu PO DAILY Qty: 0 RF: 0 omega 9-wkv-ddc-fish oil [Fish Oil] 1,000 mg (120 mg-180 mg) Capsule 1 cap PO DAILY Qty: 0 RF: 0 mupirocin 2 % ointment 1 applic topical BID RF: 0 ascorbic acid (vitamin C) [Vitamin C] 250 mg Tablet,Chewable 1,000 mg PO DAILY RF: 0 docusate sodium [DOK] 100 mg Capsule 200 mg PO DAILY Qty: 20 RF: 0 acetaminophen-codeine [Tylenol-Codeine #3] 300-30 mg tablet 1 tab PO Q4-6H PRN (Reason: pain) Qty: 30 RF: 0 (DME) Hospital Bed Qty: 1 RF: 0 Referrals: Citlali Earl MD [Primary Care Provider] - Joe Mancilla MD [Physician] -
== END 2021-03-02 16:05 | disposition home or self-care (01) ==
PROVIDERS: Emergency Provider Emergency Medicine; PCP Orthopaedic Surgery Foot and Ankle Surgery
DX: G89.29 Other chronic pain (principal); M25.521 Pain in right elbow
CPT/HCPCS: 73080; 99281; 99283

== ENCOUNTER 2022-02-10 13:51 | Emergency (ER) | payer OTHER, MEDICAID, SELFPAY ==
[2019-06-26 11:51] VITALS: BMI 33.1
[2022-02-10 14:09] VITALS: BP 162/85; PULSE 75; RESP 16; TEMP 36; O2SAT 100; BMI 32.1
--- NOTE | 2022-02-10 14:14 | DI.RAD.S_ITS ---
PROCEDURE: XR CHEST 1V INDICATIONS: foreign body/possible food bolus RICE! TECHNIQUE: One view of the chest was acquired. COMPARISON: [facility], CR, XR CHEST 1V, 02/04/2019, 17:50. FINDINGS: Surgical changes and devices: None. Lungs and pleura: Lungs are clear. No pleural effusions or pneumothorax. Mediastinum: Mediastinal contours appear normal. Heart size is normal. Bones and chest wall: No suspicious bony lesions. Overlying soft tissues appear unremarkable. IMPRESSION: No acute cardiopulmonary findings. Dictated by: Regina Schwartz M.D. on 02/10/2022 at 15:11 Approved by: Regina Schwartz M.D. on 02/10/2022 at 15:11
--- NOTE | 2022-02-10 14:47 | PC.NURSE ---
Pt reports eating rice last night prepared with a sauce I'm probably allergic to. Reports immediate pain in esophagus radiating across chest immediately after eating rice and reports the rice is stuck. Had neighbor hit her back and then attempted to vomit up the rice, was able to breathe throughout. Drank 2 bottles of water last night and coffee today. Pt reports sleeping on her right side and now I can't breathe through the right side of my esophagus, air isn't moving. Breathing even and unlabored, handling secretions, no swelling noted.
[2022-02-10 14:57] VITALS: PULSE 83; RESP 18; O2SAT 99
--- NOTE | 2022-02-10 15:46 | ED.CHESTPAIN ---
HPI - Chest Pain <Ede Akins PA-C - Last Filed: 02/10/22 15:53> General Chief Complaint: Chest Pain Stated Complaint: States food stuck in esophagus Time Seen by Provider: 02/10/22 14:41 History of Present Illness HPI narrative: This is a 51-year-old female presents to the emergency department due to this sensation of foreign body in the esophagus after eating rice last night. States she feels a pain and pressure in her back and chest when she swallows and feels like the crisis secondary throat. Denies any difficulty breathing or swallowing. No other complaints. Related Data Home Medications Medication Instructions Recorded Confirmed cholecalciferol (vitamin D3) 50 2,000 iu PO DAILY ##0 04/11/11 06/26/19 mcg (2,000 unit) capsule (Vitamin D3) omega 3-eru-bzp-fish oil 1,000 mg 1 cap PO DAILY ##0 04/11/11 06/26/19 (120 mg-180 mg) capsule (Fish Oil) vitamin E 268 mg (400 unit) capsule 400 unit PO DAILY ##0 04/11/11 06/26/19 mupirocin 2 % topical ointment 1 applic topical BID 09/04/18 06/26/19 ascorbic acid (vitamin C) 250 mg 1,000 mg PO DAILY 06/26/19 06/26/19 chewable tablet (Vitamin C) Previous Rx's Medication Instructions Recorded acetaminophen 300 mg-codeine 30 mg 1 tab PO Q4-6H PRN pain #30 tabs 07/01/19 tablet (Tylenol-Codeine #3) docusate sodium 100 mg capsule 200 mg PO DAILY #20 caps 07/01/19 (DOK) Hospital Bed #1 ea 07/02/19 Allergies Allergy/AdvReac Type Severity Reaction Status Date / Time amoxicillin [AMOXICILLIN] Allergy Intermediate Verified 06/26/19 10:39 aspirin [ASPIRIN] Allergy Intermediate Verified 06/26/19 10:39 clindamycin [CLINDAMYCIN] Allergy Intermediate Verified 06/26/19 10:39 doxycycline [DOXYCYCLINE] Allergy Intermediate Verified 06/26/19 10:39 erythromycin base Allergy Intermediate Verified 06/26/19 10:39 [From ERYTHROCIN] Penicillins [PENICILLINS] Allergy Intermediate Verified 06/26/19 10:39 albuterol Allergy Unknown Verified 02/10/22 14:46 azithromycin Allergy Verified 02/10/22 14:09 Sulfa (Sulfonamide Allergy Verified 02/10/22 14:09 Antibiotics) hydrocodone AdvReac Intermediate Verified 06/26/19 12:38 ibuprofen AdvReac Intermediate Verified 06/26/19 12:36 prednisone AdvReac Mild Verified 06/26/19 12:36 Review of Systems <Ede Akins PA-C - Last Filed: 02/10/22 15:53> Review of Systems Narrative: GENERAL: Denies chills, fatigue, malaise, fever, sweats. HEENT: Denies sinus pain, ear pain, sore throat, difficulty swallowing, dizziness. RESPIRATORY: Denies dyspnea, cough, wheezing, hemoptysis, sputum. CARDIOVASCULAR: Denies chest pain, palpitations, orthopnea, edema, GASTROINTESTINAL: Reports foreign body sensation, Denies nausea, vomiting, abdominal pain, diarrhea, constipation, melena. : Denies dysuria, frequency, incontinence, hematuria, urinary retention. MUSCULOSKELETAL: denies weakness, joint pain, or bony pain SKIN: Denies rash, skin lesions, or other NEUROLOGIC: Denies weakness, headache, numbness, change in speech, confusion, seizures, incoordination. PSYCHIATRIC: No concerning psychosocial issues. 12 point review of systems is negative except for those stated above Patient History <Ede Akins PA-C - Last Filed: 02/10/22 15:53> Medical History (Updated 02/10/22 @ 15:53 by Ede Akins PA-C) Cataract of left eye Cataract of right eye Cyst of bone of left hand Fracture dislocation of right wrist Fracture of left ankle Fracture of left upper extremity Fracture of right wrist with delayed healing H/O chronic cholecystitis Healthy adult Herniated nucleus pulposus, L5-S1 No pertinent family history Scoliosis Surgical History History of hysterectomy No pertinent past surgical history Social History household members: none Smoking Status: Never smoker alcohol intake: current Smoking Status: Never smoker alcohol intake frequency: 3 or more drinks per day Substance Use Type: does not use Exam <Ede Akins PA-C - Last Filed: 02/10/22 15:53> Narrative Exam Narrative: GENERAL: Well-developed patient, in mild distress. HEAD: Atraumatic. Normocephalic. EYES: Pupils equal round and reactive. Extraocular motions intact. No scleral icterus. No injection or drainage. ENT: Nose without bleeding, purulent drainage. Throat without erythema, tonsillar hypertrophy or exudate. Airway patent. NECK: Trachea midline. Non tender CARDIOVASCULAR: Regular rate and rhythm without murmurs, gallops, or rubs. RESPIRATORY: Clear to auscultation. Breath sounds equal bilaterally. No wheezes, rales, or rhonchi. GASTROINTESTINAL: Abdomen soft, non-tender, nondistended. EXTREMITIES: No edema or joint tenderness. BACK: Nontender without deformity or crepitance. No flank tenderness. NEURO: AOx3. SKIN: No rash or erythema of visible areas Initial Vital Signs Initial Vital Signs: Vital Signs Temperature 96.8 F L 02/10/22 14:09 Pulse Rate 75 02/10/22 14:09 Respiratory Rate 16 02/10/22 14:09 Blood Pressure 162/85 H 02/10/22 14:09 Pulse Oximetry 100 02/10/22 14:09 Oxygen Delivery Method 02/10/22 14:09 <Roman Lincoln MD - Last Filed: 02/23/22 22:25> Initial Vital Signs Initial Vital Signs: Vital Signs Temperature 96.8 F L 02/10/22 14:09 Pulse Rate 75 02/10/22 14:09 Respiratory Rate 16 02/10/22 14:09 Blood Pressure 162/85 H 02/10/22 14:09 Pulse Oximetry 100 02/10/22 14:09 Oxygen Delivery Method 02/10/22 14:09 Course <Ede Akins PA-C - Last Filed: 02/10/22 15:53> Orders Ordered: ED Orders 02/10/22 14:14 XR chest 1V Stat Vital Signs Vital signs: Vital Signs - 8 hr 02/10/22 14:09 02/10/22 14:57 Temperature 96.8 F L Pulse Rate 75 83 Respiratory Rate 16 18 Blood Pressure 162/85 H Pulse Oximetry 100 99 Oxygen Delivery Method Room Air Room Air <Roman Lincoln MD - Last Filed: 02/23/22 22:25> Orders Ordered: ED Orders 02/10/22 14:14 XR chest 1V Stat Vital Signs Vital signs: Vital Signs - 8 hr 02/10/22 14:09 02/10/22 14:57 Temperature 96.8 F L Pulse Rate 75 83 Respiratory Rate 16 18 Blood Pressure 162/85 H Pulse Oximetry 100 99 Oxygen Delivery Method Room Air Room Air MDM - Chest Pain <Ede Akins PA-C - Last Filed: 02/10/22 15:53> Imaging Data Chest x-ray: Radiologist's Impression: [address] [id number] ReportSigned Patient: Kaur Farr [facility]#: [id number]: 1970Acct:[id number]/Sex: 51 / FDate of Service: 02/10/22Loc: EDAccession Number: [id number] Procedure: XR chest 1V Ordering Provider: Roman Lincoln MD PROCEDURE: XR CHEST 1V INDICATIONS: foreign body/possible food bolus RICE! TECHNIQUE: One view of the chest was acquired. COMPARISON: [facility], , XR CHEST 1V, 02/04/2019, 17:50. FINDINGS: Surgical changes and devices: None. Lungs and pleura: Lungs are clear. No pleural effusions or pneumothorax. Mediastinum: Mediastinal contours appear normal. Heart size is normal. Bones and chest wall: No suspicious bony lesions. Overlying soft tissues appear unremarkable. IMPRESSION: No acute cardiopulmonary findings. Dictated by: Regina Schwartz M.D. on 02/10/2022 at 15:11 Approved by: Regina Schwartz M.D. on 02/10/2022 at 15:11 [facility] Narrative Medical decision making narrative: This is a 51-year-old female presents emergency department due to a foreign body sensation after eating rice yesterday. Chest x-ray showed no acute abnormalities. Patient is still able to swallow and breathe and felt comfortable discharging her with instructions to follow up with GI for possible EGD of the sensation continues. No visible foreign bodies on exam. Discharge Plan Departure Patient Disposition: Home Clinical Impression: Foreign body sensation in throat Instructions: DI for Foreign Body, Swallowed-Adult Activity Restrictions/Additional Instructions: Thank you for coming to the [facility] Emergency Department today. As we discussed the chest x-ray shows no visible foreign bodies. Please continue doing the exercises your research to help with the sensation. Please continue a soft liquid diet. Follow-up with GI is information is attached for possible endoscopy if symptoms continue. I hope you feel better soon. Prescriptions: No Action vitamin E 400 unit Capsule 400 unit PO DAILY Qty: 0 Rx Instructions: No longer takes cholecalciferol (vitamin D3) [Vitamin D3] 2,000 UNIT capsule 2,000 iu PO DAILY Qty: 0 omega 0-jgb-eth-fish oil [Fish Oil] 1,000 mg (120 mg-180 mg) Capsule 1 cap PO DAILY Qty: 0 Label Comments: patient states has not taken for months but wants to start taking again. 07/02/18 mupirocin 2 % ointment 1 applic topical BID ascorbic acid (vitamin C) [Vitamin C] 250 mg Tablet,Chewable 1,000 mg PO DAILY docusate sodium [DOK] 100 mg Capsule 200 mg PO DAILY Qty: 20 0RF acetaminophen-codeine [Tylenol-Codeine #3] 300-30 mg tablet 1 tab PO Q4-6H PRN (Reason: pain) Qty: 30 0RF (DME) Hospital Bed Qty: 1 0RF Rx Instructions: 1 hospital air bed Duration 3 months. DX S82.001A DX M51.26 Referrals: Roman Gallardo MD [Primary Care Provider] - Arsenio Sanabria MD [Physician] - (Referring for possible EGD to examine foreign body sensation ) Visit Report Forms: Patient Portal/API <Roman Lincoln MD - Last Filed: 02/23/22 22:25> Cosign ED Attending Cosignature Attestation: I was immediately available in the department for consultation. ?This documentation has been reviewed and I agree with assessment and plan. Supervised by Roman Lincoln MD
[2022-02-10 16:00] VITALS: BP 155/73; PULSE 76; RESP 16; O2SAT 100
== END 2022-02-10 16:02 | disposition home or self-care (01) ==
PROVIDERS: Emergency Provider Physician Assistant Medical; PCP Internal Medicine
DX: R09.89 Other specified symptoms and signs involving the circulatory and respiratory systems (principal)
CPT/HCPCS: 71045; 99283

== ENCOUNTER 2022-06-09 13:59 | Emergency (ER) | payer OTHER, MEDICAID, SELFPAY ==
[2019-06-26 11:51] VITALS: BMI 33.1
[2022-06-09] VITALS (9 sets, daily range): BP systolic 110–142; BP diastolic 72–89; PULSE 72–92; RESP 14–26; TEMP 36.7; O2SAT 94–98; BMI 34.1
--- NOTE | 2022-06-09 14:06 | DI.RAD.S_ITS ---
PROCEDURE: XR CHEST 1V INDICATIONS: Shortness of breath TECHNIQUE: One view of the chest was acquired. COMPARISON: [facility], CR, XR CHEST 1V, 02/10/2022, 14:44. FINDINGS: Surgical changes and devices: None. Lungs and pleura: Lungs are clear. No pleural effusions or pneumothorax. Mediastinum: Mediastinal contours appear normal. Heart size is normal. Bones and chest wall: No suspicious bony lesions. Overlying soft tissues appear unremarkable. IMPRESSION: No acute process. Dictated by: Susan Greene M.D. on 06/09/2022 at 14:45 Approved by: Susan Greene M.D. on 06/09/2022 at 14:45
[2022-06-09 14:31] LABS: Add Manual Diff / Slide Review NO; Basophils Absolute Auto 0 /uL (0-100); Basophils Percent Auto 0.4 % (0-2); Eosinophils Absolute Auto 100 /uL (0-450); Eosinophils Percent Auto 1.5 % (2-4); Hematocrit 44.2 % (36-46); Hemoglobin 15.2 g/dL (12.0-16.0); Lymphocytes Absolute Auto 1600 /uL (1100-4500); Lymphocytes Percent Auto 24.4 % (25-40); Mean Corpuscular HGB Conc 34.5 % (30-36); Mean Corpuscular Volume 95.7 fL (80-100); Monocytes Absolute Auto 700 /uL (0-900); Monocytes Percent Auto 10.9 % (3-14); Neutrophils Absolute Auto 4100 /uL (1500-7000); Neutrophils Percent Auto 62.8 % (50-75); Platelet Count 242 X10^3/uL (150-400); Red Blood Cell Count 4.61 X10^6/uL (4.0-5.2); Red Cell Distribution Width 12.4 % (11.6-14.8); White Blood Cell Count 6.5 X10^3/uL (4.5-11.0)
[2022-06-09 14:45] LABS: Lactate (Lactic Acid) 1.7 mmol/L (0.7-2.1); Prothrombin Time 11.7 SECONDS (10.1-12.7)
[2022-06-09 14:46] LABS: Alanine Aminotransferase 34 IU/L (<35); Albumin 4.4 g/dL (3.5-5.0); Albumin Globulin Ratio 1.2 (1.0-2.8); Alkaline Phosphatase 83 U/L (38-126); Aspartate Aminotransferase 41 IU/L (14-36); BUN Creatinine Ratio 11.5 (6-22); Blood Urea Nitrogen 6 mg/dL (7-17); Calcium 9.2 mg/dL (8.4-10.2); Carbon Dioxide 30 mmol/L (22-32); Chloride 102 mmol/L (98-107); Estimated Glomerular Filt Rate > 60 mL/min (>60); Globulin 3.7 g/dL (1.7-4.1); Glucose 84 mg/dL (70-100); HEMOLYSIS 116 (0-50); Sodium 140 mmol/L (137-145); Total Protein 8.1 g/dL (6.3-8.2)
[2022-06-09 14:47] LABS: Potassium 4.7 mmol/L (3.4-5.1)
[2022-06-09 14:58] LABS: NT-proBNP (BNP-Adult 18+) 48 pg/mL (<125); Troponin I < 0.012 ng/mL (0.01-0.034)
--- NOTE | 2022-06-09 15:28 | ED.SOB ---
HPI - SOB/Dyspnea <Philly Reis, [facility] - Last Filed: 06/09/22 17:40> General Chief Complaint: Shortness of Breath/Dyspnea Stated Complaint: thinks she has a blod clot in RT leg/heart vibe Time Seen by Provider: 06/09/22 15:20 Source: patient Mode of arrival: Ambulatory Limitations: no limitations History of Present Illness HPI Narrative: This is a 51-year-old female who presents to the emergency department complaining of waking up with shortness of breath daily denies exertional shortness of breath. Patient states 3 days ago she called EMS for chest pain, she denies history of blood clots, she is not anticoagulated, denies history of asthma or COPD, states that she is allergic to everything and has chronic right knee pain since her right knee surgery 2 years ago. States that 2 days ago she felt a pop in the back of her knee and then woke up with edema to her lower leg on the anterior aspect, she states that it resolved over the next 2 days, did not have ecchymosis, a wound, she states that the temperature her leg has been warm over the last 2 days but she is had virus 6 months of her feet being cold at nighttime. Related Data Home Medications Medication Instructions Recorded Confirmed cholecalciferol (vitamin D3) 50 2,000 iu PO DAILY ##0 04/11/11 06/26/19 mcg (2,000 unit) capsule (Vitamin D3) omega 0-goj-zfm-fish oil 1,000 mg 1 cap PO DAILY ##0 04/11/11 06/26/19 (120 mg-180 mg) capsule (Fish Oil) vitamin E 268 mg (400 unit) capsule 400 unit PO DAILY ##0 04/11/11 06/26/19 mupirocin 2 % topical ointment 1 applic topical BID 09/04/18 06/26/19 ascorbic acid (vitamin C) 250 mg 1,000 mg PO DAILY 06/26/19 06/26/19 chewable tablet (Vitamin C) Previous Rx's Medication Instructions Recorded acetaminophen 300 mg-codeine 30 mg 1 tab PO Q4-6H PRN pain #30 tabs 07/01/19 tablet (Tylenol-Codeine #3) docusate sodium 100 mg capsule 200 mg PO DAILY #20 caps 07/01/19 (DOK) Hospital Bed #1 ea 07/02/19 Allergies Allergy/AdvReac Type Severity Reaction Status Date / Time amoxicillin [AMOXICILLIN] Allergy Intermediate Anaphylaxis Verified 06/09/22 14:19 aspirin [ASPIRIN] Allergy Intermediate Swelling Verified 06/09/22 14:19 of Lip/Tongue/Throat clindamycin [CLINDAMYCIN] Allergy Intermediate Anaphylaxis Verified 06/09/22 14:19 doxycycline [DOXYCYCLINE] Allergy Intermediate Blister Verified 06/09/22 14:19 erythromycin base Allergy Intermediate Palpitation Verified 06/09/22 14:19 [From ERYTHROCIN] s Penicillins [PENICILLINS] Allergy Intermediate Anaphylaxis Verified 06/09/22 14:19 albuterol Allergy Unknown Verified 06/09/22 14:19 azithromycin Allergy Verified 02/10/22 14:09 levofloxacin [From Levaquin] Allergy Verified 06/09/22 14:19 Sulfa (Sulfonamide Allergy Difficulty Verified 06/09/22 14:19 Antibiotics) Breathing hydrocodone AdvReac Intermediate Verified 06/26/19 12:38 ibuprofen AdvReac Intermediate Swelling Verified 06/09/22 14:19 of Lip/Tongue/Throat prednisone AdvReac Mild Verified 06/26/19 12:36 Patient History <OZZIE Dunham - Last Filed: 06/09/22 17:40> Medical History (Updated 06/09/22 @ 17:40 by OZZIE Dunham) Cataract of left eye Cataract of right eye Cyst of bone of left hand Fracture dislocation of right wrist Fracture of left ankle Fracture of left upper extremity Fracture of right wrist with delayed healing H/O chronic cholecystitis Healthy adult Herniated nucleus pulposus, L5-S1 No pertinent family history Scoliosis Surgical History History of hysterectomy No pertinent past surgical history Social History household members: none Smoking Status: Never smoker alcohol intake: current Smoking Status: Never smoker alcohol intake frequency: 3 or more drinks per day Substance Use Type: does not use Exam <OZZIE Dunham - Last Filed: 06/09/22 17:40> Narrative Exam Narrative: Reviewed vitals signs and nursing notes. General: cooperative, comfortable, in no acute distress, well groomed, without acute distress or obvious abnormality HEENT: symmetrical facial expressions, moist mucous membranes Cardiovascular: regular rate and rhythm, no peripheral edema, warm extremities Respiratory: normal effort, breath sounds clear throughout win, speaking frequently and for long periods of time in complete sentences, without wheezing, stridor, or abnormal breath sounds. No retractions or tachypnea. GI: abdomen soft, nontender to palpation, nondistended, without masses, rebound tenderness or exquisite tenderness with exam. MSK: moves all extremities, neurovascularly intact, no weakness, normal tone, no edema to bilateral lower extremities, full range of motion of lower extremities, ambulatory without deficit, no evidence of signs of DVT, no erythema or exquisite tenderness, no tenderness over lumbar spine, no acute trauma or recent injury Skin: brisk capillary refill, without pallor or erythema Neuro: normal speech and cognition, A&O x3, ambulatory, clear speech Psych: mental status is grossly normal, congruent mood, normal affect, pleasant and cooperative Initial Vital Signs Initial Vital Signs: Vital Signs Pulse Rate 92 H 06/09/22 14:04 Blood Pressure 142/89 H 06/09/22 14:04 Pulse Oximetry 97 06/09/22 14:04 <Raquel Brice DO - Last Filed: 06/17/22 07:38> Initial Vital Signs Initial Vital Signs: Vital Signs Pulse Rate 92 H 06/09/22 14:04 Blood Pressure 142/89 H 06/09/22 14:04 Pulse Oximetry 97 06/09/22 14:04 Scores <OZZIE Dunham - Last Filed: 06/09/22 17:40> PERC Score Age greater than or equal to 50 years: Yes Heart rate greater than or equal to 100 bpm: No Room Air O2 Sat less than 95%: No Unilateral leg swelling: No Recent trauma or surgery: No Hemoptysis: No Prior PE or DVT: No Hormone Use: No Total PERC Score: 1 Wells' Criteria for PE Clinical signs and symptoms of DVT: No PE is #1 Dx or equally likely: No Heart rate > 100: No Immobilization at least 3 days or surg in previous 4 weeks: No History of PE or DVT: No Hemoptysis: No Malignancy w/Treatment within 6 months or palliative: No Wells' PE Score total: 0 Wells' Criteria for DVT Active Cancer (Treatment within 6 months): No Bedridden recently >3 days or major surgery within 4 weeks: No Calf Swelling >3cm compared to other leg: No Collateral (nonvericose) superficial veins present: No Entire leg swollen: No Localized tenderness along the deep vein system: No Pitting edema, confined to symtomatic leg: No Paralysis, paresis, or recent plaster immobilization of ext: No Previously documented DVT: No Alternative dx to DVT as likely or more likely: No Gonzalo' criteria for DVT: 0 <Raquel Brice DO - Last Filed: 06/17/22 07:38> PERC Score Total PERC Score: 1 Wells' Criteria for PE Wells' PE Score total: 0 Wells' Criteria for DVT Wells' criteria for DVT: 0 Course <OZZIE Dunham - Last Filed: 06/09/22 17:40> Orders Ordered: Discontinued Medications Acetaminophen (Acetaminophen 325 Mg Tablet) 975 mg PO NOW ONE Stop: 06/09/22 16:59 Last Admin: 06/09/22 17:14 Dose: Not Given Documented By: AT Vital Signs Vital signs: Vital Signs - 8 hr 06/09/22 14:11 06/09/22 14:04 06/09/22 14:04 Temperature 98.1 F Pulse Rate 90 92 H Respiratory Rate 18 Blood Pressure 142/89 H 142/89 H Pulse Oximetry 98 97 Oxygen Delivery Method Room Air 06/09/22 14:30 06/09/22 14:30 06/09/22 15:00 Temperature Pulse Rate 80 Respiratory Rate 23 Blood Pressure 116/72 115/73 Pulse Oximetry 95 Oxygen Delivery Method 06/09/22 15:00 06/09/22 15:30 06/09/22 15:30 Temperature Pulse Rate 78 80 Respiratory Rate 14 26 H Blood Pressure 110/75 Pulse Oximetry 97 97 Oxygen Delivery Method 06/09/22 16:36 06/09/22 17:00 Temperature Pulse Rate 72 84 Respiratory Rate 23 26 H Blood Pressure Pulse Oximetry 94 Oxygen Delivery Method Room Air <Raquel Brice DO - Last Filed: 06/17/22 07:38> Orders Ordered: Discontinued Medications Acetaminophen (Acetaminophen 325 Mg Tablet) 975 mg PO NOW ONE Stop: 06/09/22 16:59 Last Admin: 06/09/22 17:14 Dose: Not Given Documented By: AT Vital Signs Vital signs: Vital Signs - 8 hr 06/09/22 14:11 06/09/22 14:04 06/09/22 14:04 Temperature 98.1 F Pulse Rate 90 92 H Respiratory Rate 18 Blood Pressure 142/89 H 142/89 H Pulse Oximetry 98 97 Oxygen Delivery Method Room Air 06/09/22 14:30 06/09/22 14:30 06/09/22 15:00 Temperature Pulse Rate 80 Respiratory Rate 23 Blood Pressure 116/72 115/73 Pulse Oximetry 95 Oxygen Delivery Method 06/09/22 15:00 06/09/22 15:30 06/09/22 15:30 Temperature Pulse Rate 78 80 Respiratory Rate 14 26 H Blood Pressure 110/75 Pulse Oximetry 97 97 Oxygen Delivery Method 06/09/22 16:36 06/09/22 17:00 Temperature Pulse Rate 72 84 Respiratory Rate 23 26 H Blood Pressure Pulse Oximetry 94 Oxygen Delivery Method Room Air MDM - SOB/Dyspnea <PERLA DunhamP - Last Filed: 06/09/22 17:40> Lab Data 06/09/22 14:18 06/09/22 14:18 Labs: Lab Results 06/09/22 06/09/22 06/09/22 Range/Units 14:18 14:18 14:18 WBC 6.5 (4.5-11.0) X10^3/uL RBC 4.61 (4.0-5.2) X10^6/uL Hgb 15.2 (12.0-16.0) g/dL Hct 44.2 (36-46) % MCV 95.7 (80-100) fL MCH 33.0 (26-34) PG MCHC 34.5 (30-36) % RDW 12.4 (11.6-14.8) % Plt Count 242 (150-400) X10^3/uL Neut % (Auto) 62.8 (50-75) % Lymph % (Auto) 24.4 L (25-40) % [place] % (Auto) 10.9 (3-14) % Eos % (Auto) 1.5 L (2-4) % Baso % (Auto) 0.4 (0-2) % Neut # (Auto) 4100 (8783-2308) /uL Lymph # (Auto) 1600 (3038-0375) /uL [place] # (Auto) 700 (0-900) /uL Eos # (Auto) 100 (0-450) /uL Baso # (Auto) 0 (0-100) /uL PT 11.7 (10.1-12.7) SECONDS INR 1.0 (0.9-1.3) D-Dimer (<500) ng/ml Sodium 140 (137-145) mmol/L Potassium 4.7 (3.4-5.1) mmol/L Chloride 102 (98-107) mmol/L Carbon Dioxide 30 (22-32) mmol/L BUN 6 L (7-17) mg/dL Creatinine 0.52 (0.52-1.04) mg/dL Estimated GFR > 60 (>60) mL/min BUN/Creatinine Ratio 11.5 (6-22) Glucose 84 (70-100) mg/dL Lactate (0.7-2.1) mmol/L Calcium 9.2 (8.4-10.2) mg/dL Total Bilirubin 1.0 (0.2-1.3) mg/dL AST 41 H (14-36) IU/L ALT 34 (<35) IU/L Alkaline Phosphatase 83 (38-126) U/L Troponin I < 0.012 (0.01-0.034) ng/mL NT-Pro-B Natriuret Pep 48 (<125) pg/mL Total Protein 8.1 (6.3-8.2) g/dL Albumin 4.4 (3.5-5.0) g/dL Globulin 3.7 (1.7-4.1) g/dL Albumin/Globulin Ratio 1.2 (1.0-2.8) TSH (0.47-4.68) uIU/mL Urine RBC (0-5/HPF) Urine WBC (0-5/HPF) Ur Squamous Epith Cells (0-5/HPF) Urine Bacteria (None) Ur Culture Indicated? SARS-CoV-2 (PCR) (Negative) Influenza A (RT-PCR) (NEGATIVE) Influenza B (RT-PCR) (NEGATIVE) RSV (PCR) (Negative) 06/09/22 06/09/22 06/09/22 Range/Units 14:18 15:28 16:03 WBC (4.5-11.0) X10^3/uL RBC (4.0-5.2) X10^6/uL Hgb (12.0-16.0) g/dL Hct (36-46) % MCV (80-100) fL MCH (26-34) PG MCHC (30-36) % RDW (11.6-14.8) % Plt Count (150-400) X10^3/uL Neut % (Auto) (50-75) % Lymph % (Auto) (25-40) % [place] % (Auto) (3-14) % Eos % (Auto) (2-4) % Baso % (Auto) (0-2) % Neut # (Auto) (7169-1868) /uL Lymph # (Auto) (7771-3161) /uL [place] # (Auto) (0-900) /uL Eos # (Auto) (0-450) /uL Baso # (Auto) (0-100) /uL PT (10.1-12.7) SECONDS INR (0.9-1.3) D-Dimer 266 (<500) ng/ml Sodium (137-145) mmol/L Potassium (3.4-5.1) mmol/L Chloride (98-107) mmol/L Carbon Dioxide (22-32) mmol/L BUN (7-17) mg/dL Creatinine (0.52-1.04) mg/dL Estimated GFR (>60) mL/min BUN/Creatinine Ratio (6-22) Glucose (70-100) mg/dL Lactate 1.7 (0.7-2.1) mmol/L Calcium (8.4-10.2) mg/dL Total Bilirubin (0.2-1.3) mg/dL AST (14-36) IU/L ALT (<35) IU/L Alkaline Phosphatase (38-126) U/L Troponin I (0.01-0.034) ng/mL NT-Pro-B Natriuret Pep (<125) pg/mL Total Protein (6.3-8.2) g/dL Albumin (3.5-5.0) g/dL Globulin (1.7-4.1) g/dL Albumin/Globulin Ratio (1.0-2.8) TSH 1.04 (0.47-4.68) uIU/mL Urine RBC (0-5/HPF) Urine WBC (0-5/HPF) Ur Squamous Epith Cells (0-5/HPF) Urine Bacteria (None) Ur Culture Indicated? SARS-CoV-2 (PCR) (Negative) Influenza A (RT-PCR) (NEGATIVE) Influenza B (RT-PCR) (NEGATIVE) RSV (PCR) (Negative) 06/09/22 06/09/22 Range/Units 16:05 16:27 WBC (4.5-11.0) X10^3/uL RBC (4.0-5.2) X10^6/uL Hgb (12.0-16.0) g/dL Hct (36-46) % MCV (80-100) fL MCH (26-34) PG MCHC (30-36) % RDW (11.6-14.8) % Plt Count (150-400) X10^3/uL Neut % (Auto) (50-75) % Lymph % (Auto) (25-40) % [place] % (Auto) (3-14) % Eos % (Auto) (2-4) % Baso % (Auto) (0-2) % Neut # (Auto) (3612-8001) /uL Lymph # (Auto) (0300-7811) /uL [place] # (Auto) (0-900) /uL Eos # (Auto) (0-450) /uL Baso # (Auto) (0-100) /uL PT (10.1-12.7) SECONDS INR (0.9-1.3) D-Dimer (<500) ng/ml Sodium (137-145) mmol/L Potassium (3.4-5.1) mmol/L Chloride (98-107) mmol/L Carbon Dioxide (22-32) mmol/L BUN (7-17) mg/dL Creatinine (0.52-1.04) mg/dL Estimated GFR (>60) mL/min BUN/Creatinine Ratio (6-22) Glucose (70-100) mg/dL Lactate (0.7-2.1) mmol/L Calcium (8.4-10.2) mg/dL Total Bilirubin (0.2-1.3) mg/dL AST (14-36) IU/L ALT (<35) IU/L Alkaline Phosphatase (38-126) U/L Troponin I (0.01-0.034) ng/mL NT-Pro-B Natriuret Pep (<125) pg/mL Total Protein (6.3-8.2) g/dL Albumin (3.5-5.0) g/dL Globulin (1.7-4.1) g/dL Albumin/Globulin Ratio (1.0-2.8) TSH (0.47-4.68) uIU/mL Urine RBC None seen (0-5/HPF) Urine WBC 0-1/hpf (0-5/HPF) Ur Squamous Epith Cells 0-1 /hpf (0-5/HPF) Urine Bacteria None seen (None) Ur Culture Indicated? Cult not indicated SARS-CoV-2 (PCR) Negative (Negative) Influenza A (RT-PCR) Flu a negative (NEGATIVE) Influenza B (RT-PCR) Flu b negative (NEGATIVE) RSV (PCR) Negative (Negative) Urine Dip Bedside Urine Glucose Negative Bedside Urine Bilirubin - Negative Bedside Urine Ketone - Negative Urine Specific [place] 1.010 Bedside Urine Occult Blood - Negative Bedside Urine pH 8.0 Bedside Urine Protein - Negative Bedside Urine Urobilinogen - Negative Bedside Urine Nitrite - Negative Bedside Urine Leukocytes - Negative Esterase Imaging Data Chest x-ray: Radiologist's Impression: PROCEDURE:? XR CHEST 1V ? INDICATIONS:? Shortness of breath ? TECHNIQUE:? One view of the chest was acquired.? ? COMPARISON:? [facility], , XR CHEST 1V, 02/10/2022, 14:44. ? FINDINGS:? ? Surgical changes and devices:? None.? ? Lungs and pleura:? Lungs are clear.? No pleural effusions or pneumothorax.? ? Mediastinum:? Mediastinal contours appear normal.? Heart size is normal.? ? Bones and chest wall:? No suspicious bony lesions.? Overlying soft tissues appear unremarkable.? ? IMPRESSION:? No acute process. ? ? Dictated by: Susan Greene M.D. on 06/09/2022 at 14:45 ? ? Approved by: Susan Greene M.D. on 06/09/2022 at 14:45 ? US - DVT: Radiologist's Impression: PROCEDURE:? US PERIPH VENOUS LOW EXTREM RT ? INDICATIONS:? KNEE PAIN ? TECHNIQUE:? Real-time imaging, as well as color and pulse Doppler interrogation, were performed of the lower extremity deep veins from the inguinal ligament to the popliteal fossa.? ? COMPARISON:? None. ? FINDINGS:? The common femoral, femoral and popliteal veins are normally compressible, and free of intraluminal thrombus.? Color and pulse Doppler demonstrate normal phasic intraluminal flow.? There is normal augmentation response to distal compression maneuver. ? ? IMPRESSION:? No evidence of DVT in visualized right lower extremity veins. ? ? Dictated by: Arturo Mae M.D. on 06/09/2022 at 16:33 ? ? Approved by: Arturo Mae M.D. on 06/09/2022 at 16:34 ? Lumbar spine XR: Radiologist's Impression: PROCEDURE:? XR LUMBAR SPINE 2-3V ? INDICATIONS:? back pain without trauma ? TECHNIQUE:? 3 views of the lumbar spine were acquired.? ? COMPARISON:? None. ? FINDINGS:? ? Bones:? 5 [id number]-[id number] vertebrae are present.? There is mild rightward curvature of lumbar spine with apex at L3 level.? Degenerative endplate changes and bilateral facet arthrosis at L3-4 through L5-S1 levels are seen..? No vertebral body compression fractures.? No suspicious bony lesions.? ? Soft tissues:? Overlying bowel gas pattern is normal.? No suspicious soft tissue calcifications.? ? ? IMPRESSION:? 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 No acute compression fracture or spondylolisthesis. ? ? Dictated by: Arturo Mae M.D. on 06/09/2022 at 16:37 ? ? Approved by: Arturo Mae M.D. on 06/09/2022 at 16:38 ? ECG Data Interpretation: EKG independently reviewed by myself at [1600] reveals normal sinus rhythm at [74] bpm with regular axis and intervals. No STEMI, ST segment changes, arrhythmia, or acute ischemic changes. Mild right bundle-branch with flipped T-waves in V1, V2, no prior EKGs on history. MDM Narrative Medical decision making narrative: Chief Complaint: Multiple complaints, shortness of breath, leg pain on the right, history of back pain with herniated disc at L5 Differential diagnoses include but are not limited to: Upper respiratory viral infection including COVID, influenza, and others,, pneumonia-bacterial or viral, croup, pertussis, asthma/reactive airway exacerbation, allergic reaction, ACS, COPD exacerbation, pneumothorax, asthma, allergic etiologies, infectious etiology like pneumonia, CHF, pericardial effusion, acute PE, pharyngitis, bronchitis, GERD postnasal drip. Respiratory PCR: This patient presents with dyspnea, most likely secondary to viral syndrome or anxiety. Presentation not consistent with acute cardiac etiologies to include ACS (non ischemic ekg, unremarkable trop), CHF, pericardial effusion / tamponade. Presentation not consistent with acute respiratory etiologies to include acute PE (Wells low risk, PERC 1 due to age, pneumothorax, asthma, COPD exacerbation, allergic etiologies, or infectious etiologies such as PNA. Presentation also not consistent with non-cardiopulmonary causes to include toxidromes, metabolic etiologies such as acidemia or electrolyte derangements, sepsis, neurologic causes (i.e. demyelinating diseases). I have reviewed the patient's vital signs and nursing notes as well as prior records if available. Lab test results independently reviewed, pertinent findings: No pertinent findings on exam, patient's workup is overall negative for concerning findings, patient's D-dimer is 266, PE, DVT are unlikely as well as her lower extremity ultrasound DVT is negative for DVT. CMP and CBC are within normal ranges, no elevation to her troponin or CK, respiratory panel remains pending however we will call her if it is positive for influenza or COVID. Respiratory came by and evaluated her peak flow and she does not limited inspiratory effort. She does not have wheezing, decreased breath sounds or increased work of breathing. Patient states that she is allergic to all medications can not have anything although she is not allergic to Tylenol was given 975 for her low back pain with right-sided radiculopathy. Lumbar x-ray does not show acute osseous abnormality but it does show it to disc disease in the mid to lower lumbar spine, no acute compression fracture or spondylolisthesis. Independently reviewed imaging including: Chest x-ray without acute process, vascular ultrasound of right lower extremity for DVT is negative for DVT or other abnormality, lumbar spine x-ray Clinical decision rules or scores evaluated: Wells DVT and PE of 0, perc of 1, Course of care and re-evaluations: Respiratory therapy came and did a peak flow, patient result of 375, only 90 off from prior, no nebulizer indicated, patient with clear breath sounds bilaterally, and good aeration. No ST changes on her EKG other than flipped T-waves in V1 and V2 with mild right bundle-branch block, no prior EKGs to compare to, troponin is negative for elevation Patient was given Tylenol, states that this helped mildly for her pain. Shared decision making: I discussed patient's results with her, printed her results so that she could take them with to her primary care provider, she denies being able to take any medications and states that she is done physical therapy for years and none of it has helped and she does not know what else to do. Patient's symptoms improved over duration of stay with above-stated therapies. Social considerations that may affect disposition: Patient is anxious about her symptoms which she states have gone on for a long time. Questions are addressed and there is agreement with the plan and for follow-up. Patient is appropriate for outpatient management. MIPS: This encounter doesn't have any diagnosis' associated with MIPS criteria. <Raquel Brice, DO - Last Filed: 06/17/22 07:38> Lab Data Labs: Lab Results 06/09/22 06/09/22 06/09/22 Range/Units 14:18 14:18 14:18 WBC 6.5 (4.5-11.0) X10^3/uL RBC 4.61 (4.0-5.2) X10^6/uL Hgb 15.2 (12.0-16.0) g/dL Hct 44.2 (36-46) % MCV 95.7 (80-100) fL MCH 33.0 (26-34) PG MCHC 34.5 (30-36) % RDW 12.4 (11.6-14.8) % Plt Count 242 (150-400) X10^3/uL Neut % (Auto) 62.8 (50-75) % Lymph % (Auto) 24.4 L (25-40) % [place] % (Auto) 10.9 (3-14) % Eos % (Auto) 1.5 L (2-4) % Baso % (Auto) 0.4 (0-2) % Neut # (Auto) 4100 (5309-5169) /uL Lymph # (Auto) 1600 (5661-1254) /uL [place] # (Auto) 700 (0-900) /uL Eos # (Auto) 100 (0-450) /uL Baso # (Auto) 0 (0-100) /uL PT 11.7 (10.1-12.7) SECONDS INR 1.0 (0.9-1.3) D-Dimer (<500) ng/ml Sodium 140 (137-145) mmol/L Potassium 4.7 (3.4-5.1) mmol/L Chloride 102 (98-107) mmol/L Carbon Dioxide 30 (22-32) mmol/L BUN 6 L (7-17) mg/dL Creatinine 0.52 (0.52-1.04) mg/dL Estimated GFR > 60 (>60) mL/min BUN/Creatinine Ratio 11.5 (6-22) Glucose 84 (70-100) mg/dL Lactate (0.7-2.1) mmol/L Calcium 9.2 (8.4-10.2) mg/dL Total Bilirubin 1.0 (0.2-1.3) mg/dL AST 41 H (14-36) IU/L ALT 34 (<35) IU/L Alkaline Phosphatase 83 (38-126) U/L Troponin I < 0.012 (0.01-0.034) ng/mL NT-Pro-B Natriuret Pep 48 (<125) pg/mL Total Protein 8.1 (6.3-8.2) g/dL Albumin 4.4 (3.5-5.0) g/dL Globulin 3.7 (1.7-4.1) g/dL Albumin/Globulin Ratio 1.2 (1.0-2.8) TSH (0.47-4.68) uIU/mL Urine RBC (0-5/HPF) Urine WBC (0-5/HPF) Ur Squamous Epith Cells (0-5/HPF) Urine Bacteria (None) Ur Culture Indicated? SARS-CoV-2 (PCR) (Negative) Influenza A (RT-PCR) (NEGATIVE) Influenza B (RT-PCR) (NEGATIVE) RSV (PCR) (Negative) 06/09/22 06/09/22 06/09/22 Range/Units 14:18 15:28 16:03 WBC (4.5-11.0) X10^3/uL RBC (4.0-5.2) X10^6/uL Hgb (12.0-16.0) g/dL Hct (36-46) % MCV (80-100) fL MCH (26-34) PG MCHC (30-36) % RDW (11.6-14.8) % Plt Count (150-400) X10^3/uL Neut % (Auto) (50-75) % Lymph % (Auto) (25-40) % [place] % (Auto) (3-14) % Eos % (Auto) (2-4) % Baso % (Auto) (0-2) % Neut # (Auto) (8519-1711) /uL Lymph # (Auto) (6829-4704) /uL [place] # (Auto) (0-900) /uL Eos # (Auto) (0-450) /uL Baso # (Auto) (0-100) /uL PT (10.1-12.7) SECONDS INR (0.9-1.3) D-Dimer 266 (<500) ng/ml Sodium (137-145) mmol/L Potassium (3.4-5.1) mmol/L Chloride (98-107) mmol/L Carbon Dioxide (22-32) mmol/L BUN (7-17) mg/dL Creatinine (0.52-1.04) mg/dL Estimated GFR (>60) mL/min BUN/Creatinine Ratio (6-22) Glucose (70-100) mg/dL Lactate 1.7 (0.7-2.1) mmol/L Calcium (8.4-10.2) mg/dL Total Bilirubin (0.2-1.3) mg/dL AST (14-36) IU/L ALT (<35) IU/L Alkaline Phosphatase (38-126) U/L Troponin I (0.01-0.034) ng/mL NT-Pro-B Natriuret Pep (<125) pg/mL Total Protein (6.3-8.2) g/dL Albumin (3.5-5.0) g/dL Globulin (1.7-4.1) g/dL Albumin/Globulin Ratio (1.0-2.8) TSH 1.04 (0.47-4.68) uIU/mL Urine RBC (0-5/HPF) Urine WBC (0-5/HPF) Ur Squamous Epith Cells (0-5/HPF) Urine Bacteria (None) Ur Culture Indicated? SARS-CoV-2 (PCR) (Negative) Influenza A (RT-PCR) (NEGATIVE) Influenza B (RT-PCR) (NEGATIVE) RSV (PCR) (Negative) 06/09/22 06/09/22 Range/Units 16:05 16:27 WBC (4.5-11.0) X10^3/uL RBC (4.0-5.2) X10^6/uL Hgb (12.0-16.0) g/dL Hct (36-46) % MCV (80-100) fL MCH (26-34) PG MCHC (30-36) % RDW (11.6-14.8) % Plt Count (150-400) X10^3/uL Neut % (Auto) (50-75) % Lymph % (Auto) (25-40) % [place] % (Auto) (3-14) % Eos % (Auto) (2-4) % Baso % (Auto) (0-2) % Neut # (Auto) (2832-7384) /uL Lymph # (Auto) (2276-9405) /uL [place] # (Auto) (0-900) /uL Eos # (Auto) (0-450) /uL Baso # (Auto) (0-100) /uL PT (10.1-12.7) SECONDS INR (0.9-1.3) D-Dimer (<500) ng/ml Sodium (137-145) mmol/L Potassium (3.4-5.1) mmol/L Chloride (98-107) mmol/L Carbon Dioxide (22-32) mmol/L BUN (7-17) mg/dL Creatinine (0.52-1.04) mg/dL Estimated GFR (>60) mL/min BUN/Creatinine Ratio (6-22) Glucose (70-100) mg/dL Lactate (0.7-2.1) mmol/L Calcium (8.4-10.2) mg/dL Total Bilirubin (0.2-1.3) mg/dL AST (14-36) IU/L ALT (<35) IU/L Alkaline Phosphatase (38-126) U/L Troponin I (0.01-0.034) ng/mL NT-Pro-B Natriuret Pep (<125) pg/mL Total Protein (6.3-8.2) g/dL Albumin (3.5-5.0) g/dL Globulin (1.7-4.1) g/dL Albumin/Globulin Ratio (1.0-2.8) TSH (0.47-4.68) uIU/mL Urine RBC None seen (0-5/HPF) Urine WBC 0-1/hpf (0-5/HPF) Ur Squamous Epith Cells 0-1 /hpf (0-5/HPF) Urine Bacteria None seen (None) Ur Culture Indicated? Cult not indicated SARS-CoV-2 (PCR) Negative (Negative) Influenza A (RT-PCR) Flu a negative (NEGATIVE) Influenza B (RT-PCR) Flu b negative (NEGATIVE) RSV (PCR) Negative (Negative) Urine Dip Bedside Urine Glucose Negative Bedside Urine Bilirubin - Negative Bedside Urine Ketone - Negative Urine Specific [place] 1.010 Bedside Urine Occult Blood - Negative Bedside Urine pH 8.0 Bedside Urine Protein - Negative Bedside Urine Urobilinogen - Negative Bedside Urine Nitrite - Negative Bedside Urine Leukocytes - Negative Esterase Discharge Plan Departure Patient Disposition: Home Clinical Impression: Right lumbar radiculopathy, Shortness of breath, Encounter for assessment for deep vein thrombosis (DVT), DDD (degenerative disc disease), lumbar Instructions: How to Manage Shortness of Breath, Lumbar Radiculopathy Activity Restrictions/Additional Instructions: *You have been diagnosed with negative ultrasound for a blood clot. The D-dimer, lab value of clots was negative also for elevation. A means that there are no blood clots likely anywhere in your body at this time. Your EKG does not show any heart strain, your lab work does not show any problems with your organs, any of them, no evidence of a heart attack, heart failure, urinary tract infection, infection of any kind. We will call you if the respiratory panel is positive for COVID, or influenza. Please follow-up with your primary care provider about your complaints and discuss how to treat this for you. The right-sided leg pain is concerning for nerve pain from your lumbar spine. If you lift your right leg in a straight position and feel back pain, that is where this pain is coming from. Please stay hydrated, follow-up with your regular doctor, return to the emergency department for fever, inability to keep anything down, weakness, or other emergent concern. Chest x-ray does not show any sign of pneumonia or an enlarged heart. Your potassium today is normal at 4.7, all of your lab work is within normal ranges without concern for any elevations or low values. Please use any medication that you are not allergic to to help treat you with your low back pain in this exacerbation. There are multiple allergies on your allergy list, please take anything that you can tolerate to help treat your low back pain and follow up with your regular doctor for referral to physical therapy because this will be helpful for you more so than any medication. *What to do: *Please continue to take your regular medications as directed. [ ] New medication prescriptions sent to your pharmacy: [ ] [ ] New medication written as a paper prescription [ x] No new medications given *Please follow up with your primary care provider in 2-3 days, call for an appointment. Let them know you were seen in the Emergency Department and that we asked that you be seen for follow-up. We will electronically transmit a record of today's note if your PCP is in our system *If you do not have a primary care provider please contact [phone] to establish care with one of the [facility] primary care providers. *Return to Emergency Department if you should have any new, worsening, or concerning symptoms, such as [fever greater than 101F, chills, worsening pain, persistent vomiting or other bothersome symptoms]. Prescriptions: No Action vitamin E 400 unit Capsule 400 unit PO DAILY Qty: 0 Rx Instructions: No longer takes cholecalciferol (vitamin D3) [Vitamin D3] 2,000 UNIT capsule 2,000 iu PO DAILY Qty: 0 omega 0-hkw-saa-fish oil [Fish Oil] 1,000 mg (120 mg-180 mg) Capsule 1 cap PO DAILY Qty: 0 Label Comments: patient states has not taken for months but wants to start taking again. 07/02/18 mupirocin 2 % ointment 1 applic topical BID ascorbic acid (vitamin C) [Vitamin C] 250 mg Tablet,Chewable 1,000 mg PO DAILY docusate sodium [DOK] 100 mg Capsule 200 mg PO DAILY Qty: 20 0RF acetaminophen-codeine [Tylenol-Codeine #3] 300-30 mg tablet 1 tab PO Q4-6H PRN (Reason: pain) Qty: 30 0RF (DME) Hospital Bed Qty: 1 0RF Rx Instructions: 1 hospital air bed Duration 3 months. DX S82.001A DX M51.26 Referrals: Roman Gallardo MD [Primary Care Provider] - Stand Alone Forms: Patient Portal/API <Raquel Brice DO - Last Filed: 06/17/22 07:38> Cosign ED Attending Cosignature Attestation: I was immediately available in the department for consultation. Documentation has been reviewed.
[2022-06-09 15:41] LABS: D Dimer 266 ng/ml (<500)
--- NOTE | 2022-06-09 15:44 | DI.US.S_ITS ---
PROCEDURE: US PERIPH VENOUS LOW EXTREM RT INDICATIONS: KNEE PAIN TECHNIQUE: Real-time imaging, as well as color and pulse Doppler interrogation, were performed of the lower extremity deep veins from the inguinal ligament to the popliteal fossa. COMPARISON: None. FINDINGS: The common femoral, femoral and popliteal veins are normally compressible, and free of intraluminal thrombus. Color and pulse Doppler demonstrate normal phasic intraluminal flow. There is normal augmentation response to distal compression maneuver. IMPRESSION: No evidence of DVT in visualized right lower extremity veins. Dictated by: Arturo Mae M.D. on 06/09/2022 at 16:33 Approved by: Arturo Mae M.D. on 06/09/2022 at 16:34
--- NOTE | 2022-06-09 15:46 | DI.RAD.S_ITS ---
PROCEDURE: XR LUMBAR SPINE 2-3V INDICATIONS: back pain without trauma TECHNIQUE: 3 views of the lumbar spine were acquired. COMPARISON: None. FINDINGS: Bones: 5 ldf-[id number]-[id number] vertebrae are present. There is mild rightward curvature of lumbar spine with apex at L3 level. Degenerative endplate changes and bilateral facet arthrosis at L3-4 through L5-S1 levels are seen.. No vertebral body compression fractures. No suspicious bony lesions. Soft tissues: Overlying bowel gas pattern is normal. No suspicious soft tissue calcifications. IMPRESSION: Degenerative disc disease in mid to lower lumbar spine. No acute compression fracture or spondylolisthesis. Dictated by: Arturo Mae M.D. on 06/09/2022 at 16:37 Approved by: Arturo Mae M.D. on 06/09/2022 at 16:38
[2022-06-09 16:21] LABS: Bacteria Urine None Seen; Culture Indicated Urine Cult Not Indicated; RBC Urine None Seen (0-5/HPF); Squamous Epithelial Cell Urine 0-1 /HPF (0-5/HPF); WBC Urine 0-1/HPF (0-5/HPF)
[2022-06-09 16:49] LABS: Thyroid Stimulating Hormone 1.04 uIU/mL (0.47-4.68)
[2022-06-09 17:30] LABS: Influenza A - CEPHEID Flu A NEGATIVE (NEGATIVE); Influenza B - CEPHEID Flu B NEGATIVE (NEGATIVE); Respiratory Syncytial Virus Negative (Negative)
[2022-06-09 17:36] LABS: COVID-19 CEPHEID 4-PLEX PCR Negative (Negative)
== END 2022-06-09 17:54 | disposition home or self-care (01) ==
PROVIDERS: Emergency Medicine; Emergency Provider Nurse Practitioner Critical Care Medicine; PCP Internal Medicine
DX: M54.16 Radiculopathy, lumbar region (principal); R06.02 Shortness of breath; M51.36 Other intervertebral disc degeneration, lumbar region; Z20.822 Contact with and (suspected) exposure to COVID-19
CPT/HCPCS: 0241U; 36415; 71045; 72100; 80053; 81003; 81015; 83605; 83880; 84443; 84484; 85025; 85379; 85610; 93005; 93971; 99284

== ENCOUNTER 2022-10-06 19:52 | Emergency (ER) | payer OTHER, MEDICAID, SELFPAY ==
[2019-06-26 11:51] VITALS: BMI 33.1
[2022-10-06 19:59] VITALS: BP 171/88; PULSE 76; RESP 18; TEMP 37; O2SAT 99; BMI 31.6
--- NOTE | 2022-10-06 20:39 | PC.NURSE ---
Saw ENT last week for possible foreign body in left upper throat.She said nothing noted during that exam.
--- NOTE | 2022-10-06 20:42 | ED_ITS ---
HPI - General Adult General Chief complaint: Upper Respiratory Symptoms Stated complaint: thinks tonsillar stone, difficulty breathing, ches Time Seen by Provider: 10/06/22 20:34 Source: patient Mode of arrival: Ambulatory Limitations: no limitations History of Present Illness HPI narrative: The patient is a 52-year-old female who is here for evaluation of what she states is a tonsillar stone and swelling in discomfort under her left tongue and on the left side of her neck which she states is having issues causing nerve to have difficulty with breathing. This actually has been going on for the past several months. She has been seen by ENT. She was told that her tonsils are unremarkable. She has had a endoscopy performed. She stated that she was told to come to the emergency department by the ENT doctors for imaging of her neck. Related Data Home Medications Medication Instructions Recorded Confirmed cholecalciferol (vitamin D3) 50 2,000 iu PO DAILY ##0 04/11/11 06/26/19 mcg (2,000 unit) capsule (Vitamin D3) omega 1-bgq-lcr-fish oil 1,000 mg 1 cap PO DAILY ##0 04/11/11 06/26/19 (120 mg-180 mg) capsule (Fish Oil) vitamin E 268 mg (400 unit) capsule 400 unit PO DAILY ##0 04/11/11 06/26/19 mupirocin 2 % topical ointment 1 applic topical BID 09/04/18 06/26/19 ascorbic acid (vitamin C) 250 mg 1,000 mg PO DAILY 06/26/19 06/26/19 chewable tablet (Vitamin C) Previous Rx's Medication Instructions Recorded acetaminophen 300 mg-codeine 30 mg 1 tab PO Q4-6H PRN pain #30 tabs 07/01/19 tablet (Tylenol-Codeine #3) docusate sodium 100 mg capsule 200 mg PO DAILY #20 caps 07/01/19 (DOK) Hospital Bed #1 ea 07/02/19 Allergies Allergy/AdvReac Type Severity Reaction Status Date / Time amoxicillin [AMOXICILLIN] Allergy Intermediate Anaphylaxis Verified 10/06/22 20:06 aspirin [ASPIRIN] Allergy Intermediate Swelling Verified 10/06/22 20:06 of Lip/Tongue/Throat clindamycin [CLINDAMYCIN] Allergy Intermediate Anaphylaxis Verified 10/06/22 20:06 doxycycline [DOXYCYCLINE] Allergy Intermediate Blister Verified 10/06/22 20:06 erythromycin base Allergy Intermediate Palpitation Verified 10/06/22 20:06 [From ERYTHROCIN] s Penicillins [PENICILLINS] Allergy Intermediate Anaphylaxis Verified 10/06/22 20:06 albuterol Allergy Unknown Verified 10/06/22 20:06 azithromycin Allergy Verified 10/06/22 20:06 levofloxacin [From Levaquin] Allergy Verified 10/06/22 20:06 Sulfa (Sulfonamide Allergy Difficulty Verified 10/06/22 20:06 Antibiotics) Breathing hydrocodone AdvReac Intermediate Verified 10/06/22 20:06 ibuprofen AdvReac Intermediate Swelling Verified 10/06/22 20:06 of Lip/Tongue/Throat prednisone AdvReac Mild Verified 10/06/22 20:06 Review of Systems Constitutional Constitutional: Reports system reviewed and no additional complaints, except as documented ENT Ears, Nose, Mouth, and Throat: Reports system reviewed and no additional com plaints, except as documented Respiratory Respiratory: Reports system reviewed and no additional complaints, except as documented Integumentary/Breasts Skin/Breast: Reports system reviewed and no additional complaints, except as documented Patient History Medical History Cataract of left eye Cataract of right eye Cyst of bone of left hand Fracture dislocation of right wrist Fracture of left ankle Fracture of left upper extremity Fracture of right wrist with delayed healing H/O chronic cholecystitis Healthy adult Herniated nucleus pulposus, L5-S1 No pertinent family history Scoliosis Surgical History History of hysterectomy No pertinent past surgical history Social History household members: none Smoking Status: Never smoker alcohol intake: current Smoking Status: Never smoker alcohol intake frequency: 3 or more drinks per day Substance Use Type: does not use Exam Initial Vital Signs Initial Vital Signs: Vital Signs Temperature 98.6 F 10/06/22 19:59 Pulse Rate 76 10/06/22 19:59 Respiratory Rate 18 10/06/22 19:59 Blood Pressure 171/88 H 10/06/22 19:59 Pulse Oximetry 99 10/06/22 19:59 Oxygen Delivery Method Room Air 10/06/22 19:59 Const General: cooperative, comfortable and No ill appearing HENMT Head: normal to inspection and normocephalic Mouth: oral mucosae normal Throat: posterior oropharynx normal and tonsils normal Neck Lymphatic: No lymphadenopathy Resp Effort & Inspection: normal respiratory effort Skin General: no rashes or lesions noted Course Orders Ordered: ED Orders 10/06/22 20:42 CT soft tissue neck wo con Stat 10/06/22 20:45 Basic Metabolic Panel Stat Complete Blood Count AUTO DIFF Stat Vital Signs Vital signs: Vital Signs - 8 hr 10/06/22 23:16 Pulse Rate 70 Respiratory Rate 19 Blood Pressure 131/92 H Pulse Oximetry 99 Oxygen Delivery Method Room Air Medical Decision Making Lab Data Lab results reviewed: Yes I reviewed the patient's lab results. 10/06/22 20:45 10/06/22 20:45 Labs: Lab Results 10/06/22 10/06/22 Range/Units 20:45 20:45 WBC 7.5 (4.5-11.0) X10^3/uL RBC 4.43 (4.0-5.2) X10^6/uL Hgb 14.7 (12.0-16.0) g/dL Hct 42.3 (36-46) % MCV 95.4 (80-100) fL MCH 33.3 (26-34) PG MCHC 34.9 (30-36) % RDW 12.4 (11.6-14.8) % Plt Count 228 (150-400) X10^3/uL Neut % (Auto) 62.2 (50-75) % Lymph % (Auto) 28.4 (25-40) % [place] % (Auto) 7.0 (3-14) % Eos % (Auto) 2.0 (2-4) % Baso % (Auto) 0.4 (0-2) % Neut # (Auto) 4700 (1332-8007) /uL Lymph # (Auto) 2100 (7184-0773) /uL [place] # (Auto) 500 (0-900) /uL Eos # (Auto) 200 (0-450) /uL Baso # (Auto) 0 (0-100) /uL Sodium 137 (137-145) mmol/L Potassium 3.6 (3.4-5.1) mmol/L Chloride 101 (98-107) mmol/L Carbon Dioxide 29 (22-32) mmol/L BUN 9 (7-17) mg/dL Creatinine 0.62 (0.52-1.04) mg/dL Estimated GFR > 60 (>60) mL/min BUN/Creatinine Ratio 14.5 (6-22) Glucose 94 (70-100) mg/dL Calcium 9.2 (8.4-10.2) mg/dL Imaging Data CT soft tissue of neck: Radiologist's Impression: PROCEDURE:? CT SOFT TISSUE NECK WO CON ? INDICATIONS:? Subjective left-sided neck swelling ? TECHNIQUE:? Non-contrast 3.0 mm axial sections acquired from the sella to the aortic arch.? Additional oblique axial 3.0 mm sections acquired through the pharynx.? 3 mm thick coronal and sagittal reformats were generated.? For radiation dose reduction, the following was used:? automated exposure control.? ? COMPARISON:? None. ? FINDINGS:? Image quality:? Excellent.? ? Lymph nodes:? No lymphadenopathy by size criteria. ? Vessels:? Non-opacified vessels appear normal in caliber.? ? Neck spaces:? The oropharynx, nasopharynx, and pharynx demonstrate no mucosal lesions.? The vocal cords, false vocal cords, pyriform sinuses, epiglottis, vallecula, and tongue base all appear normal.? Extramucosal spaces appear unremarkable.? ? Glands:? There is mild asymmetric enlargement of the right submandibular gland which demonstrates a mildly lobulated contour.? No associated stones or definite submandibular duct dilatation.? The parotid glands appear normal, without stones.? There are few small bilateral thyroid nodules measuring up to 0.8 cm on the right. ? Miscellaneous:? Visualized brain and orbits appear normal.? Lung apices appear clear.? Superficial soft tissues appear normal.? ? IMPRESSION:? ? 1. No discrete mass, fluid collection, or definite lymphadenopathy demonstrated in the left neck to correlate with patient's palpable abnormality.? Recommend clinical follow-up and if clinical concern persists, further evaluation may be obtained with contra st enhanced MRI. ? 2. Mild asymmetric enlargement of the right submandibular gland of indeterminate clinical significance.? No associated fat stranding, stone, or ductal dilatation.? MDM Narrative Medical decision making narrative: Patient has no respiratory distress. Is talking in full sentences. Exam is unremarkable. The CT scan shows no acute pathology. No signs of abscess. No signs of abnormal lymph nodes. No indication for antibiotics. Trying to reassure the patient that there was no acute issues in advised that if she was still having symptoms that she needs to return to the ear nose and throat doctors for further evaluation. Discharge Plan Departure Patient Disposition: Home Clinical Impression: Tonsil stone Activity Restrictions/Additional Instructions: Your workup here in the emergency department does not show any signs of a foreign body or an abscess or any other emergent condition in your throat. I recommend that you contact the Ear Nose and Throat doctors for a follow-up. Prescriptions: No Action vitamin E 400 unit Capsule 400 unit PO DAILY Qty: 0 Rx Instructions: No longer takes cholecalciferol (vitamin D3) [Vitamin D3] 2,000 UNIT capsule 2,000 iu PO DAILY Qty: 0 omega 6-bpd-ybk-fish oil [Fish Oil] 1,000 mg (120 mg-180 mg) Capsule 1 cap PO DAILY Qty: 0 Patient Comments: patient states has not taken for months but wants to start taking again. 07/02/18 mupirocin 2 % ointment 1 applic topical BID ascorbic acid (vitamin C) [Vitamin C] 250 mg Tablet,Chewable 1,000 mg PO DAILY docusate sodium [DOK] 100 mg Capsule 200 mg PO DAILY Qty: 20 0RF acetaminophen-codeine [Tylenol-Codeine #3] 300-30 mg tablet 1 tab PO Q4-6H PRN (Reason: pain) Qty: 30 0RF (DME) Hospital Bed Qty: 1 0RF Rx Instructions: 1 hospital air bed Duration 3 months. DX S82.001A DX M51.26 Referrals: Roman Gallardo MD [Primary Care Provider] - Stand Alone Forms: Patient Portal/API
--- NOTE | 2022-10-06 20:42 | DI.CT.S_ITS ---
PROCEDURE: CT SOFT TISSUE NECK WO CON INDICATIONS: Subjective left-sided neck swelling TECHNIQUE: Non-contrast 3.0 mm axial sections acquired from the sella to the aortic arch. Additional oblique axial 3.0 mm sections acquired through the pharynx. 3 mm thick coronal and sagittal reformats were generated. For radiation dose reduction, the following was used: automated exposure control. COMPARISON: None. FINDINGS: Image quality: Excellent. Lymph nodes: No lymphadenopathy by size criteria. Vessels: Non-opacified vessels appear normal in caliber. Neck spaces: The oropharynx, nasopharynx, and pharynx demonstrate no mucosal lesions. The vocal cords, false vocal cords, pyriform sinuses, epiglottis, vallecula, and tongue base all appear normal. Extramucosal spaces appear unremarkable. Glands: There is mild asymmetric enlargement of the right submandibular gland which demonstrates a mildly lobulated contour. No associated stones or definite submandibular duct dilatation. The parotid glands appear normal, without stones. There are few small bilateral thyroid nodules measuring up to 0.8 cm on the right. Miscellaneous: Visualized brain and orbits appear normal. Lung apices appear clear. Superficial soft tissues appear normal. IMPRESSION: 1. No discrete mass, fluid collection, or definite lymphadenopathy demonstrated in the left neck to correlate with patient's palpable abnormality. Recommend clinical follow-up and if clinical concern persists, further evaluation may be obtained with contrast enhanced MRI. 2. Mild asymmetric enlargement of the right submandibular gland of indeterminate clinical significance. No associated fat stranding, stone, or ductal dilatation. Dictated by: Zain Robins M.D. on 10/06/2022 at 22:32 Approved by: Zain Robins M.D. on 10/06/2022 at 22:36
[2022-10-06 21:01] LABS: Add Manual Diff / Slide Review NO; Basophils Absolute Auto 0 /uL (0-100); Basophils Percent Auto 0.4 % (0-2); Eosinophils Absolute Auto 200 /uL (0-450); Hematocrit 42.3 % (36-46); Hemoglobin 14.7 g/dL (12.0-16.0); Lymphocytes Absolute Auto 2100 /uL (1100-4500); Lymphocytes Percent Auto 28.4 % (25-40); Mean Corpuscular HGB Conc 34.9 % (30-36); Mean Corpuscular Hemoglobin 33.3 PG (26-34); Mean Corpuscular Volume 95.4 fL (80-100); Monocytes Absolute Auto 500 /uL (0-900); Neutrophils Absolute Auto 4700 /uL (1500-7000); Neutrophils Percent Auto 62.2 % (50-75); Platelet Count 228 X10^3/uL (150-400); Red Blood Cell Count 4.43 X10^6/uL (4.0-5.2); Red Cell Distribution Width 12.4 % (11.6-14.8); White Blood Cell Count 7.5 X10^3/uL (4.5-11.0)
[2022-10-06 21:10] LABS: BUN Creatinine Ratio 14.5 (6-22); Blood Urea Nitrogen 9 mg/dL (7-17); Calcium 9.2 mg/dL (8.4-10.2); Carbon Dioxide 29 mmol/L (22-32); Chloride 101 mmol/L (98-107); Estimated Glomerular Filt Rate > 60 mL/min (>60); Glucose 94 mg/dL (70-100); HEMOLYSIS < 15 (0-50); Potassium 3.6 mmol/L (3.4-5.1); Sodium 137 mmol/L (137-145)
--- NOTE | 2022-10-06 22:03 | PC.NURSE ---
Reports It moved and then went back. Referring to her feeling like there is something in her throat. Continues without respiratory distress and talking in full sentences.
[2022-10-06 23:16] VITALS: BP 131/92; PULSE 70; RESP 19; O2SAT 99
[2022-10-16 05:41] LABS: Hydroxyapatite 100 % (.)
== END 2022-10-06 23:24 | disposition home or self-care (01) ==
PROVIDERS: Emergency Provider Emergency Medicine; PCP Internal Medicine
DX: J35.8 Other chronic diseases of tonsils and adenoids (principal)
CPT/HCPCS: 36415; 70490; 80048; 82365; 85025; 99283